=== PATIENT | male | born 2000 | race Hispanic/Latino ===

== ENCOUNTER 2022-01-08 00:10 | Emergency (ER) | payer OTHER ==
[~2022-01-08] VITALS: Ht 180.3 cm; Wt 117.0 kg
[2022-01-08 00:47] VITALS: BP 142/88
[2022-01-08 00:55] LABS: CREATININE 1.3 mg/dL (0.5-1.5); POTASSIUM 3.3 mmol/L (3.5-5.1)
[2022-01-08 00:57] LABS: BASOPHILS % (AUTO) 0.2 % (0.0-5.0); EOSINOPHILS % (AUTO) 0.5 % (0.0-8.0); HEMATOCRIT 48.7 % (36-48); LYMPHOCYTES % (AUTO) 20.4 % (21.0-51.0); MEAN CORPUSCULAR HGB CONC 35.9 g/dL (32.0-36.0); MEAN CORPUSCULAR VOLUME 83.5 fL (79-99); MONOCYTES % (AUTO) 8.2 % (3.0-13.0); NEUTROPHILS % (AUTO) 70.3 % (40.0-77.0); PLATELET COUNT (AUTO) 283 K/uL (130-400); RED BLOOD CELL COUNT(AUTO) 5.83 MIL/uL (4.00-5.50); RED CELL DISTRIBUTION WIDTH 12.4 % (11.0-15.5); WHITE BLOOD COUNT (AUTO) 11.2 K/uL (4.8-10.8)
[2022-01-08 00:59] LABS: ALBUMIN 4.6 g/dL (3.5-5.0); TOTAL PROTEIN, SERUM 8.4 g/dL (6.0-8.3)
[2022-01-08] MEDS ORDERED: PANTOPRAZOLE 40 MG/VIAL IVP ONE (01:00)
[2022-01-08] MEDS ORDERED: ONDANSETRON 4MG INJ IVP ONE (01:00)
[2022-01-08] MEDS ORDERED: KETOROLAC 30MG VIAL (30MG/ML) IVP ONE (01:00)
[2022-01-08] MEDS ORDERED: 0.9%NACL 1000ML 1,000 ML IV ONE (01:00)
[2022-01-08] MEDS ORDERED: ACET-2079 PO (02:11)
[2022-01-09] MEDS ORDERED: FAMO-136 PO (19:30)
[2022-01-09] MEDS ORDERED: ONDA4TAB10 PO (19:30)
[2022-01-09] MEDS ORDERED: DICY20TA2 PO (19:30)
== END 2022-01-08 02:32 | disposition home or self-care (01) ==
LOC: EDSEX 00:10 → EDH 00:10
DX: K80.70 Calculus of gallbladder and bile duct without cholecystitis without obstruction (principal); F45.8 Other somatoform disorders
CPT/HCPCS: 99284; 96374; 76705; 96375; 96361; 80053; 83690; 85025; 36415; J7030; J2405; J1885; C9113

== ENCOUNTER 2022-01-09 18:36 | Emergency (ER) | payer OTHER ==
[~2022-01-09] VITALS: Ht 180.3 cm; Wt 117.0 kg
[~2022-01-09 18:36] MED LIST: ACET-2079 PO
[2022-01-09] MEDS ORDERED: MORPHINE 2 MG SYG IVP ONE (19:00)
[2022-01-09] MEDS ORDERED: ONDANSETRON 4MG INJ IVP ONE (19:00)
[2022-01-09 19:09] LABS: BASOPHILS % (AUTO) 0.5 % (0.0-5.0); EOSINOPHILS % (AUTO) 0.5 % (0.0-8.0); HEMATOCRIT 47.4 % (42-54); MEAN CORPUSCULAR HGB CONC 36.1 g/dL (32.0-36.0); MEAN CORPUSCULAR VOLUME 83.2 fL (79-99); MONOCYTES % (AUTO) 9.8 % (3.0-13.0); NEUTROPHILS % (AUTO) 64.9 % (40.0-77.0); PLATELET COUNT (AUTO) 303 K/uL (130-400); RED CELL DISTRIBUTION WIDTH 12.3 % (11.0-15.5); WHITE BLOOD COUNT (AUTO) 11.4 K/uL (4.8-10.8)
[2022-01-09 19:12] LABS: APPEARANCE,URINE CLEAR (CLEAR); BILIRUBIN,URINE MODERATE (NEGATIVE); COLOR,URINE YELLOW (YELLOW); GLUCOSE, URINE (UA) NEGATIVE (NEGATIVE); KETONES,URINE >=80 mg/dL (NEGATIVE); LEUKOCYTE ESTERASE ,URINE NEGATIVE (NEGATIVE); NITRATE,URINE NEGATIVE (NEGATIVE); OCCULT BLOOD,URINE NEGATIVE (NEGATIVE); PROTEIN,URINE TRACE mg/dL (NEGATIVE)
[2022-01-09 19:13] LABS: ALBUMIN 4.4 g/dL (3.5-5.0); CREATININE 1.3 mg/dL (0.5-1.5); POTASSIUM 3.3 mmol/L (3.5-5.1); TOTAL PROTEIN, SERUM 8.2 g/dL (6.0-8.3)
[2022-01-09] MEDS ORDERED: FAMO-136 PO (19:30)
[2022-01-09] MEDS ORDERED: DICY20TA2 PO (19:30)
[2022-01-09] MEDS ORDERED: ONDA4TAB10 PO (19:30)
[2022-01-09 19:33] VITALS: BP 113/62
[2022-01-09 19:38] LABS: BACTERIA,URINE Few /HPF (None Seen); RBC,URINE None Seen /HPF (0-1)
[2022-01-09 19:40] LABS: MUCUS,URINE Few LPF (None Seen); SQUAMOUS EPITHELIAL CELL,UR None Seen /HPF (0-2)
== END 2022-01-09 20:10 | disposition home or self-care (01) ==
LOC: EDH 18:36
DX: K80.20 Calculus of gallbladder without cholecystitis without obstruction (principal); Z20.822 Contact with and (suspected) exposure to COVID-19; Z79.899 Other long term (current) drug therapy
CPT/HCPCS: 99284; 96374; 76705; 87635; 96375; 80053; 83690; 85025; 81001; 36415; C9803; J2405

== ENCOUNTER 2022-06-01 22:53 | Inpatient (IN) | payer OTHER ==
[~2022-06-01] VITALS: Ht 180.3 cm; Wt 117.0 kg
[~2022-06-01 22:53] MED LIST changes: +DICY20TA2 PO; +FAMO-136 PO; +ONDA4TAB10 PO
[2022-06-01 23:22] LABS: BASOPHILS % (AUTO) 0.3 % (0.0-5.0); EOSINOPHILS % (AUTO) 0.1 % (0.0-8.0); HEMATOCRIT 48.8 % (42-54); LYMPHOCYTES % (AUTO) 10.1 % (21.0-51.0); MEAN CORPUSCULAR HEMOGLOBIN 30.2 pg (27.0-33.0); MEAN CORPUSCULAR HGB CONC 36.1 g/dL (32.0-36.0); MEAN CORPUSCULAR VOLUME 83.8 fL (79-99); MONOCYTES % (AUTO) 4.2 % (3.0-13.0); NEUTROPHILS % (AUTO) 84.9 % (40.0-77.0); PLATELET COUNT (AUTO) 317 K/uL (130-400); RED BLOOD CELL COUNT(AUTO) 5.82 MIL/uL (4.50-6.20); RED CELL DISTRIBUTION WIDTH 12.1 % (11.0-15.5)
[2022-06-01] MEDS ORDERED: 0.9%NACL 1000ML 1,000 ML IV ONE (23:30)
[2022-06-01] MEDS ORDERED: DiphenhydrAMINE HCL 50 MG/ML VIAL IV ONE (23:30)
[2022-06-01] MEDS ORDERED: FAMOTIDINE 20MG VIAL IV ONE (23:30)
[2022-06-01] MEDS ORDERED: PROCHLORPERAZINE 10MG/2ML INJ IV ONE (23:30)
[2022-06-01 23:38] LABS: CREATININE 1.5 mg/dL (0.5-1.5); POTASSIUM 3.3 mmol/L (3.5-5.1)
[2022-06-01 23:42] LABS: ALBUMIN 4.9 g/dL (3.5-5.0); TOTAL PROTEIN, SERUM 8.7 g/dL (6.0-8.3)
[2022-06-02] MEDS ORDERED: 0.9%NACL 1000ML 1,000 ML IV ONE (01:00)
[2022-06-02] MEDS ORDERED: POTASSIUM BICARB/CIT AC 25 MEQ TABLET.EFF PO ONE (01:00)
[2022-06-02 01:12] LABS: APPEARANCE,URINE CLEAR (CLEAR); BILIRUBIN,URINE NEGATIVE (NEGATIVE); COLOR,URINE YELLOW (YELLOW); GLUCOSE, URINE (UA) NEGATIVE (NEGATIVE); KETONES,URINE 150 mg/dL (NEGATIVE); LEUKOCYTE ESTERASE ,URINE NEGATIVE Leu/uL (NEGATIVE); NITRATE,URINE NEGATIVE (NEGATIVE); OCCULT BLOOD,URINE NEGATIVE (NEGATIVE); PH,URINE 8.5 (5.0-8.0); PROTEIN,URINE 70 mg/dL (NEGATIVE)
[2022-06-02 01:16] LABS: MUCUS,URINE FEW LPF (None Seen); SQUAMOUS EPITHELIAL CELL,UR FEW /HPF (0-2); WBC,URINE 0-1 /HPF (0-1)
[2022-06-02] MEDS ORDERED: HYDROMORPHONE 0.5 MG SYG (0.5MG/0.5ML) ONE (01:20)
[2022-06-02] MEDS ORDERED: HYDROMORPHONE 0.5 MG SYG (0.5MG/0.5ML) IVP ONE (01:30)
[2022-06-02] MEDS ORDERED: CEFTRIAXONE 1G VIAL IVP ONE (03:30)
[2022-06-02] MEDS ORDERED: HYDROCODONE/ACETAMINOPHEN 5/325 MG TAB PO PRN ×2 (04:00)
[2022-06-02] MEDS ORDERED: HYDROMORPHONE 1 MG INJ IV PRN (04:00)
[2022-06-02] MEDS ORDERED: ACETAMINOPHEN 325 MG TAB PO PRN (04:00)
[2022-06-02] MEDS ORDERED: ZOSYN 3.375GM+NS 50ML 50 ML ONE (04:10)
[2022-06-02] MEDS ORDERED: CEFTRIAXONE 1G VIAL ONE (04:10)
[2022-06-02] MEDS: 0.9%NACL 1000ML 1,000 ML IV SCH ×3 (04:34→20:16)
[2022-06-02] MEDS: ZOSYN 3.375GM+NS 50ML 50 ML IV SCH ×3 (04:34→20:05)
[2022-06-02] MEDS ORDERED: POTASSIUM CHLORIDE 10% ELIXIR 20 MEQ/15 ML UDCUP PO PRN (05:00)
[2022-06-02] MEDS ORDERED: KCL 20 MEQ ERTAB PO PRN (05:00)
[2022-06-02] MEDS ORDERED: POTASSIUM CHLORIDE 10MEQ/100ML 100 ML IV PRN (05:00)
[2022-06-02] MEDS ORDERED: LIDOCAINE HCL-MPF 1% 2ML VIAL IV PRN (05:00)
[2022-06-02] MEDS ORDERED: CLOPIDOGREL 300MG TAB ONE (05:51)
[2022-06-02] MEDS ORDERED: ASPIRIN 81MG CHEW TAB ONE (05:51)
[2022-06-02] MEDS ORDERED: HEPARIN 25,000 UNITS/250ML D5W 0 ML IV ONE (05:53)
[2022-06-02] MEDS ORDERED: HEPARIN 5,000 UNIT VIAL ONE (05:53)
[2022-06-02 06:41] LABS: BASOPHILS % (AUTO) 0.2 % (0.0-5.0); EOSINOPHILS % (AUTO) 0.2 % (0.0-8.0); HEMATOCRIT 45.8 % (42-54); LYMPHOCYTES % (AUTO) 19.5 % (21.0-51.0); MEAN CORPUSCULAR HEMOGLOBIN 29.9 pg (27.0-33.0); MEAN CORPUSCULAR HGB CONC 35.2 g/dL (32.0-36.0); MONOCYTES % (AUTO) 8.1 % (3.0-13.0); NEUTROPHILS % (AUTO) 71.5 % (40.0-77.0); PLATELET COUNT (AUTO) 294 K/uL (130-400); RED BLOOD CELL COUNT(AUTO) 5.39 MIL/uL (4.50-6.20); RED CELL DISTRIBUTION WIDTH 12.5 % (11.0-15.5); WHITE BLOOD COUNT (AUTO) 13.3 K/uL (4.8-10.8)
[2022-06-02 06:52] LABS: ALBUMIN 4.1 g/dL (3.5-5.0); CREATININE 1.5 mg/dL (0.5-1.5); POTASSIUM 3.9 mmol/L (3.5-5.1); TOTAL PROTEIN, SERUM 7.6 g/dL (6.0-8.3)
[2022-06-02 07:09] LABS: HEMOGLOBIN A1C 5.2 % (4.0-6.0)
[2022-06-02] MEDS: ONDANSETRON 4MG INJ IV PRN (07:34)
[2022-06-02 07:47] LABS: ERYTHROCYTE SEDIMENTATION RATE 1 MM/HR (0-15)
[2022-06-02] MEDS: FAMOTIDINE 20MG VIAL IV SCH ×2 (08:29→20:05)
[2022-06-02 10:10] VITALS: BP 135/68
[2022-06-02] MEDS: MORPHINE 2 MG SYG IV PRN ×2 (11:28→20:09)
[2022-06-02] MEDS ORDERED: PROMETHAZINE HCL 25 MG/ML 1ML AMPULE IM ONE (11:30)
[2022-06-02 23:48] VITALS: BP 132/69
[2022-06-03] VITALS (21 sets, daily range): BP systolic 115–169; BP diastolic 64–112
[2022-06-03] MEDS: 0.9%NACL 1000ML 1,000 ML IV SCH ×2 (04:35→12:09)
[2022-06-03] MEDS: ZOSYN 3.375GM+NS 50ML 50 ML IV SCH ×4 (04:47→20:34)
[2022-06-03 05:10] LABS: BASOPHILS % (AUTO) 0.4 % (0.0-5.0); HEMATOCRIT 42.7 % (42-54); LYMPHOCYTES % (AUTO) 37.8 % (21.0-51.0); MEAN CORPUSCULAR HEMOGLOBIN 30.3 pg (27.0-33.0); MEAN CORPUSCULAR HGB CONC 34.2 g/dL (32.0-36.0); MEAN CORPUSCULAR VOLUME 88.6 fL (79-99); MONOCYTES % (AUTO) 7.3 % (3.0-13.0); NEUTROPHILS % (AUTO) 53.3 % (40.0-77.0); PLATELET COUNT (AUTO) 219 K/uL (130-400); RED BLOOD CELL COUNT(AUTO) 4.82 MIL/uL (4.50-6.20); RED CELL DISTRIBUTION WIDTH 12.5 % (11.0-15.5); WHITE BLOOD COUNT (AUTO) 10.1 K/uL (4.8-10.8)
[2022-06-03 05:30] LABS: ALBUMIN 3.7 g/dL (3.5-5.0); CREATININE 1.5 mg/dL (0.5-1.5); MAGNESIUM 2.1 mg/dL (1.80-2.40); POTASSIUM 3.8 mmol/L (3.5-5.1); TOTAL PROTEIN, SERUM 6.7 g/dL (6.0-8.3)
[2022-06-03] MEDS: MORPHINE 2 MG SYG IV PRN (06:18)
[2022-06-03] MEDS: ONDANSETRON 4MG INJ IV PRN (06:27)
[2022-06-03] MEDS ORDERED: METOCLOPRAMIDE 10 MG/2 ML VIAL IVP PRN (08:30)
[2022-06-03] MEDS ORDERED: METOCLOPRAMIDE 10 MG/2 ML VIAL IVP SCH (08:30)
[2022-06-03] MEDS ORDERED: PROMETHAZINE HCL 25 MG/ML 1ML AMPULE IM SCH (08:30)
[2022-06-03] MEDS: FAMOTIDINE 20MG VIAL IV SCH ×2 (09:13→20:34)
[2022-06-03] MEDS ORDERED: BUPIVACAINE/PF 0.5% 10ML VIAL ONE (12:35)
[2022-06-03] MEDS ORDERED: LIDOCAINE HCL 1% 20 ML VIAL ONE (12:35)
[2022-06-03] MEDS: KETOROLAC 30MG VIAL (30MG/ML) IVP PRN ×2 (12:52→23:42)
[2022-06-03] MEDS ORDERED: DEXAMETHASONE SOD PHOSPHATE 10MG/ML 1ML VIAL ONE (15:14)
[2022-06-03] MEDS ORDERED: SUCCINYLCHOLINE CHLORIDE 20 MG/ML 10 ML VIAL ONE ×2 (15:14→15:17)
[2022-06-03] MEDS ORDERED: NEOSTIGMINE 5MG/5ML SYR IV ONE (15:15)
[2022-06-03] MEDS ORDERED: ONDANSETRON 4MG INJ ONE (15:15)
[2022-06-03] MEDS ORDERED: FENTANYL CITRATE PF 50 MCG/1 ML 2ML VIAL ONE ×2 (15:15→18:11)
[2022-06-03] MEDS ORDERED: PROPOFOL 10 MG/ML 20ML VIAL IV ONE ×2 (15:15→17:22)
[2022-06-03] MEDS ORDERED: GLYCOPYRROLATE 1 MG/5 ML SYRINGE ONE (15:15)
[2022-06-03] MEDS ORDERED: ROCURONIUM 10MG/1ML SYR 10 MG/ML ML ONE (15:16)
[2022-06-03] MEDS ORDERED: MIDAZOLAM HCL 1 MG/ML 2ML VIAL ONE ×2 (15:16→15:43)
[2022-06-03] MEDS ORDERED: LIDOCAINE PF 100MG/5ML (2%) SYRINGE 5ML ONE (15:18)
[2022-06-03] MEDS ORDERED: MEPERIDINE-PF 25 MG/ML SYG ONE ×3 (17:27→18:06)
[2022-06-03] MEDS ORDERED: KETOROLAC 30MG VIAL (30MG/ML) ONE (17:29)
[2022-06-03] MEDS: HYDROMORPHONE 1 MG INJ ONE ×2 (18:28→18:40)
[2022-06-03] MEDS ORDERED: HYDROMORPHONE 1 MG INJ IVP ONE (18:30)
[2022-06-04] MEDS ORDERED: OXYCODONE/ACETAMIN 5/325MG TAB PO PRN
[2022-06-04] MEDS: 0.9%NACL 1000ML 1,000 ML IV SCH ×4 (01:28→20:55)
[2022-06-04 03:16] VITALS: BP 117/76
[2022-06-04] MEDS: ZOSYN 3.375GM+NS 50ML 50 ML IV SCH ×3 (05:48→20:55)
[2022-06-04] MEDS ORDERED: PHENAZOPYRIDINE HCL 200 MG TABLET PO SCH (06:00)
[2022-06-04 08:00] VITALS: BP 165/88
[2022-06-04] MEDS: FAMOTIDINE 20MG VIAL IV SCH ×2 (08:12→20:55)
[2022-06-04] MEDS: ONDANSETRON 4MG INJ IV PRN ×2 (08:15→20:55)
[2022-06-04 10:50] LABS: BASOPHILS % (AUTO) 0.1 % (0.0-5.0); HEMATOCRIT 46.6 % (42-54); LYMPHOCYTES % (AUTO) 11.1 % (21.0-51.0); MEAN CORPUSCULAR HGB CONC 35.6 g/dL (32.0-36.0); MEAN CORPUSCULAR VOLUME 84.1 fL (79-99); MONOCYTES % (AUTO) 9.1 % (3.0-13.0); NEUTROPHILS % (AUTO) 79.4 % (40.0-77.0); PLATELET COUNT (AUTO) 288 K/uL (130-400); RED BLOOD CELL COUNT(AUTO) 5.54 MIL/uL (4.50-6.20); RED CELL DISTRIBUTION WIDTH 12.1 % (11.0-15.5); WHITE BLOOD COUNT (AUTO) 16.3 K/uL (4.8-10.8)
[2022-06-04 10:57] LABS: CREATININE 1.2 mg/dL (0.5-1.5); POTASSIUM 3.9 mmol/L (3.5-5.1)
[2022-06-04] MEDS ORDERED: PROMETHAZINE HCL 25 MG TABLET PO PRN (11:00)
[2022-06-04 11:57] VITALS: BP 150/88
[2022-06-04] MEDS: ACETAMINOPHEN 325 MG TAB PO PRN (14:26)
[2022-06-04] MEDS ORDERED: METOCLOPRAMIDE 10 MG/2 ML VIAL IVP ONE (15:30)
[2022-06-04 16:00] VITALS: BP 148/80
[2022-06-04] MEDS: METOCLOPRAMIDE 10 MG/2 ML VIAL IVP SCH (17:14)
[2022-06-04] MEDS ORDERED: PHARMACY COMMUNICATION MISC SCH (17:30)
[2022-06-04] MEDS ORDERED: COMPOUND PO MISCELLANEOUS 1 EACH MISC MISC PRN (18:00)
[2022-06-04] MEDS ORDERED: LIDO 2% VISC 30ML+MAG/AL/SIMETH 30ML+DICYCLOMINE 20MG 10ML PO ONE ×3 (18:30)
[2022-06-04 20:13] VITALS: BP 156/70
[2022-06-04] MEDS: KETOROLAC 30MG VIAL (30MG/ML) IVP PRN (20:55)
[2022-06-04 23:28] VITALS: BP 155/85
[2022-06-05 04:00] VITALS: BP 148/76
[2022-06-05 05:17] LABS: BASOPHILS % (AUTO) 0.4 % (0.0-5.0); EOSINOPHILS % (AUTO) 0.2 % (0.0-8.0); HEMATOCRIT 43.2 % (42-54); LYMPHOCYTES % (AUTO) 23.6 % (21.0-51.0); MEAN CORPUSCULAR HEMOGLOBIN 29.7 pg (27.0-33.0); MEAN CORPUSCULAR HGB CONC 35.2 g/dL (32.0-36.0); MEAN CORPUSCULAR VOLUME 84.5 fL (79-99); MONOCYTES % (AUTO) 11.2 % (3.0-13.0); NEUTROPHILS % (AUTO) 64.3 % (40.0-77.0); PLATELET COUNT (AUTO) 240 K/uL (130-400); RED BLOOD CELL COUNT(AUTO) 5.11 MIL/uL (4.50-6.20); WHITE BLOOD COUNT (AUTO) 11.4 K/uL (4.8-10.8)
[2022-06-05 05:35] LABS: ALANINE AMINOTRANSFERASE 245 U/L (12-78); ASPARTATE AMINOTRANSFERASE 101 U/L (10-37); CARBON DIOXIDE 26 mmol/L (21-32); CHLORIDE 104 mmol/L (101-111); CREATININE 1.3 mg/dL (0.5-1.5); GLOMERULAR FILTR. RATE CALC 73 mL/min (>60); GLUCOSE,RANDOM 92 mg/dL (70-105); POTASSIUM 3.4 mmol/L (3.5-5.1); SODIUM SERUM 142 mmol/L (136-145); TOTAL PROTEIN, SERUM 7.3 g/dL (6.0-8.3); UREA NITROGEN, BLOOD 12 mg/dL (7-18)
[2022-06-05 05:40] LABS: CRP QUANTITATIVE < 2.00 mg/L (0.00-9.0)
[2022-06-05] MEDS: 0.9%NACL 1000ML 1,000 ML IV SCH (05:47)
[2022-06-05] MEDS: METOCLOPRAMIDE 10 MG/2 ML VIAL IVP SCH ×2 (05:47→10:52)
[2022-06-05] MEDS: ZOSYN 3.375GM+NS 50ML 50 ML IV SCH ×2 (05:47→13:23)
[2022-06-05 07:30] VITALS: BP 145/72
[2022-06-05] MEDS: FAMOTIDINE 20MG VIAL IV SCH (08:40)
[2022-06-05] MEDS ORDERED: AMOX1TAB16 PO (11:22)
[2022-06-05 11:30] VITALS: BP 154/72
[2022-06-05] MEDS: ACETAMINOPHEN 325 MG TAB PO PRN (11:41)
== END 2022-06-05 16:30 | disposition home or self-care (01) | DRG 419 ==
LOC: EDH 22:53 → EDHIP 22:54 → 3CH 06-02 22:16
PROVIDERS: ADMIT Hospitalist; ATTEND Hospitalist
PROC: 0FT44ZZ Resection of Gallbladder, Percutaneous Endoscopic Approach (ICD-10-PCS; principal; 2022-06-03 16:30)
DX: K80.01 Calculus of gallbladder with acute cholecystitis with obstruction (principal); Z82.49 Family history of ischemic heart disease and other diseases of the circulatory system; Z20.822 Contact with and (suspected) exposure to COVID-19
CPT/HCPCS: 36415; 71045; 74176; 76700; 80048; 80053; 81001; 83036; 83690; 83735; 84145; 85025; 85651; 86140; 87635; G0378; J0330; J0696; J0780; J1100; J1170; J1200; J1644; J1885; J2001; J2175; J2250; J2405; J2543; J2550; J2704; J2710; J2765; J3010; J3490; J7030; J7120; Q0169

== ENCOUNTER 2022-11-17 18:43 | Emergency (ER) | payer OTHER ==
[~2022-11-17] VITALS: Ht 180.3 cm; Wt 117.9 kg
[~2022-11-17 18:43] MED LIST changes: +AMOX1TAB16 PO
[2022-11-17 19:48] VITALS: BP 128/72
[2022-11-17] MEDS ORDERED: ONDANSETRON ODT 4MG TAB ONE (21:17)
[2022-11-17] MEDS ORDERED: LIDOCAINE HCL 2% VISCOUS 15 ML UDCUP PO ONE (21:30)
[2022-11-17] MEDS ORDERED: ONDANSETRON 4MG TABLET PO ONE (21:30)
[2022-11-17] MEDS ORDERED: MAG/ALUM/SIMETH 30 ML UDCUP PO ONE (21:30)
[2022-11-17] MEDS ORDERED: ONDA-104 PO (21:38)
[2022-11-17] MEDS ORDERED: OMEP40CA21 PO (21:38)
[2022-11-17] MEDS ORDERED: MAG-55 PO (21:38)
== END 2022-11-17 22:00 | disposition home or self-care (01) ==
LOC: EDH 18:43
DX: K27.9 Peptic ulcer, site unspecified, unspecified as acute or chronic, without hemorrhage or perforation (principal); F17.200 Nicotine dependence, unspecified, uncomplicated; Z90.49 Acquired absence of other specified parts of digestive tract; Z79.899 Other long term (current) drug therapy

== ENCOUNTER 2025-03-14 15:34 | Emergency (ER) | payer SELFPAY ==
[~2025-03-14] VITALS: Ht 180.3 cm; Wt 124.7 kg
[~2025-03-14 15:34] MED LIST changes: -ACET-2079 PO; -AMOX1TAB16 PO; -DICY20TA2 PO; -FAMO-136 PO; +MAG-55 PO; +OMEP40CA21 PO; +ONDA-104 PO; -ONDA4TAB10 PO
[2025-03-14] MEDS: NACL IV ONE (16:48)
[2025-03-14 16:51] LABS: IMMATURE GRANULOCYTE ABSOLUTE 0.06 K/uL (0-1); NUCLEATED RED BLOOD CELLS 0.0 % (0.0-0.19); PLATELET COUNT (AUTO) 298 K/uL (130-400); RED BLOOD CELL COUNT(AUTO) 5.73 MIL/uL (4.50-6.20); RED CELL DISTRIBUTION WIDTH 12.3 % (11.0-15.5); WHITE BLOOD COUNT (AUTO) 13.3 K/uL (4.8-10.8)
[2025-03-14 17:02] LABS: CREATININE 1.4 mg/dL (0.5-1.3); GLOMERULAR FILTR. RATE CALC 71 mL/min (>90); GLUCOSE,RANDOM 125 mg/dL (70-105); INR 1.01 (0.85-1.15); SODIUM SERUM 136 mmol/L (136-145); UREA NITROGEN, BLOOD 13 mg/dL (7-18)
[2025-03-14 17:08] LABS: ALCOHOL, BLOOD < 3 mg/dL (0-10); ASPARTATE AMINOTRANSFERASE 28 U/L (10-37); CREATINE KINASE, TOTAL 119 U/L (21-232); TOTAL PROTEIN, SERUM 8.4 g/dL (6.0-8.3)
[2025-03-14] MEDS: PROCHLORPERAZINE 10MG/2ML INJ IV ONE (18:25)
--- NOTE | 2025-03-14 18:56 | ERN ---
General Chief Complaint: Nausea,Vomiting,Diarrhea Stated Complaint: VOMITING BLOOD Time Seen by MD: 15:45 History of Present Illness Initial Comments 24-year-old male otherwise healthy presents for vomiting and epigastric pain. Patient reports that for the last week to 10 days he has had multiple episodes of vomiting throughout the day. Decreased oral intake. He reports some epigastric discomfort that waxes and wanes. No diarrhea. No fevers. He reports he had a similar episode about a year ago. He has been taking frequent warm showers to use the pain. He does report frequent marijuana use. Allergies: Coded Allergies: shellfish derived (Unverified Allergy, Unknown, HIVES, 06/02/22) Home Meds Active Scripts Ondansetron (Ondansetron Odt) 4 Mg Tab.rapdis, 4 MG PO Q6HPRN PRN for nausea, #16 TAB 0 Refills Prov:VIC HANSON MD 03/14/25 Ondansetron HCl (Ondansetron HCl) 4 Mg Tablet, 4 MG PO TIDP PRN for VOMITING, #20 TAB Prov:ALBERTO KOWALSKI MD 11/17/22 Mag Hydrox/Al Hydrox/Simeth (Maalox Maximum Strength Susp) 355 Ml Oral.susp, 355 ML PO QIDP PRN for PAIN, #300 ML Prov:ALBERTO KOWALSKI MD 11/17/22 Omeprazole (Omeprazole) 40 Mg Capsule.dr, 40 MG PO DAILY, #30 CAP Prov:ALBERTO KOWALSKI MD 11/17/22 Past Medical History Past Medical History: No Pertinent History Medical History Other: Gallbladder disease Past Surgical History: Cholecystectomy Family History Family History: Negative Social History Social History: Smokers, Other ROS Dictation CONSTITUTIONAL: No chills, no fever, no weakness, no diaphoresis, no malaise. HEAD/FACE: No signs of trauma. EENT: No eye pain, no blurred vision, no tearing, no double vision, no ear pain, no ear discharge, no nose pain, no nasal congestion, no throat pain, no throat swelling, no mouth pain. RESPIRATORY: No cough, no orthopnea, no SOB, no stridor, no wheezing. CARDIOVASCULAR: No chest pain, no edema, no palpitations, no syncope. GASTROINTESTINAL/ABDOMINAL epigastric pain frequent vomiting GENITOURINARY: No abnormal discharge, no dysuria, no frequent urination, no hematuria. No complaints of pain in the genitals. MUSCULOSKELETAL: No back pain, no gout, no joint pain, no joint swelling, no muscle pain, no muscle stiffness, no neck pain. INTEGUMENTARY: No change in color, no change in hair/nails, no dryness, no lesion, no lumps, no rash. NEUROLOGICAL/PSYCH: No anxiety, not depressed, no emotional problem, no he adache, no numbness, no pre-existing deficit, no history of seizures, no tremors, no weakness. HEMATOLOGIC/LYMPHATIC: Not anemic, no history of blood clots, no apparent bleeding, no bruising, glands not swollen. All Systems Negative, Except as Noted. Physical Exam Physical Exam Dictation VITAL SIGNS: Reviewed. GENERAL APPEARANCE: Alert, oriented x3, moderate distress due to pain and vomiting actively retching HEAD AND FACE: Non-traumatic. EYES: PERRL, pink conjunctivas, eyelid no trauma, anterior chamber clear. EARS: Pinnas intact and no signs of trauma or erythema. Ear canals clear and n o discharge. TMs no erythema. NOSE: No discharge, no bleeding. OROPHARYNX: Mouth normal, teeth no caries, tongue pink. Pharynx clear, no erythema. Tonsils no exudates, no abscesses noted. Mucous membrane moist. NECK: Supple, non-tender, no thyromegaly, no masses, no JVD, no bruits. BREAST: Deferred. CHEST: No tenderness, no crepitus, no paradoxical movement, no retractions. LUNGS: Clear, well-ventilated, symmetric, no rales, no wheezing, no rhonchi, no stridor, good breath sounds bilaterally. HEART: Regular rate, regular rhythm, no murmur, no gallops. VASCULAR: No peripheral edema. ABDOMEN: Soft, positive bowel sounds, nondistended, no guarding, nontender, no rebound, no masses no hepatomegaly, no splenomegaly, no Britt's sign, no hernias. RECTAL: Deferred. GENITAL: Deferred. NEUROLOGICAL: Normal speech, gross motor function intact, gross sensory function intact. MUSCULOSKELETAL: Neck nontender, full range of motion, back nontender, full range of motion. EXTREMITIES: Nontender, full range of motion. SKIN: Color pink, dry, no turgor, no rash, no lacerations, no abrasions, no contusions. LYMPHATICS: Deferred. Results Laboratory and Microbiology Lab and Micro Result Laboratory Tests Test 03/14/25 16:35 White Blood Count 13.3 K/uL (4.8-10.8) H Red Blood Count 5.73 MIL/uL (4.50-6.20) Hemoglobin 17.3 g/dL (14.0-18.0) Hematocrit 48.4 % (42-54) Mean Corpuscular Volume 84.5 fL (79-99) Mean Corpuscular Hemoglobin 30.2 pg (27.0-33.0) Mean Corpuscular Hemoglobin Concent 35.7 g/dL (32.0-36.0) Red Cell Distribution Width 12.3 % (11.0-15.5) Platelet Count 298 K/uL (130-400) Mean Platelet Volume 10.0 fL (7.5-10.5) Immature Granulocyte % (Auto) 0.5 % (0-1) Neutrophils (%) (Auto) 73.6 % (40.0-77.0) Lymphocytes (%) (Auto) 18.0 % (21.0-51.0) L Monocytes (%) (Auto) 7.4 % (3.0-13.0) Eosinophils (%) (Auto) 0.2 % (0.0-8.0) Basophils (%) (Auto) 0.3 % (0.0-5.0) Neutrophils # (Auto) 9.8 K/uL (1.8-7.7) H Lymphocytes # (Auto) 2.4 K/uL (1.0-4.8) Monocytes # (Auto) 1.0 K/uL (0.1-1.0) Eosinophils # (Auto) 0.03 K/uL (0.00-0.70) Basophils # (Auto) 0.04 K/uL (0.00-0.20) Absolute Immature Granulocyte (auto 0.06 K/uL (0-1) Nucleated Red Blood Cells 0.0 % (0.0-0.19) Prothrombin Time 10.7 SEC (9.6-11.6) Prothromb Time International Ratio 1.01 (0.85-1.15) Activated Partial Thromboplast Time 25.6 SEC (26.3-35.5) L Sodium Level 136 mmol/L (136-145) Potassium Level 3.6 mmol/L (3.5-5.1) Chloride Level 102 mmol/L (101-111) Carbon Dioxide Level 17 mmol/L (21-32) L Blood Urea Nitrogen 13 mg/dL (7-18) Creatinine 1.4 mg/dL (0.5-1.3) H Glomerular Filtration Rate Calc 71 mL/min (>90) Random Glucose 125 mg/dL (70-105) H Total Calcium 10.0 mg/dL (8.5-10.1) Magnesium Level 1.80 mg/dL (1.80-2.40) Total Bilirubin 0.8 mg/dL (0.2-1.0) Direct Bilirubin 0.2 mg/dL (0.0-0.3) Aspartate Amino Transf (AST/SGOT) 28 U/L (10-37) Alanine Aminotransferase (ALT/SGPT) 73 U/L (12-78) Alkaline Phosphatase 69 U/L (50-136) Total Creatine Kinase 119 U/L (21-232) Troponin I High Sensitivity < 4.0 ng/L (4-75) L Total Protein 8.4 g/dL (6.0-8.3) H Albumin 4.8 g/dL (3.5-5.0) Lipase 70 U/L (16-77) Serum Alcohol < 3 mg/dL (0-10) MDM CC: Vomiting epigastric pain for over a week Historian: Patient Comorbidities: Frequent marijuana use, history of cholecystectomy Limitations by social determinants of health: Uninsured Differential diagnosis: Highest suspicion for cannabinoid hyperemesis syndrome, also concern for gastritis, dehydration, electrolyte abnormality, pancreatitis, biliary pathology. Vital signs: Stable. Remained stable in the ED. Labs show leukocytosis 13.3 K no shift no bands. Chemistries stable. Chemistry panel does show a carbon dioxide of 17 consistent with dehydration and hyperventilation, it is creatinine is 1.4 which appears to be mildly elevated compared to his baseline. Liver enzymes are stable. Troponin stable. CK is stable. Lipase stable. Alcohol negative. Based on the presentation, low suspicion for any surgical pathology, soft nontender nondistended abdomen. Symptoms most consistent with CHS. Patient received 1 L normal saline, Zofran here in the ER. On re-evaluation he is still vomiting given IV Reglan as well as Toradol. On re-evaluation patient is still vomiting and an considerable pain. Given 1 mg of IV Dilaudid and 10 mg of IV Compazine. 7:00 p.m. I took over care from a.m. physician This is a 24-year-old male who came in with intractable vomitings and hyperemesis. History of marijuana abuse since age 13 and he stated that he tried to quit about a month ago. Urine my re-evaluation he states that he feels significantly better and he has not provided urine sample yet Vital signs are stable tolerating p.o. liquids. We will discharge him to home with a PRN Zofran. ED Course Orders Procedure Category Date Status Time Alcohol, Blood LAB 03/14/25 Complete 15:47 Cardiac Panel LAB 03/14/25 Complete 15:47 Cbc With Differential LAB 03/14/25 Complete 15:47 Basic Metabolic Panel LAB 03/14/25 Complete 15:47 Magnesium LAB 03/14/25 Complete 15:47 Prothrombin Time With LAB 03/14/25 Complete INR 15:47 Partial LAB 03/14/25 Complete Thromboplastin Time 15:47 Hepatic Function Panel LAB 03/14/25 Complete 15:47 Lipase LAB 03/14/25 Complete 15:47 Ondansetron 4mg Inj PHA 03/14/25 Complete (Zofran 4mg Inj) 17:00 0.9% Nacl 500ml PHA 03/14/25 Complete Iv.Soln (Ns 500ml 17:00 Metoclopramide 10 PHA 03/14/25 Complete Mg/2 Ml Vial (Reglan 1 17:30 Ketorolac PHA 03/14/25 Complete Tromethamine 15mg/Ml 17:30 Hydromorphone 1 Mg PHA 03/14/25 Complete Inj (Dilaudid 1mg Inj 18:30 Prochlorperazine PHA 03/14/25 Complete 10mg/2ml Inj 18:30 Current Medications Medications (Trade) Dose Ordered Sig/Rissa Route PRN Reason Start Time Stop Time Status Last Admin Dose Admin Hydromorphone HCl (DiLAUDid 1MG INJ) 1 mg ONCE ONCE IVP 03/14/25 18:30 03/14/25 18:31 DC 03/14/25 18:25 Ketorolac Tromethamine (toRADol) 15 mg ONCE ONCE IV 03/14/25 17:30 03/14/25 17:31 DC 03/14/25 17:29 Metoclopramide HCl (regLAN 10MG IV) 5 mg ONCE ONCE IVP 03/14/25 17:30 03/14/25 17:31 DC 03/14/25 17:28 Ondansetron HCl (zoFRAN 4MG INJ) 4 mg ONCE ONCE IVP 03/14/25 17:00 03/14/25 17:01 DC 03/14/25 16:47 Prochlorperazine Edisylate (Compazine 10mg/ 2ml Inj) 10 mg ONCE ONCE IV 03/14/25 18:30 03/14/25 18:31 DC 03/14/25 18:25 Sodium Chloride 753 ml @ 251 mls/hr ONCE ONCE IV 03/14/25 17:00 03/14/25 19:59 DC 03/14/25 16:48 Vital Signs Date Time Temp Pulse Resp B/P (MAP) Pulse Ox O2 Delivery O2 Flow Rate FiO2 03/14/25 20:28 97.3 73 22 137/63 100 Room Air* 0 21 03/14/25 18:32 70 22 139/62 96 Room Air* 0 21 03/14/25 15:36 97.3 77 16 170/110 98 Room Air DX & DISP Disposition: Discharge Departure Impression: Primary Impression: Cannabinoid hyperemesis syndrome Additional Impression: Dehydration Condition: Stable Scripts Ondansetron (Ondansetron Odt) 4 Mg Tab.rapdis 4 MG PO Q6HPRN PRN for nausea, #16 TAB 0 Refills Prov: VIC HANSON MD 03/14/25 Additional Instructions: Patient and the caregiver have been informed of all the diagnostic tests and the imaging conducted during the today's visit to the emergency room and has verbalized understanding of the results I have personally reviewed and interpreted all diagnostic exams performed here in the ER today as well as the vital signs documented by the nursing staff. The patient is now being discharged to home and should follow up with the primary care physician or the specialist as directed by the ER staff. Follow-up with primary care provider in 1 to 2 days. Take medications as directed here in the emergency room. Okay to continue home medications unless otherwise discussed during your visit in the emergency room today. Return to your nearest emergency room if symptoms worsen or if there is no improvement. Call 911 if you need immediate assistance. Take Tylenol or Motrin [id number] as needed and if no contraindications are present. Increase oral hydration. A wound culture or urine culture was ordered here in the emergency room department please follow-up with primary care provider and advise them to get repeat ports from our facility. If you had any Dionicio wrap/splints that were applied here, please do not remove them until you see your primary care or specialty. I discussed with the patient that there maybe some beneficial effects with an acetylcysteine and gabapentin supplements [id number] with a marijuana withdrawal symptoms. Referrals: SELF,REFERRAL (PCP) KATIA CERRATO DO Mar 14, 2025 18:56 VIC HANSON MD Mar 14, 2025 19:33
[2025-03-14 20:28] VITALS: BP 137/63; PULSE 73; RESP 22; TEMP 97.3; O2SAT 100
[2025-03-14] MEDS ORDERED: ONDA-243 PO (20:48)
== END 2025-03-14 20:59 | disposition home or self-care (01) ==
LOC: EDH 15:34
DX: R11.10 Vomiting, unspecified (principal); E86.0 Dehydration; F17.200 Nicotine dependence, unspecified, uncomplicated; Z79.899 Other long term (current) drug therapy; Z90.49 Acquired absence of other specified parts of digestive tract; Z91.013 Allergy to seafood
CPT/HCPCS: 99284; 96374; 96375; 96361; 82550; 80076; 83735; 84484; 80048; 83690; 85025; 85610; 85730; 36415; J1885; J7040; J1171; J0780; J2405; J2765

== ENCOUNTER 2025-03-16 08:39 | Inpatient (IN) | payer SELFPAY ==
[~2025-03-16] VITALS: Ht 180.3 cm; Wt 119.0 kg
[~2025-03-16 08:39] MED LIST changes: +ONDA-243 PO
[2025-03-16 09:06] LABS: IMMATURE GRANULOCYTE ABSOLUTE 0.04 K/uL (0-1); NUCLEATED RED BLOOD CELLS 0.0 % (0.0-0.19); PLATELET COUNT (AUTO) 285 K/uL (130-400); RED BLOOD CELL COUNT(AUTO) 5.33 MIL/uL (4.50-6.20); RED CELL DISTRIBUTION WIDTH 12.5 % (11.0-15.5); WHITE BLOOD COUNT (AUTO) 11.1 K/uL (4.8-10.8)
--- NOTE | 2025-03-16 09:08 | EKG ---
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
[2025-03-16] MEDS: 0.9%NACL 1000ML 1,000 ML IV ONE (09:14)
[2025-03-16] MEDS: HALOPERIDOL INJ 5 MG/ML VIAL IM PRN (09:21)
--- NOTE | 2025-03-16 09:24 | ERN ---
General Chief Complaint: Abdominal Pain Stated Complaint: ABDOMINAL PAIN Time Seen by MD: 09:38 History of Present Illness Initial Comments This is 24-year-old male who presented to ED with complaints of 5-6 episodes of vomiting since waking up this morning, diarrhea, chills, stomach pain. Patient says that he came to ED on Wednesday with similar complaints and got discharged same day after receiving some fluids and IV medications for cyclical vomiting syndrome/hyperemesis. He says that the medications helped him for some time, he started throwing up again. He denies chest pain, palpitations, fever. Patient says that he stopped smoking marijuana 2-3 months back. On arrival to ED his vitals pulse 88, respiratory rate 20, blood pressure 147/75, saturating 98% at room air. Allergies: Coded Allergies: shellfish derived (Unverified Allergy, Unknown, HIVES, 06/02/22) Home Meds Active Scripts Ondansetron (Ondansetron Odt) 4 Mg Tab.rapdis, 4 MG PO Q6HPRN PRN for nausea, #16 TAB 0 Refills Prov:VIC HANSON MD 03/14/25 Ondansetron HCl (Ondansetron HCl) 4 Mg Tablet, 4 MG PO TIDP PRN for VOMITING, #20 TAB Prov:ALBERTO KOWALSKI MD 11/17/22 Mag Hydrox/Al Hydrox/Simeth (Maalox Maximum Strength Susp) 355 Ml Oral.susp, 355 ML PO QIDP PRN for PAIN, #300 ML Prov:ALBERTO KOWALSKI MD 11/17/22 Omeprazole (Omeprazole) 40 Mg Capsule.dr, 40 MG PO DAILY, #30 CAP Prov:ALBERTO KOWALSKI MD 11/17/22 Past Medical History Past Medical History: No Pertinent History Medical History Other: Gallbladder disease Past Surgical History: Cholecystectomy Family History Family History: Negative Social History Social History: Smokers, Other Constitutional: (+) chills, (+) weakness Respiratory: (+) short of breath; (-) cough, (-) orthopnea, (-) stridor, (-) wheezing, (-) other documentation Cardiovascular: (-) chest pain, (-) edema, (-) palpitations, (-) syncope, (-) dyspnea on exertion, (-) other documentation Gastrointestinal/Abdominal: (+) nausea, (+) vomiting, (+) diarrhea, (+) abdominal pain; (-) abdominal distention, (-) constipation, (-) rectal bleeding, (-) dark stool/melena, (-) other documentation Review of Systems: was completed Nurses Notes Reviewed: Yes Physical Exam General Appearance: (+) mild distress; (-) no apparent distress, (-) apparent distress, (-) moderate distress, (-) severe distress, (-) thin, (-) obese, (-) combative, (-) cachetic, (-) anxious, (-) other documentation Orientation: (+) alert, (+) oriented x 3; (-) disoriented, (-) other documentation Head/Face Trauma: No Respiratory: (+) chest non-tender, (+) well ventilated Heart: (+) regular Results Laboratory and Microbiology Lab and Micro Result Laboratory Tests Test 03/16/25 09:00 03/16/25 09:35 03/16/25 10:39 White Blood Count 11.1 K/uL (4.8-10.8) H Red Blood Count 5.33 MIL/uL (4.50-6.20) Hemoglobin 16.2 g/dL (14.0-18.0) Hematocrit 45.3 % (42-54) Mean Corpuscular Volume 85.0 fL (79-99) Mean Corpuscular Hemoglobin 30.4 pg (27.0-33.0) Mean Corpuscular Hemoglobin Concent 35.8 g/dL (32.0-36.0) Red Cell Distribution Width 12.5 % (11.0-15.5) Platelet Count 285 K/uL (130-400) Mean Platelet Volume 9.5 fL (7.5-10.5) Immature Granulocyte % (Auto) 0.4 % (0-1) Neutrophils (%) (Auto) 66.5 % (40.0-77.0) Lymphocytes (%) (Auto) 24.5 % (21.0-51.0) Monocytes (%) (Auto) 7.5 % (3.0-13.0) Eosinophils (%) (Auto) 0.5 % (0.0-8.0) Basophils (%) (Auto) 0.6 % (0.0-5.0) Neutrophils # (Auto) 7.4 K/uL (1.8-7.7) Lymphocytes # (Auto) 2.7 K/uL (1.0-4.8) Monocytes # (Auto) 0.8 K/uL (0.1-1.0) Eosinophils # (Auto) 0.06 K/uL (0.00-0.70) Basophils # (Auto) 0.07 K/uL (0.00-0.20) Absolute Immature Granulocyte (auto 0.04 K/uL (0-1) Nucleated Red Blood Cells 0.0 % (0.0-0.19) Sodium Level 135 mmol/L (136-145) L Potassium Level 3.3 mmol/L (3.5-5.1) L Chloride Level 101 mmol/L (101-111) Carbon Dioxide Level 20 mmol/L (21-32) L Blood Urea Nitrogen 14 mg/dL (7-18) Creatinine 1.3 mg/dL (0.5-1.3) Glomerular Filtration Rate Calc 78 mL/min (>90) Random Glucose 109 mg/dL (70-105) H Total Calcium 8.8 mg/dL (8.5-10.1) Magnesium Level 2.00 mg/dL (1.80-2.40) Total Bilirubin 1.2 mg/dL (0.2-1.0) H Direct Bilirubin 0.2 mg/dL (0.0-0.3) Aspartate Amino Transf (AST/SGOT) 28 U/L (10-37) Alanine Aminotransferase (ALT/SGPT) 68 U/L (12-78) Alkaline Phosphatase 65 U/L (50-136) Total Protein 8.0 g/dL (6.0-8.3) Albumin 4.6 g/dL (3.5-5.0) Urine Color YELLOW (YELLOW) Urine Appearance CLEAR (CLEAR) Urine pH 6.0 (5.0-8.0) Urine Specific [place] 1.033 (1.001-1.031) Urine Protein 50 mg/dL (NEGATIVE) H Urine Glucose (UA) NEGATIVE mg/dL (NEGATIVE) Urine Ketones 100 mg/dL (NEGATIVE) H Urine Occult Blood NEGATIVE (NEGATIVE) Urine Nitrate NEGATIVE (NEGATIVE) Urine Bilirubin 0.5 mg/dL (NEGATIVE) H Urine Urobilinogen 3 mg/dL (0.2-1.0) H Urine Leukocyte Esterase NEGATIVE Shankar/uL Urine RBC 0-1 /HPF (0-1) Urine WBC 2-5 /HPF (0-1) H Urine Bacteria None /HPF (None Seen) Urine Hyaline Casts 2-5 /LPF (0-1 /LPF) H Urine Opiates Screen NEGATIVE (NEGATIVE) Urine Barbiturates Screen NEGATIVE (NEGATIVE) Urine Phencyclidine Screen NEGATIVE (NEGATIVE) Urine Amphetamines Screen NEGATIVE (NEGATIVE) Urine Benzodiazepines Screen NEGATIVE (NEGATIVE) Urine Cocaine Screen NEGATIVE (NEGATIVE) Urine Marijuana (THC) Screen POSITIVE (NEGATIVE) H Troponin I High Sensitivity 4 ng/L (4-75) EKG/XRAY/US/CT/MRI EKG Comment : 2000 time 8:55 a.m. date: 03/16/2025 Rate 65 sinus rhythm STEMI: No [place] 148, QRSD 88, QT 413, QTcB 431 MDM MDM: Differential diagnosis: CYCLICAL VOMITING SYNDROME/CANNABINOID HYPEREMESIS SYNDROME Rationale: Tests considered and ordered secondary to shared decision making include: labs, ECG and radiology Previous outside records reviewed: Old ER visits. Risk of complication and/or morbidity or mortality of patient management: None Medications-Per medication reconciliation Need for hospitalization: Patient does meet criteria for hospitalization. Need for emergency major/minor surgery: No There are no social concerns with this patient. Prescription drug management Prescriptions will include symptomatic care Patient's prior external medical records from other ER visits were reviewed by me as indicated. Prior testing and results from previous visits were reviewed. Prior tests were taken into account with medical decision making and resource utilization, independent historian/historians were used to obtain complete medical history. I independently interpreted the test that were performed, results were reviewed by me and considered findings on radiology if ordered. Medical management and examination interpretation discussions were had by me with other qualified healthcare professionals as indicated for the patient's care. Patient will be admitted under the care of hospitalist group ED Course Orders Procedure Category Date Status Time Cbc With Differential LAB 03/16/25 Complete 08:49 Basic Metabolic Panel LAB 03/16/25 Complete 08:49 Magnesium LAB 03/16/25 Complete 08:49 12 Lead Ekg Tracing- EKG 03/16/25 Complete Technical 08:49 Urinalysis Profile LAB 03/16/25 Complete 08:49 Drug Screen Urine LAB 03/16/25 Complete 08:49 0.9%Nacl 1000ml (Ns PHA 03/16/25 Complete 1000ml) 09:00 Hepatic Function Panel LAB 03/16/25 Complete 09:00 Haloperidol Inj PHA 03/16/25 In Process (Haldol Inj) 09:30 Ondansetron 4mg Inj PHA 03/16/25 Complete (Zofran 4mg Inj) 09:30 Ondansetron 4mg Inj PHA 03/16/25 Complete (Zofran 4mg Inj) 09:16 Ketorolac PHA 03/16/25 Complete Tromethamine 30mg/Ml 10:30 Pantoprazole 40mg Inj PHA 03/16/25 Complete (Protonix 40mg Inj 10:30 Pantoprazole 40mg Inj PHA 03/16/25 Complete (Protonix 40mg Inj 10:17 Ketorolac PHA 03/16/25 Complete Tromethamine 30mg/Ml 10:17 Nitroglycerin 0.4mg PHA 03/16/25 In Process Sl Tab (Nitrostat) 11:00 12 Lead Ekg Tracing- EKG 03/16/25 Complete Technical 10:33 Troponin I High LAB 03/16/25 Complete Sensitivity 10:33 Chest 1vw RAD 03/16/25 Resulted 10:39 Lipase LAB 03/16/25 Logged 12:04 Current Medications Medications (Trade) Dose Ordered Sig/Rissa Route PRN Reason Start Time Stop Time Status Last Admin Dose Admin Haloperidol Lactate (Haldol Inj) 2.5 mg Q8H PRN IM ANXIETY/AGITATION 03/16/25 09:30 04/15/25 09:29 03/16/25 09:21 Ketorolac Tromethamine (toRADol) 30 mg ONCE ONCE IM 03/16/25 10:30 03/16/25 10:31 DC 03/16/25 10:23 Ketorolac Tromethamine (toRADol) 30 mg STK-MED ONCE .ROUTE 03/16/25 10:17 03/16/25 10:17 DC Nitroglycerin (Nitrostat) 0.4 mg AD PRN SL CHEST PAIN 03/16/25 11:00 04/15/25 10:59 03/16/25 10:51 Ondansetron HCl (zoFRAN 4MG INJ) 4 mg ONCE ONCE IVP 03/16/25 09:30 03/16/25 09:31 DC 03/16/25 09:21 Ondansetron HCl (zoFRAN 4MG INJ) 4 mg STK-MED ONCE .ROUTE 03/16/25 09:16 03/16/25 09:16 DC Pantoprazole Sodium (PROTonix 40MG INJ) 40 mg ONCE ONCE IVP 03/16/25 10:30 03/16/25 10:31 DC 03/16/25 10:22 Pantoprazole Sodium (PROTonix 40MG INJ) 40 mg STK-MED ONCE .ROUTE 03/16/25 10:17 03/16/25 10:17 DC Sodium Chloride 1,000 ml @ 0 mls/hr ONCE ONCE IV 03/16/25 09:00 03/16/25 09:07 DC 03/16/25 09:14 Vital Signs Date Time Temp Pulse Resp B/P (MAP) Pulse Ox O2 Delivery O2 Flow Rate FiO2 03/16/25 11:39 98.2 60 19 100/48 96 Room Air* 0 21 03/16/25 11:01 97.9 77 18 118/64 99 Room Air* 0 21 03/16/25 10:37 76 18 140/79 98 Room Air* 0 21 03/16/25 08:41 97.9 88 20 147/75 99 Room Air DX & DISP Disposition: Inpatient Decision to Admit Time: 12:09 Departure Impression: Primary Impression: Cannabinoid hyperemesis syndrome Additional Impressions: Dehydration, PUD (peptic ulcer disease), Hypokalemia Condition: Stable Referrals: SELF,REFERRAL (PCP) ATTESTATION BY PHYSICIAN I have seen and examined the patient. I reviewed the documentation, medical decision making, and treatment plan as noted by the resident provider above. I agree with the findings and plan of care. KENY BAUTISTA MD, ADIL SHAH QUADRI MD Mar 16, 2025 09:24 KENY BAUTISTA MD Mar 16, 2025 12:09
[2025-03-16 09:29] LABS: CREATININE 1.3 mg/dL (0.5-1.3); GLOMERULAR FILTR. RATE CALC 78.0 mL/min (>90); GLUCOSE,RANDOM 109.0 mg/dL (70-105); SODIUM SERUM 135.0 mmol/L (136-145); UREA NITROGEN, BLOOD 14.0 mg/dL (7-18)
[2025-03-16 09:43] LABS: APPEARANCE,URINE CLEAR (CLEAR); GLUCOSE, URINE (UA) NEGATIVE (NEGATIVE); LEUKOCYTE ESTERASE ,URINE NEGATIVE Leu/uL (NEGATIVE); NITRATE,URINE NEGATIVE (NEGATIVE); OCCULT BLOOD,URINE NEGATIVE (NEGATIVE)
[2025-03-16 09:50] LABS: AMPHET/METH SCREEN,URINE NEGATIVE (NEGATIVE); BARBITURATE SCREEN, URINE NEGATIVE (NEGATIVE); CANNABINOID SCREEN,URINE POSITIVE (NEGATIVE); COCAINE SCREEN,URINE NEGATIVE (NEGATIVE)
[2025-03-16 09:59] LABS: ADD UA MICROSCOPIC YES
[2025-03-16 10:04] LABS: ASPARTATE AMINOTRANSFERASE 28.0 U/L (10-37); TOTAL PROTEIN, SERUM 8.0 g/dL (6.0-8.3)
[2025-03-16] MEDS: NITROGLYCERIN 0.4 MG SL TAB SL PRN (10:43)
--- NOTE | 2025-03-16 10:47 | EKG ---
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
--- NOTE | 2025-03-16 11:37 | HMCIMG ---
EXAM: CR Chest, 1 View. CLINICAL HISTORY: cannabinoid hyperemisis syndrome COMPARISON: None provided. FINDINGS: LUNGS: The lungs show no infiltrate or other acute finding. PLEURAL SPACES: No evidence of pleural effusion or pneumothorax. MEDIASTINUM: Cardiac size and mediastinal contours within normal limits. BONES: No aggressive appearing osseous lesion seen. IMPRESSION: No acute cardiopulmonary pathology is evident. /[place]
[2025-03-16] MEDS: THIAMINE HCL 100 MG/ML 2ML VIAL IVP SCH (12:51)
[2025-03-16] MEDS: DEXTROSE 5 % AND 0.9 % NACL 1,000 ML IV SCH (12:52)
[2025-03-16] MEDS: PoTASSium chloRIDE 20MEQ ER 20 MEQ ERTAB PO PRN (12:53)
[2025-03-16] MEDS ORDERED: MAGNESIUM 2GM PREMIX 50ML 50 ML IV SCH (13:00)
--- NOTE | 2025-03-16 13:05 | HP ---
[facility] HISTORY AND PHYSICAL Date of Service: Mar 16, 2025 Time of Service: 13:00 HISTORY OF PRESENT ILLNESS: Date of service: 03/16/2025, patient was seen in ER room 19 This is a 24-year-old male with chronic THC use, obesity, presented to the ER for further evaluation of nonresolving, intractable nausea and vomiting ongoing for the past three days. This has been accompanied by [id number] epi gastric abdominal pain worsened with vomiting. Patient denies any hematemesis, melena or hematochezia. He has been also having loose stool about 6-7 episodes nonbloody. Denies any blood in the stool otherwise. Reports that three days ago, he had barbecue for lunch, denies any sick contacts. Patient reports that he has been having intermittent episodes with abdominal pain for about a month which improves with taking warm showers. He has been using marijuana chronically for the past 10 years, last use of marijuana was about three days ago. He uses marijuana almost every day. Patient does report having previous history of cholecystectomy in 2021 as well. 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 He was discharged home on p.r.n. antiemetics with Zofran. Patient also reports having some chest discomfort since vomiting so frequently. Denies active chest pain currently. Chest x-ray showed no acute infiltrates. Patient has not been able to tolerate oral intake for the past two days due to continuous vomiting. Patient will be admitted under hospitalist service. We will start patient on IV fluids, IV thiamine supplementation, p.r.n. antiemetics and anti-reflux med ication. We will start patient on broad-spectrum antibiotics due to concerns of infectious gastroenteritis. CT abdomen pelvis without contrast will be obtained. Consultation with GI will be requested this admission as well. Patient was extensively counseled on quitting THC use which can increase risk of cyclical vomiting/ cannabis associated hyperemesis syndrome. Patient verbalized understanding. REVIEW OF SYSTEMS CONSTITUTIONAL: Denies fevers, chills, or night sweats. No unintentional weight loss reported. NEUROLOGICAL: Denies headache, amaurosis fugax, motor weakness, sensory deficit, vertigo/spinning sensation, gait abnormalities, or tremors. ENT: No hearing loss, otalgia, otorrhea, rhinitis, rhinorrhea, hoarseness, or sore throat. CARDIOVASCULAR: Denies any exertional angina, dyspnea on exertion, orthopnea, paroxysmal nocturnal dyspnea, palpitations, life-threatening arrhythmias, claudication. PULMONARY: Denies any shortness of breath, cough, phlegm/sputum, hemoptysis, pleuritic chest pain. SLEEP: Denies morning headaches, daytime somnolence or napping. Denies difficulty falling asleep, staying asleep, waking from sleep. Denies knowledge of snoring. GASTROINTESTINAL: Nausea, vomiting, epigastric abdominal pain, diarrhea for the past three days GENITOURINARY: Denies frequency, urgency, nocturia, hematuria or incontinence (Storage/Irritative symptoms.) Low urinary stream, straining to void, urinary intermittency or hesitancy, splitting of the voiding stream, terminal dribbling. ENDOCRINOLOGIC: Denies polyuria, polydipsia, polyphagia or heat/cold intolerances. HEMATOLOGIC: Denies thrombophilia/previous clots, or coagulopathy/bleeding disorders. ONCOLOGIC: Denies personal history of malignancy. DERMATOLOGIC: Denies rashes or pruritus. PSYCHIATRIC: Denies any suicidal or homicidal ideation. Denies hallucinations. PAST MEDICAL HISTORY: Obesity, history of cannabis use disorder PAST SURGICAL HISTORY: Previous history of surgical cholecystectomy in 2021 PAST SOCIAL HISTORY: Patient denies active tobacco use, denies significant alcohol consumption, patient reports using marijuana almost daily for the past 10 years last use of marijuana was three days ago FAMILY HISTORY: Denies pertinent family history Allergies: Patient has allergic reaction to shellfish derived products Home medications: Patient reports being prescribed Zofran as outpatient for management of vomiting Coded Allergies: shellfish derived (Unverified Allergy, Unknown, HIVES, 06/02/22) PHYSICAL EXAM GENERAL APPEARANCE: The patient is awake, alert, and oriented, in no acute cardiopulmonary distress. NEUROLOGICAL: Cranial nerves II-XII grossly intact. Motor is 5/5 in bilateral upper and lower extremities proximal to distal. No sensory deficits. HEENT: Face is symmetric. Pupils are equal and reactive. Extraocular movements are intact. NECK: Supple. No JVD. No thyromegaly. No submental, submandibular, pre- /postauricular, occipital or supraclavicular lymphadenopathy. CHEST: Normal chest expansion. No Telemetry. LUNGS: Absence of any rales, rhonchi or any wheezing. CARDIOVASCULAR: Regular. S1 and S2 normal. No appreciable rubs, murmurs or gallops. ABDOMEN: Soft, mild tenderness to palpation of the epigastric region, no rebound or guarding noted : Deferred. No [place]. EXTREMITIES: Non-edematous and not cyanotic. No clubbing. Good capillary refill. SKIN: No skin breakdown. Vital Sign (Last 24 Hours) 03/16/25 11:39 Temp 98.2 Pulse 60 Resp 19 B/P (MAP) 100/48 Pulse Ox 96 O2 Delivery Room Air* O2 Flow Rate 0 FiO2 21 LABS: Laboratory: Test 03/16/25 12:28 03/16/25 10:39 03/16/25 09:35 03/16/25 09:00 Range/Units Whole Blood Glucose 90 70-110 MG/DL Troponin I High Sensitivity 4 4-75 ng/L Urine Color YELLOW YELLOW Urine Appearance CLEAR CLEAR Urine pH 6.0 5.0-8.0 Urine Specific [place] 1.033 H 1.001-1.031 Urine Protein 50 H NEGATIVE mg/dL Urine Glucose (UA) NEGATIVE NEGATIVE mg/dL Urine Ketones 100 H NEGATIVE mg/dL Urine Occult Blood NEGATIVE NEGATIVE Urine Nitrate NEGATIVE NEGATIVE Urine Bilirubin 0.5 H NEGATIVE mg/dL Urine Urobilinogen 3 H 0.2-1.0 mg/dL Urine Leukocyte Esterase NEGATIVE NEGATIVE Shankar/uL Urine RBC 0-1 0-1 /HPF Urine WBC 2-5 H 0-1 /HPF Urine Bacteria None None Seen /HPF Urine Hyaline Casts 2-5 H 0-1 /LPF /LPF Urine Opiates Screen NEGATIVE NEGATIVE Urine Barbiturates Screen NEGATIVE NEGATIVE Urine Phencyclidine Screen NEGATIVE NEGATIVE Urine Amphetamines Screen NEGATIVE NEGATIVE Urine Benzodiazepines Screen NEGATIVE NEGATIVE Urine Cocaine Screen NEGATIVE NEGATIVE Urine Marijuana (THC) Screen POSITIVE H NEGATIVE White Blood Count 11.1 H 4.8-10.8 K/uL Red Blood Count 5.33 4.50-6.20 MIL/uL Hemoglobin 16.2 14.0-18.0 g/dL Hematocrit 45.3 42-54 % Mean Corpuscular Volume 85.0 79-99 fL Mean Corpuscular Hemoglobin 30.4 27.0-33.0 pg Mean Corpuscular Hemoglobin Concent 35.8 32.0-36.0 g/dL Red Cell Distribution Width 12.5 11.0-15.5 % Platelet Count 285 130-400 K/uL Mean Platelet Volume 9.5 7.5-10.5 fL Immature Granulocyte % (Auto) 0.4 0-1 % Neutrophils (%) (Auto) 66.5 40.0-77.0 % Lymphocytes (%) (Auto) 24.5 21.0-51.0 % Monocytes (%) (Auto) 7.5 3.0-13.0 % Eosinophils (%) (Auto) 0.5 0.0-8.0 % Basophils (%) (Auto) 0.6 0.0-5.0 % Neutrophils # (Auto) 7.4 1.8-7.7 K/uL Lymphocytes # (Auto) 2.7 1.0-4.8 K/uL Monocytes # (Auto) 0.8 0.1-1.0 K/uL Eosinophils # (Auto) 0.06 0.00-0.70 K/uL Basophils # (Auto) 0.07 0.00-0.20 K/uL Absolute Immature Granulocyte (auto 0.04 0-1 K/uL Nucleated Red Blood Cells 0.0 0.0-0.19 % Sodium Level 135 L 136-145 mmol/L Potassium Level 3.3 L 3.5-5.1 mmol/L Chloride Level 101 101-111 mmol/L Carbon Dioxide Level 20 L 21-32 mmol/L Blood Urea Nitrogen 14 7-18 mg/dL Creatinine 1.3 0.5-1.3 mg/dL Glomerular Filtration Rate Calc 78 >90 mL/min Random Glucose 109 H 70-105 mg/dL Total Calcium 8.8 8.5-10.1 mg/dL Magnesium Level 2.00 1.80-2.40 mg/dL Total Bilirubin 1.2 H 0.2-1.0 mg/dL Direct Bilirubin 0.2 0.0-0.3 mg/dL Aspartate Amino Transf (AST/SGOT) 28 10-37 U/L Alanine Aminotransferase (ALT/SGPT) 68 12-78 U/L Alkaline Phosphatase 65 50-136 U/L Total Protein 8.0 6.0-8.3 g/dL Albumin 4.6 3.5-5.0 g/dL Lipase 35 16-77 U/L Current Medications Medications (Trade) Dose Ordered Sig/Rissa Route PRN Reason Start Time Stop Time Status Last Admin Dose Admin Acetaminophen (TYLenol 325MG TAB) 650 mg Q6H PRN PO MILD PAIN (1-3) 03/16/25 13:00 04/15/25 12:59 Ceftriaxone Sodium (ROCEphine 1G INJ) 1 gm Q24H IVPB 03/16/25 13:00 03/26/25 12:59 Dextrose/Sodium Chloride 1,000 ml @ 100 mls/hr Q10H IV 03/16/25 13:00 04/15/25 12:59 Diazepam (VALium 5 MG/ML 2 ML SYG) 2.5 mg Q12H PRN IV ANXIETY 03/16/25 13:00 03/23/25 12:59 Haloperidol Lactate (Haldol Inj) 2.5 mg Q8H PRN IM ANXIETY/AGITATION 03/16/25 09:30 04/15/25 09:29 03/16/25 09:21 2.5 MG Magnesium Sulfate 50 ml @ 0 mls/hr PROTOCOL IV 03/16/25 13:00 04/15/25 12:59 Nitroglycerin (Nitrostat) 0.4 mg AD PRN SL CHEST PAIN 03/16/25 11:00 04/15/25 10:59 03/16/25 10:51 0.4 MG Ondansetron HCl (zoFRAN 4MG INJ) 4 mg Q6H PRN IVP NAUSEA/VOMITING 03/16/25 13:00 04/15/25 12:59 Pantoprazole Sodium (PROTonix 40MG INJ) 40 mg DAILY IVP 03/17/25 09:00 04/16/25 08:59 Potassium Chloride 100 ml @ 100 mls/hr AD PRN IV POTASSIUM PROTOCOL 03/16/25 13:00 04/15/25 12:59 Potassium Chloride (K-Dur/Klor-Con 20meq) 20 meq AD PRN PO POTASSIUM PROTOCOL 03/16/25 13:00 04/15/25 12:59 Potassium Chloride (KCl 10% Elixir 20meq/15ml) 20 meq AD PRN PO POTASSIUM PROTOCOL 03/16/25 13:00 04/15/25 12:59 Thiamine HCl (Vitamin B-1) 100 mg Q24H IVP 03/16/25 13:00 04/15/25 12:59 DIAGNOSTICS / RADIOLOGY: SERVICE 1039 REASON: cannabinoid hyperemisis syndrome ORDERING PHYSICIAN: UBALDO BALDWIN MD PROCEDURE: CXR1VW - CHEST 1VW EXAM: CR Chest, 1 View. CLINICAL HISTORY: cannabinoid hyperemisis syndrome COMPARISON: None provided. FINDINGS: LUNGS: The lungs show no infiltrate or other acute finding. PLEURAL SPACES: No evidence of pleural effusion or pneumothorax. MEDIASTINUM: Cardiac size and mediastinal contours within normal limits. BONES: No aggressive appearing osseous lesion seen. IMPRESSION: No acute cardiopulmonary pathology is evident. 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, POA History of THC use disorder, POA Obesity, POA History of cholecystectomy, POA PLAN: Patient will be admitted to medical-surgical floor We will keep patient NPO until nausea and vomiting improves We will start patient on IV hydration with D5/NS We will start patient on potassium per protocol We will obtain a CT abdomen pelvis for further evaluation of nonresolving nausea and vomiting, patient has been having diarrhea for three days as well concerning for infectious gastroenteritis, we will obtain a GI PCR panel as well, will keep patient on IV Rocephin Consultation with GI will be requested We will start patient on Protonix IV 40 mg daily We will start patient on IV diazepam 2.5 mg twice daily and needed for management of significant agitation/anxiety We will see how patient progresses in the next 48-72 hours Patient was counseled extensively to quit marijuana use, patient verbalized understanding P.r.n. antiemetics with Zofran q.6 hours POA We will start patient on IV thiamine supplementation Date of service: 03/16/2025 Plan of care was discussed with patient and family at bedside, Eliecer Garcia MD Advanced Care Planning: Which of the following were discussed: Hospice care: Yes __ No _X_ Therapeutic options: Yes _X_ No __ Advance directives: Yes _X_ No __ Other discussions: Discussed with who?: Patient Voluntary nature of this service was explained to the patient? Yes _x_ No __ Amount of time spent: 20 minutes ELIECER GARCIA MD Mar 16, 2025 13:05
--- NOTE | 2025-03-16 15:12 | CONS ---
GASTROENTEROLOGY CONSULTATION NOTE Date of Consultation: Mar 16, 2025 Time of Consultation: 15:09 History of Present Illness: [24 yo male patient who presented to emergency room with complaints of abdominal pain with nausea and vomiting x 2 months that has worsen in the past 3 days. He states he would take a shower when abdominal pain and nausea occurred and this would help alleviate symptoms but the showers have not helped in the past 3 days. Patient reports history of marijuana use. Initial WBC of 11.1, hemoglobin 16.2, platelets 285. Chemistries significant for sodium of 135, potassium 3.3, carbon dioxide 20, glucose 109, total bilirubin 1.2. Direct bilirubin AST, ALT, alkaline phosphatase are normal. Lipase 35. CRP 1.20. Chest x-ray negative for any acute cardiopulmonary pathology. CT of abdomen and pelvis without contrast showing no acute process. On exam patient is resting in semi- Mata's in no acute distress. His respirations are even and unlabored. Bilateral breath sounds are clear. Abdomen is soft but tender to the epigastric area. Recommendations for endoscopic evaluation given. Advised to avoid spicy foods fried foods, acidic juices, caffeine, carbonated drinks, chocolate and foods that contain tomato and tomato sauces. Recommended him eat 2-3 hours before bedtime. Emphasized the important in him abstaining from smoking marijuana. Patient verbalized understanding and agreed to EGD exam. ] Review of Systems: CONSTITUTIONAL: No malaise or change in sensation of wellbeing. ENMT: No rhinorrhea, otorrhea, sinus pain, ear ache. CARDIOVASCULAR: No angina, palpitations, orthopnea or paroxysmal dyspnea. RESPIRATORY: No SOB. GASTROINTESTINAL: No abdominal pain, nausea, vomiting, diarrhea, hematemesis, melena or change in the patient's habitual bowel movements consistency/number. GENITOURINARY: No dysuria, hematuria or change in bladder continence. MUSCULOSKELETAL: No new muscle pain or decrease in muscular strength. No new joint swelling, redness or tenderness. SKIN: No new rash. Past Medical History: [ ] Past Surgical History: [ ] Past Social History: [ ] Family History: [ ] Coded Allergies: shellfish derived (Unverified Allergy, Unknown, HIVES, 06/02/22) Physical Exam: GEN: Awake, alert, oriented in person, time and place, and in no acute distress in SF in stretcher in ER bed 19. HEENT: Oral pharyngeal mucosa is moist and within normal limits. CHEST: Lung auscultation revealed normal breath sounds bilaterally. CARDIAC: Heart sounds are regular. ABD: Soft, tender to epigastric region and not distended. Normal bowel sounds. EXT: No cyanosis or clubbing. No edema. SKIN: Intact. No rashes. JOINTS: No evidence of synovitis or acute arthritis. NEURO: Alert and oriented to name, place and person. No focal motor deficits. Normal speech. Strength is normal. Vital Sign (Last 24 Hours) 03/16/25 11:39 Temp 98.2 Pulse 60 Resp 19 B/P (MAP) 100/48 Pulse Ox 96 O2 Delivery Room Air* O2 Flow Rate 0 FiO2 21 Laboratory: [ ] Laboratory: Test 03/16/25 13:00 03/16/25 12:28 03/16/25 10:39 03/16/25 09:35 Range/Units Hemoglobin A1c 4.9 4.0-6.0 % Estimated Average Glucose (eAG) 94 70-126 mg/dL Whole Blood Ketones Quantitative 1.0 H 0.0-0.6 mmol/L Whole Blood Glucose 90 70-110 MG/DL Troponin I High Sensitivity 4 4-75 ng/L Urine Color YELLOW YELLOW Urine Appearance CLEAR CLEAR Urine pH 6.0 5.0-8.0 Urine Specific [place] 1.033 H 1.001-1.031 Urine Protein 50 H NEGATIVE mg/dL Urine Glucose (UA) NEGATIVE NEGATIVE mg/dL Urine Ketones 100 H NEGATIVE mg/dL Urine Occult Blood NEGATIVE NEGATIVE Urine Nitrate NEGATIVE NEGATIVE Urine Bilirubin 0.5 H NEGATIVE mg/dL Urine Urobilinogen 3 H 0.2-1.0 mg/dL Urine Leukocyte Esterase NEGATIVE NEGATIVE Shankar/uL Urine RBC 0-1 0-1 /HPF Urine WBC 2-5 H 0-1 /HPF Urine Bacteria None None Seen /HPF Urine Hyaline Casts 2-5 H 0-1 /LPF /LPF Urine Opiates Screen NEGATIVE NEGATIVE Urine Barbiturates Screen NEGATIVE NEGATIVE Urine Phencyclidine Screen NEGATIVE NEGATIVE Urine Amphetamines Screen NEGATIVE NEGATIVE Urine Benzodiazepines Screen NEGATIVE NEGATIVE Urine Cocaine Screen NEGATIVE NEGATIVE Urine Marijuana (THC) Screen POSITIVE H NEGATIVE Test 03/16/25 09:00 Range/Units White Blood Count 11.1 H 4.8-10.8 K/uL Red Blood Count 5.33 4.50-6.20 MIL/uL Hemoglobin 16.2 14.0-18.0 g/dL Hematocrit 45.3 42-54 % Mean Corpuscular Volume 85.0 79-99 fL Mean Corpuscular Hemoglobin 30.4 27.0-33.0 pg Mean Corpuscular Hemoglobin Concent 35.8 32.0-36.0 g/dL Red Cell Distribution Width 12.5 11.0-15.5 % Platelet Count 285 130-400 K/uL Mean Platelet Volume 9.5 7.5-10.5 fL Immature Granulocyte % (Auto) 0.4 0-1 % Neutrophils (%) (Auto) 66.5 40.0-77.0 % Lymphocytes (%) (Auto) 24.5 21.0-51.0 % Monocytes (%) (Auto) 7.5 3.0-13.0 % Eosinophils (%) (Auto) 0.5 0.0-8.0 % Basophils (%) (Auto) 0.6 0.0-5.0 % Neutrophils # (Auto) 7.4 1.8-7.7 K/uL Lymphocytes # (Auto) 2.7 1.0-4.8 K/uL Monocytes # (Auto) 0.8 0.1-1.0 K/uL Eosinophils # (Auto) 0.06 0.00-0.70 K/uL Basophils # (Auto) 0.07 0.00-0.20 K/uL Absolute Immature Granulocyte (auto 0.04 0-1 K/uL Nucleated Red Blood Cells 0.0 0.0-0.19 % Sodium Level 135 L 136-145 mmol/L Potassium Level 3.3 L 3.5-5.1 mmol/L Chloride Level 101 101-111 mmol/L Carbon Dioxide Level 20 L 21-32 mmol/L Blood Urea Nitrogen 14 7-18 mg/dL Creatinine 1.3 0.5-1.3 mg/dL Glomerular Filtration Rate Calc 78 >90 mL/min Random Glucose 109 H 70-105 mg/dL Total Calcium 8.8 8.5-10.1 mg/dL Magnesium Level 2.00 1.80-2.40 mg/dL Total Bilirubin 1.2 H 0.2-1.0 mg/dL Direct Bilirubin 0.2 0.0-0.3 mg/dL Aspartate Amino Transf (AST/SGOT) 28 10-37 U/L Alanine Aminotransferase (ALT/SGPT) 68 12-78 U/L Alkaline Phosphatase 65 50-136 U/L C-Reactive Protein, Quantitative 1.20 0.5-3.0 mg/L Total Protein 8.0 6.0-8.3 g/dL Albumin 4.6 3.5-5.0 g/dL Lipase 35 16-77 U/L Procalcitonin < 0.05 L 0.05-0.5 ng/mL Thyroid Stimulating Hormone (TSH) 1.46 0.36-3.74 uIU/mL Current Medications Medications (Trade) Dose Ordered Sig/Rissa Route PRN Reason Start Time Stop Time Status Last Admin Dose Admin Acetaminophen (TYLenol 325MG TAB) 650 mg Q6H PRN PO MILD PAIN (1-3) 03/16/25 13:00 04/15/25 12:59 Ceftriaxone Sodium (ROCEphine 1G INJ) 1 gm Q24H IVPB 03/16/25 13:00 03/26/25 12:59 03/16/25 13:11 1 GM Dextrose/Sodium Chloride 1,000 ml @ 100 mls/hr Q10H IV 03/16/25 13:00 04/15/25 12:59 03/16/25 12:52 100 MLS/HR Diazepam (VALium 5 MG/ML 2 ML SYG) 2.5 mg Q12H PRN IV ANXIETY 03/16/25 13:00 03/23/25 12:59 Haloperidol Lactate (Haldol Inj) 2.5 mg Q8H PRN IM ANXIETY/AGITATION 03/16/25 09:30 03/16/25 13:46 DC 03/16/25 09:21 2.5 MG Magnesium Sulfate 50 ml @ 0 mls/hr PROTOCOL IV 03/16/25 13:00 04/15/25 12:59 Nitroglycerin (Nitrostat) 0.4 mg AD PRN SL CHEST PAIN 03/16/25 11:00 04/15/25 10:59 03/16/25 10:51 0.4 MG Ondansetron HCl (zoFRAN 4MG INJ) 4 mg Q6H PRN IVP NAUSEA/VOMITING 03/16/25 13:00 04/15/25 12:59 03/16/25 14:24 4 MG Pantoprazole Sodium (PROTonix 40MG INJ) 40 mg DAILY IVP 03/17/25 09:00 04/16/25 08:59 Potassium Chloride 100 ml @ 100 mls/hr AD PRN IV POTASSIUM PROTOCOL 03/16/25 13:00 04/15/25 12:59 Potassium Chloride (K-Dur/Klor-Con 20meq) 20 meq AD PRN PO POTASSIUM PROTOCOL 03/16/25 13:00 04/15/25 12:59 03/16/25 14:45 20 MEQ Potassium Chloride (KCl 10% Elixir 20meq/15ml) 20 meq AD PRN PO POTASSIUM PROTOCOL 03/16/25 13:00 04/15/25 12:59 Thiamine HCl (Vitamin B-1) 100 mg Q24H IVP 03/16/25 13:00 04/15/25 12:59 03/16/25 12:51 100 MG Diagnostics / Radiology: [COPY/PASTE HERE IF NO REPORTS PLEASE DELETE SECTION] Assessment: [ Abdominal pain Nausea and vomiting Marijuana use] Plan: [ Clear fluids today NPO after midnight Plan for EGD on Wednesday. Information on exam given to patient and family member at bedside. All their questions were answered to their satisfaction and they agreed to proceed with exam. Gi prophylaxis with protonix 40mg Iv BID Please call with questions, concerns, and change in clinical status. Thank you for this consult. ] EDGARD JASMINE [employer] ONCOLOGY MANAGER Mar 16, 2025 15:12
--- NOTE | 2025-03-16 15:46 | NUR ---
DCP:HOME Pt currently lives at home with his girlfriend Zaki Ascencio [phone]. pt does not have any DME, home health, or provider services. Pt is able to complete ADLs independently. SW offered pt community resource for substance abuse programs however the pt denied resources. PCP is Rory wolff and uses [facility] for any RX needs. At [place] pt will want to go home and girlfriend can assist with transportation. Addendum: 03/16/25 at 1557 by J LUIS COLUNGA SS Amended: Links added.
--- NOTE | 2025-03-16 16:23 | HMCIMG ---
CT ABDOMEN/PELVIS W/O CONTRAST REASON: abdominal pain, n/v x 3 days, diarrhea, hx of THC use COMPARISON: None. FINDINGS: Lung bases are clear. There are no focal liver lesions. There is mild grade 1 hepatic steatosis of the liver. There are normal-appearing kidneys.. Spleen and pancreas appear unremarkable. The gallbladder is surgically absent with clips in the gallbladder fossa.. Bowel loops appear unremarkable. This includes normal appearance of the appendix There is no evidence of free fluid or intraperitoneal air. There are no focal fluid collections. Aorta and retroperitoneum appear normal as do pelvic soft tissue structures. The anterior abdominal wall is intact. Osseous structures appear unremarkable. The prostate and several vesicles appears to be normal. The urinary bladder appears to be decompressed. IMPRESSION: 1. No acute process seen in the CT of abdomen and pelvis without intravenous contrast.. CT was performed with one or more following dose reduction techniques: automated exposure control, adjustment of the mA and kv according to patient's size, or use of a iterative reconstruction technique.
--- NOTE | 2025-03-16 20:29 | NUR ---
PT STATES THEY DO NOT TAKE ANY PRESCRIBED MEDICATIONS AT HOME.
--- NOTE | 2025-03-16 22:45 | NUR ---
ADMISSION NOTE RECEIVED REPORT FROM CHANCE MONTALVO. PATIENT ALERT, ORIENTED, AND ABLE TO MAKE NEEDS KNOWN. PATIENT WITH VISITOR AT BEDSIDE. PATIENT AMBULATORY, CONNECTED TO D5NS AT 100 ML/HR AT THIS TIME. NO HOME MEDICATIONS CLAIMED. PLACED CALL LIGHT WITHIN REACH OF PATIENT, TAUGHT TO USE.
[2025-03-16 23:00] VITALS: O2SAT 98
[2025-03-17] VITALS (7 sets, daily range): BP systolic 110–137; BP diastolic 51–79; PULSE 53–87; RESP 18–19; TEMP 97.3–98.2; O2SAT 99
[2025-03-17 04:22] LABS: IMMATURE GRANULOCYTE ABSOLUTE 0.02 K/uL (0-1); NUCLEATED RED BLOOD CELLS 0.0 % (0.0-0.19); PLATELET COUNT (AUTO) 248 K/uL (130-400); RED BLOOD CELL COUNT(AUTO) 4.76 MIL/uL (4.50-6.20); RED CELL DISTRIBUTION WIDTH 12.4 % (11.0-15.5); WHITE BLOOD COUNT (AUTO) 10.7 K/uL (4.8-10.8)
[2025-03-17 05:03] LABS: ASPARTATE AMINOTRANSFERASE 28.0 U/L (10-37); CREATININE 1.1 mg/dL (0.5-1.3); GLOMERULAR FILTR. RATE CALC 95.0 mL/min (>90); GLUCOSE,RANDOM 93.0 mg/dL (70-105); SODIUM SERUM 137.0 mmol/L (136-145); TOTAL PROTEIN, SERUM 6.9 g/dL (6.0-8.3); UREA NITROGEN, BLOOD 9.0 mg/dL (7-18)
[2025-03-17] MEDS: PROMETHAZINE HCL 25 MG/ML 1ML AMPULE IM ONE (11:22)
--- NOTE | 2025-03-17 17:44 | PN ---
[facility] PROGRESS NOTE Date of Service: Mar 17, 2025 Time of Service: 17:00 SUBJECTIVE: Patient is a 24-year-old male with chronic THC use, obesity, presented to the ER for further evaluation of nonresolving, intractable nausea and vomiting ongoing for the past three days. This has been accompanied by [id number] epigastric abdominal pain worsened with vomiting. He has been also having loose stool about 6-7 episodes nonbloody. Reports that three days ago, he had barbecue for lunch, denies any sick contacts. Patient reports that he has been having intermittent episodes with abdominal pain for about a month which improves with taking warm showers. He has been using marijuana chronically for the past 10 years, last use of marijuana was about three days ago. He uses marijuana almost every day. Patient does report having previous history of cholecystectomy in 2021 as well. 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 He was discharged home on p.r.n. antiemetics with Zofran. Patient also reports having some chest discomfort since vomiting so frequently. Denies active chest pain currently. Chest x-ray showed no acute infiltrates. Patient has not been able to tolerate oral intake for the past two days due to continuous vomiting. Patient will be admitted under hospitalist service. We will start patient on IV fluids, IV thiamine supplementation, p.r.n. antiemetics and anti-reflux medication. We will start patient on broad-spectrum antibiotics due to concerns of infectious gastroenteritis. CT abdomen pelvis without contrast will be obt ained. Consultation with GI will be requested this admission as well. Patient was extensively counseled on quitting THC use which can increase risk of cyclical vomiting/ cannabis associated hyperemesis syndrome. Patient verbalized understanding. 03/17/25: Patient is seen and examined at bedside in room 329. Patient is still in pain which improved from the time of admission, the patient rated the pain 8/10 in the ER while today he rated it at a 4/10. Patient still continues to have nausea and vomiting. Metoclopramide 10 mg has been added for the nausea and vomiting and Dilaudid 0.5 mg has been also ordered for the pain. Given the pain patient's tender abdomen lipase has been ordered which which came back normal at 30. Patient's abdominal CT also came back normal. Patient also mentioned that he has acid reflux quite often and feels acid coming up to his throat when lying flat, patient is started on 40 mg IV Protonix b.i.d. GI examined the patient and scheduled him for a EGD on Wednesday. Patient continues to be on IV fluid. REVIEW OF SYSTEMS CONSTITUTIONAL: Denies fevers, chills, or night sweats. No unintentional weight loss reported. NEUROLOGICAL: Denies headache, motor weakness, sensory deficit, vertigo/spinning sensation, gait abnormalities, or tremors. ENT: No hearing loss, rhinitis, rhinorrhea, hoarseness, or sore throat. CARDIOVASCULAR: Denies any exertional angina, dyspnea on exertion, orthopnea, paroxysmal nocturnal dyspnea, palpitations PULMONARY: Denies any shortness of breath, cough, phlegm/sputum, hemoptysis, pleuritic chest pain. GASTROINTESTINAL: Nausea, vomiting, epigastric abdominal pain, 3 diarrhea episodes, gastric reflux GENITOURINARY: Denies frequency, urgency, nocturia, hematuria or incontinence. ENDOCRINOLOGIC: Denies polyuria, polydipsia, polyphagia or heat/cold intolerances. DERMATOLOGIC: Denies rashes or pruritus. PHYSICAL EXAM GENERAL APPEARANCE: The patient is awake, alert, and oriented, in pain NEUROLOGICAL: Cranial nerves II-XII grossly intact. Motor is 5/5 in bilateral upper and lower extremities proximal to distal. No sensory deficits. HEENT: Face is symmetric. Pupils are equal and reactive. Extraocular movements are intact. NECK: Supple. No JVD. No lymphadenopathy. CHEST: Normal chest expansion. No Telemetry. LUNGS: Absence of any rales, rhonchi or any wheezing. CARDIOVASCULAR: Regular. S1 and S2 normal. No appreciable rubs, murmurs or gallops. ABDOMEN: Soft, epigastric and right upper quadrant tenderness, and nondistended. There is no rebound, voluntary guarding, or rigidity. : Deferred. No Oglesby. EXTREMITIES: Non-edematous and not cyanotic. No clubbing. Good capillary refill. SKIN: No skin breakdown. Vital Signs (last 8hr) Date Time Temp Pulse Resp B/P (MAP) Pulse Ox O2 Delivery O2 Flow Rate FiO2 03/17/25 16:00 98.2 53 18 123/59 99 Room Air 03/17/25 12:00 97.3 83 18 134/79 98 Room Air LABS: Laboratory: Test 03/17/25 04:06 03/16/25 13:00 03/16/25 12:28 03/16/25 10:39 Range/Units White Blood Count 10.7 4.8-10.8 K/uL Red Blood Count 4.76 4.50-6.20 MIL/uL Hemoglobin 14.6 14.0-18.0 g/dL Hematocrit 40.4 L 42-54 % Mean Corpuscular Volume 84.9 79-99 fL Mean Corpuscular Hemoglobin 30.7 27.0-33.0 pg Mean Corpuscular Hemoglobin Concent 36.1 H 32.0-36.0 g/dL Red Cell Distribution Width 12.4 11.0-15.5 % Platelet Count 248 130-400 K/uL Mean Platelet Volume 9.7 7.5-10.5 fL Immature Granulocyte % (Auto) 0.2 0-1 % Neutrophils (%) (Auto) 54.2 40.0-77.0 % Lymphocytes (%) (Auto) 35.1 21.0-51.0 % Monocytes (%) (Auto) 9.1 3.0-13.0 % Eosinophils (%) (Auto) 0.9 0.0-8.0 % Basophils (%) (Auto) 0.5 0.0-5.0 % Neutrophils # (Auto) 5.8 1.8-7.7 K/uL Lymphocytes # (Auto) 3.8 1.0-4.8 K/uL Monocytes # (Auto) 1.0 0.1-1.0 K/uL Eosinophils # (Auto) 0.10 0.00-0.70 K/uL Basophils # (Auto) 0.05 0.00-0.20 K/uL Absolute Immature Granulocyte (auto 0.02 0-1 K/uL Nucleated Red Blood Cells 0.0 0.0-0.19 % Red Blood Cell Morphology See comments Sodium Level 137 136-145 mmol/L Potassium Level 3.4 L 3.5-5.1 mmol/L Chloride Level 103 101-111 mmol/L Carbon Dioxide Level 25 21-32 mmol/L Blood Urea Nitrogen 9 7-18 mg/dL Creatinine 1.1 0.5-1.3 mg/dL Glomerular Filtration Rate Calc 95 >90 mL/min Random Glucose 93 70-105 mg/dL Total Calcium 8.2 L 8.5-10.1 mg/dL Magnesium Level 2.10 1.80-2.40 mg/dL Total Bilirubin 0.8 # 0.2-1.0 mg/dL Aspartate Amino Transf (AST/SGOT) 28 10-37 U/L Alanine Aminotransferase (ALT/SGPT) 62 12-78 U/L Alkaline Phosphatase 53 50-136 U/L Total Protein 6.9 6.0-8.3 g/dL Albumin 3.8 3.5-5.0 g/dL Lipase 30 16-77 U/L Hemoglobin A1c 4.9 4.0-6.0 % Estimated Average Glucose (eAG) 94 70-126 mg/dL Whole Blood Ketones Quantitative 1.0 H 0.0-0.6 mmol/L Whole Blood Glucose 90 70-110 MG/DL Troponin I High Sensitivity 4 4-75 ng/L Test 03/16/25 09:35 03/16/25 09:00 Range/Units Urine Color YELLOW YELLOW Urine Appearance CLEAR CLEAR Urine pH 6.0 5.0-8.0 Urine Specific [place] 1.033 H 1.001-1.031 Urine Protein 50 H NEGATIVE mg/dL Urine Glucose (UA) NEGATIVE NEGATIVE mg/dL Urine Ketones 100 H NEGATIVE mg/dL Urine Occult Blood NEGATIVE NEGATIVE Urine Nitrate NEGATIVE NEGATIVE Urine Bilirubin 0.5 H NEGATIVE mg/dL Urine Urobilinogen 3 H 0.2-1.0 mg/dL Urine Leukocyte Esterase NEGATIVE NEGATIVE Shankar/uL Urine RBC 0-1 0-1 /HPF Urine WBC 2-5 H 0-1 /HPF Urine Bacteria None None Seen /HPF Urine Hyaline Casts 2-5 H 0-1 /LPF /LPF Urine Opiates Screen NEGATIVE NEGATIVE Urine Barbiturates Screen NEGATIVE NEGATIVE Urine Phencyclidine Screen NEGATIVE NEGATIVE Urine Amphetamines Screen NEGATIVE NEGATIVE Urine Benzodiazepines Screen NEGATIVE NEGATIVE Urine Cocaine Screen NEGATIVE NEGATIVE Urine Marijuana (THC) Screen POSITIVE H NEGATIVE Direct Bilirubin 0.2 0.0-0.3 mg/dL C-Reactive Protein, Quantitative 1.20 0.5-3.0 mg/L Procalcitonin < 0.05 L 0.05-0.5 ng/mL Thyroid Stimulating Hormone (TSH) 1.46 0.36-3.74 uIU/mL Current Medications Medications (Trade) Dose Ordered Sig/Rissa Route PRN Reason Start Time Stop Time Status Last Admin Dose Admin Acetaminophen (TYLenol 325MG TAB) 650 mg Q6H PRN PO MILD PAIN (1-3) 03/16/25 13:00 04/15/25 12:59 Ceftriaxone Sodium (ROCEphine 1G INJ) 1 gm Q24H IVPB 03/16/25 13:00 03/26/25 12:59 03/17/25 13:47 1 GM Dextrose/Sodium Chloride 1,000 ml @ 100 mls/hr Q10H IV 03/16/25 13:00 04/15/25 12:59 03/16/25 23:20 100 MLS/HR Diazepam (VALium 5 MG/ML 2 ML SYG) 2.5 mg Q12H PRN IV ANXIETY 03/16/25 13:00 03/23/25 12:59 Haloperidol Lactate (Haldol Inj) 2.5 mg Q8H PRN IM ANXIETY/AGITATION 03/16/25 09:30 03/16/25 13:46 DC 03/16/25 09:21 2.5 MG Hydromorphone HCl (DiLAUDid 0.5MG INJ) 0.5 mg Q4H PRN IVP SEVERE PAIN (7-10) 03/17/25 14:00 03/22/25 13:59 03/17/25 14:15 0.5 MG Magnesium Sulfate 50 ml @ 0 mls/hr PROTOCOL IV 03/16/25 13:00 04/15/25 12:59 Metoclopramide HCl (regLAN 10MG IV) 10 mg TID PRN IVP VOMITING 03/17/25 14:00 04/16/25 13:59 Morphine Sulfate (morPHINE 4MG SYG) 2 mg Q6H PRN IVP SEVERE PAIN (7-10) 03/16/25 17:30 03/17/25 13:42 DC 03/17/25 08:05 2 MG Nitroglycerin (Nitrostat) 0.4 mg AD PRN SL CHEST PAIN 03/16/25 11:00 04/15/25 10:59 03/16/25 10:51 0.4 MG Ondansetron HCl (zoFRAN 4MG INJ) 4 mg Q6H PRN IVP NAUSEA/VOMITING 03/16/25 13:00 04/15/25 12:59 03/17/25 08:45 4 MG Pantoprazole Sodium (PROTonix 40MG INJ) 40 mg BID IVP 03/17/25 21:00 04/16/25 08:59 Pantoprazole Sodium (PROTonix 40MG INJ) 40 mg DAILY IVP 03/17/25 09:00 03/17/25 13:42 DC 03/17/25 08:04 40 MG Potassium Chloride 100 ml @ 100 mls/hr AD PRN IV POTASSIUM PROTOCOL 03/16/25 13:00 04/15/25 12:59 Potassium Chloride (K-Dur/Klor-Con 20meq) 20 meq AD PRN PO POTASSIUM PROTOCOL 03/16/25 13:00 04/15/25 12:59 03/17/25 13:53 20 MEQ Potassium Chloride (KCl 10% Elixir 20meq/15ml) 20 meq AD PRN PO POTASSIUM PROTOCOL 03/16/25 13:00 04/15/25 12:59 Thiamine HCl (Vitamin B-1) 100 mg Q24H IVP 03/16/25 13:00 04/15/25 12:59 03/17/25 13:50 100 MG DIAGNOSTICS / RADIOLOGY: [place] [address] IMAGING REPORT Signed PATIENT: CINDY PORTILLO MR#: [id number] : 2000 SEX: M AGE: 24 LOCATION: [facility] ORDER 1245 STATUS: ADM IN REPORT#: [id number] SERVICE 1233 REASON: abdominal pain, n/v x 3 days, diarrhea, hx of THC use ORDERING PHYSICIAN: GAVIN TREADWELL MD PROCEDURE: ABD PEL WO - CT ABDOMEN/PELVIS W/O CONTRAST CT ABDOMEN/PELVIS W/O CONTRAST REASON: abdominal pain, n/v x 3 days, diarrhea, hx of THC use COMPARISON: None. FINDINGS: Lung bases are clear. There are no focal liver lesions. There is mild grade 1 hepatic steatosis of the liver. There are normal-appearing kidneys.. Spleen and pancreas appear unremarkable. The gallbladder is surgically absent with clips in the gallbladder fossa.. Bowel loops appear unremarkable. This includes normal appearance of the appendix There is no evidence of free fluid or intraperitoneal air. There are no focal fluid collections. Aorta and retroperitoneum appear normal as do pelvic soft tissue structures. The anterior abdominal wall is intact. Osseous structures appear unremarkable. The prostate and several vesicles appears to be normal. The urinary bladder appears to be decompressed. IMPRESSION: 1. No acute process seen in the CT of abdomen and pelvis without intravenous contrast.. CT was performed with one or more following dose reduction techniques: automated exposure control, adjustment of the mA and kv according to patient's size, or use of a iterative reconstruction technique. 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, POA History of THC use disorder, POA Obesity, POA History of cholecystectomy, POA PLAN: Suspected Infectious gastroenteritis, POA * Patient NPO until nausea and vomiting improves * Patient GI PCR panel has been ordered * Continue patient on Rocephin and also on Dilaudid 0.5 mg for the abdominal pain * Metoclopramide added to the Zofran for nausea and vomiting * GI has been consulted who scheduled the patient for EGD on Wednesday Starvation ketosis, POA * Patient's blood ketone level is at 1.0 and urine ketones at 100 * Patient is NPO but on IV hydration with D5/NS and also getting thiamine Gastritis, POA * Patient is started on pantoprazole 40 mg IV b.i.d. * Patient is seen by Gastroenterology who advised patient to avoid spicy foods fried foods, acidic juices, caffeine, carbonated drinks, chocolate and foods that contain tomato and tomato sauces * Gastroenterology also scheduled the patient for an EGD tomorrow 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, POA * Patient is a chronic cannabis user with a history of 10 years, he uses it almo st every day * The nausea and vomiting could be caused by the cannabis use * GI emphasized the importance of him abstaining from smoking marijuana. Patient on GI prophylaxis on pantoprazole 40 mg IV b.i.d. We will request labs in am Further orders to follow depending on above results ATTESTATION BY PHYSICIAN I have seen and examined the patient. I reviewed the documentation, medical decision making, and treatment plan as noted by the resident provider above. I agree with the findings and plan of care. DAT DIAZ MD, ABHINAV MD Mar 17, 2025 17:43
[2025-03-18] VITALS (21 sets, daily range): BP systolic 103–152; BP diastolic 45–82; PULSE 0–78; RESP 15–22; TEMP 97.3–98.1; O2SAT 99
[2025-03-18 04:29] LABS: IMMATURE GRANULOCYTE ABSOLUTE 0.03 K/uL (0-1); NUCLEATED RED BLOOD CELLS 0.0 % (0.0-0.19); PLATELET COUNT (AUTO) 227 K/uL (130-400); RED BLOOD CELL COUNT(AUTO) 4.70 MIL/uL (4.50-6.20); RED CELL DISTRIBUTION WIDTH 12.4 % (11.0-15.5); WHITE BLOOD COUNT (AUTO) 9.0 K/uL (4.8-10.8)
[2025-03-18 04:49] LABS: ASPARTATE AMINOTRANSFERASE 26.0 U/L (10-37); CREATININE 1.1 mg/dL (0.5-1.3); GLOMERULAR FILTR. RATE CALC 95.0 mL/min (>90); GLUCOSE,RANDOM 93.0 mg/dL (70-105); SODIUM SERUM 141.0 mmol/L (136-145); TOTAL PROTEIN, SERUM 6.8 g/dL (6.0-8.3); UREA NITROGEN, BLOOD 6.0 mg/dL (7-18)
[2025-03-18] MEDS ORDERED: LIDOCAINE PF 100MG/5ML (2%) SYRINGE 5ML ONE (06:57)
--- NOTE | 2025-03-18 18:11 | PN ---
[facility] PROGRESS NOTE Date of Service: Mar 18, 2025 Time of Service: 17:59 SUBJECTIVE: Patient is a 24-year-old male with chronic THC use, obesity, presented to the ER for further evaluation of nonresolving, intractable nausea and vomiting ongoing for the past three days. This has been accompanied by [id number] epigastric abdominal pain worsened with vomiting. He has been also having loose stool about 6-7 episodes nonbloody. Reports that three days ago, he had barbecue for lunch, denies any sick contacts. Patient reports that he has been having intermittent episodes with abdominal pain for about a month which improves with taking warm showers. He has been using marijuana chronically for the past 10 years, last use of marijuana was about three days ago. He uses marijuana almost every day. Patient does report having previous history of cholecystectomy in 2021 as well. 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 He was discharged home on p.r.n. antiemetics with Zofran. Patient also reports having some chest discomfort since vomiting so frequently. Denies active chest pain currently. Chest x-ray showed no acute infiltrates. Patient has not been able to tolerate oral intake for the past two days due to continuous vomiting. Patient will be admitted under hospitalist service. We will start patient on IV fluids, IV thiamine supplementation, p.r.n. antiemetics and anti-reflux medication. We will start patient on broad-spectrum antibiotics due to concerns of infectious gastroenteritis. CT abdomen pelvis without contrast will be obt ained. Consultation with GI will be requested this admission as well. Patient was extensively counseled on quitting THC use which can increase risk of cyclical vomiting/ cannabis associated hyperemesis syndrome. Patient verbalized understanding. 03/17/25: Patient is seen and examined at bedside in room 329. Patient is still in pain which improved from the time of admission, the patient rated the pain 8/10 in the ER while today he rated it at a 4/10. Patient still continues to have nausea and vomiting. Metoclopramide 10 mg has been added for the nausea and vomiting and Dilaudid 0.5 mg has been also ordered for the pain. Given the pain patient's tender abdomen lipase has been ordered which which came back normal at 30. Patient's abdominal CT also came back normal. Patient also mentioned that he has acid reflux quite often and feels acid coming up to his throat when lying flat, patient is started on 40 mg IV Protonix b.i.d. GI examined the patient and scheduled him for a EGD on Wednesday. Patient continues to be on IV fluid. 03/18/2025: The patient is seen and examined at bedside. He appeared in excruciating pain so 2 doses of Dilaudid 0.5 mg were given which control the pain. He reports continued vomiting X5 today. EGD done today morning showed esophageal mucosal changes suspicious for eosinophilic esophagitis, erythematous mucosa in the stomach with normal duodenal bulb and 2nd portion of the duodenum. So esophagus and stomach biopsies were taken. We will monitor for clinical improvement and biopsy reports REVIEW OF SYSTEMS CONSTITUTIONAL: Denies fevers, chills, or night sweats. No unintentional weight loss reported. NEUROLOGICAL: Denies headache, motor weakness, sensory deficit, vertigo/spinning sensation, gait abnormalities, or tremors. ENT: No hearing loss, rhinitis, rhinorrhea, hoarseness, or sore throat. CARDIOVASCULAR: Denies any exertional angina, dyspnea on exertion, orthopnea, paroxysmal nocturnal dyspnea, palpitations PULMONARY: Denies any shortness of breath, cough, phlegm/sputum, hemoptysis, pleuritic chest pain. GASTROINTESTINAL: Nausea, vomiting, epigastric abdominal pain, 3 diarrhea episodes, gastric reflux GENITOURINARY: Denies frequency, urgency, nocturia, hematuria or incontinence. ENDOCRINOLOGIC: Denies polyuria, polydipsia, polyphagia or heat/cold intol erances. DERMATOLOGIC: Denies rashes or pruritus. PHYSICAL EXAM GENERAL APPEARANCE: The patient is awake, alert, and oriented, in pain NEUROLOGICAL: Cranial nerves II-XII grossly intact. Motor is 5/5 in bilateral upper and lower extremities proximal to distal. No sensory deficits. HEENT: Face is symmetric. Pupils are equal and reactive. Extraocular movements are intact. NECK: Supple. No JVD. No lymphadenopathy. CHEST: Normal chest expansion. No Telemetry. LUNGS: Absence of any rales, rhonchi or any wheezing. CARDIOVASCULAR: Regular. S1 and S2 normal. No appreciable rubs, murmurs or gallops. ABDOMEN: Soft, epigastric and right upper quadrant tenderness, and nondistended. There is no rebound, voluntary guarding, or rigidity. : Deferred. No Oglesby. EXTREMITIES: Non-edematous and not cyanotic. No clubbing. Good capillary refill. SKIN: No skin breakdown. Vital Signs (last 8hr) Date Time Temp Pulse Resp B/P (MAP) Pulse Ox O2 Delivery O2 Flow Rate FiO2 03/18/25 13:30 53 110/67 93 Room Air 03/18/25 12:30 51 111/62 97 Room Air 03/18/25 11:30 55 114/57 96 Room Air 03/18/25 10:30 0 119/61 96 Room Air LABS: Laboratory: Test 03/18/25 04:06 03/17/25 04:06 Range/Units White Blood Count 9.0 4.8-10.8 K/uL Red Blood Count 4.70 4.50-6.20 MIL/uL Hemoglobin 14.3 14.0-18.0 g/dL Hematocrit 40.7 L 42-54 % Mean Corpuscular Volume 86.6 79-99 fL Mean Corpuscular Hemoglobin 30.4 27.0-33.0 pg Mean Corpuscular Hemoglobin Concent 35.1 32.0-36.0 g/dL Red Cell Distribution Width 12.4 11.0-15.5 % Platelet Count 227 130-400 K/uL Mean Platelet Volume 9.6 7.5-10.5 fL Immature Granulocyte % (Auto) 0.3 0-1 % Neutrophils (%) (Auto) 47.8 40.0-77.0 % Lymphocytes (%) (Auto) 40.4 21.0-51.0 % Monocytes (%) (Auto) 9.0 3.0-13.0 % Eosinophils (%) (Auto) 1.8 0.0-8.0 % Basophils (%) (Auto) 0.7 0.0-5.0 % Neutrophils # (Auto) 4.3 1.8-7.7 K/uL Lymphocytes # (Auto) 3.6 1.0-4.8 K/uL Monocytes # (Auto) 0.8 0.1-1.0 K/uL Eosinophils # (Auto) 0.16 0.00-0.70 K/uL Basophils # (Auto) 0.06 0.00-0.20 K/uL Absolute Immature Granulocyte (auto 0.03 0-1 K/uL Nucleated Red Blood Cells 0.0 0.0-0.19 % Sodium Level 141 136-145 mmol/L Potassium Level 3.5 3.5-5.1 mmol/L Chloride Level 107 101-111 mmol/L Carbon Dioxide Level 26 21-32 mmol/L Blood Urea Nitrogen 6 L 7-18 mg/dL Creatinine 1.1 0.5-1.3 mg/dL Glomerular Filtration Rate Calc 95 >90 mL/min Random Glucose 93 70-105 mg/dL Total Calcium 8.0 L 8.5-10.1 mg/dL Total Bilirubin 0.7 0.2-1.0 mg/dL Aspartate Amino Transf (AST/SGOT) 26 10-37 U/L Alanine Aminotransferase (ALT/SGPT) 68 12-78 U/L Alkaline Phosphatase 56 50-136 U/L Total Protein 6.8 6.0-8.3 g/dL Albumin 3.8 3.5-5.0 g/dL Red Blood Cell Morphology See comments Magnesium Level 2.10 1.80-2.40 mg/dL Lipase 30 16-77 U/L Current Medications Medications (Trade) Dose Ordered Sig/Rissa Route PRN Reason Start Time Stop Time Status Last Admin Dose Admin Acetaminophen (TYLenol 325MG TAB) 650 mg Q6H PRN PO MILD PAIN (1-3) 03/16/25 13:00 04/15/25 12:59 Ceftriaxone Sodium (ROCEphine 1G INJ) 1 gm Q24H IVPB 03/16/25 13:00 03/26/25 12:59 03/18/25 13:44 1 GM Dextrose/Sodium Chloride 1,000 ml @ 100 mls/hr Q10H IV 03/16/25 13:00 04/15/25 12:59 03/18/25 05:20 100 MLS/HR Diazepam (VALium 5 MG/ML 2 ML SYG) 2.5 mg Q12H PRN IV ANXIETY 03/16/25 13:00 03/23/25 12:59 Haloperidol Lactate (Haldol Inj) 2.5 mg Q8H PRN IM ANXIETY/AGITATION 03/16/25 09:30 03/16/25 13:46 DC 03/16/25 09:21 2.5 MG Hydromorphone HCl (DiLAUDid 0.5MG INJ) 0.5 mg Q4H PRN IVP SEVERE PAIN (7-10) 03/17/25 14:00 03/22/25 13:59 03/18/25 09:25 0.5 MG Magnesium Sulfate 50 ml @ 0 mls/hr PROTOCOL IV 03/16/25 13:00 04/15/25 12:59 Metoclopramide HCl (regLAN 10MG IV) 10 mg TID PRN IVP VOMITING 03/17/25 14:00 04/16/25 13:59 03/18/25 08:18 10 MG Morphine Sulfate (morPHINE 4MG SYG) 2 mg Q6H PRN IVP SEVERE PAIN (7-10) 03/16/25 17:30 03/17/25 13:42 DC 03/17/25 08:05 2 MG Nitroglycerin (Nitrostat) 0.4 mg AD PRN SL CHEST PAIN 03/16/25 11:00 04/15/25 10:59 03/16/25 10:51 0.4 MG Ondansetron HCl (zoFRAN 4MG INJ) 4 mg Q6H PRN IVP NAUSEA/VOMITING 03/16/25 13:00 04/15/25 12:59 03/18/25 10:43 4 MG Pantoprazole Sodium (PROTonix 40MG INJ) 40 mg BID IVP 03/17/25 21:00 04/16/25 08:59 03/18/25 08:10 40 MG Pantoprazole Sodium (PROTonix 40MG INJ) 40 mg DAILY IVP 03/17/25 09:00 03/17/25 13:42 DC 03/17/25 08:04 40 MG Potassium Chloride 100 ml @ 100 mls/hr AD PRN IV POTASSIUM PROTOCOL 03/16/25 13:00 04/15/25 12:59 Potassium Chloride (K-Dur/Klor-Con 20meq) 20 meq AD PRN PO POTASSIUM PROTOCOL 03/16/25 13:00 04/15/25 12:59 03/18/25 08:10 20 MEQ Potassium Chloride (KCl 10% Elixir 20meq/15ml) 20 meq AD PRN PO POTASSIUM PROTOCOL 03/16/25 13:00 04/15/25 12:59 Thiamine HCl (Vitamin B-1) 100 mg Q24H IVP 03/16/25 13:00 04/15/25 12:59 03/18/25 13:44 100 MG DIAGNOSTICS / RADIOLOGY: [ ] ASSESSMENT: Intractable nausea and vomiting, POA Suspected Infectious gastroenteritis, POA Gastritis, POA Significant dehydration, POA Starvation ketosis, POA Hypokalemia, POA Hypovolemic hyponatremia, POA 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, POA History of THC use disorder, POA Obesity, POA History of cholecystectomy, POA PLAN: Suspected Infectious gastroenteritis, POA * Patient on full liquids until nausea and vomiting improves * stool GI PCR panel has been ordered and is pending * Continue patient on Rocephin and also on Dilaudid 0.5 mg for the abdominal pain * Metoclopramide added to the Zofran for nausea and vomiting * EGD done today which showed esophageal mucosal changes suspicious for eosinophilic esophagitis - biopsied, erythematous mucosa in the stomach- biopsied, normal duodenal bulb and 2nd portion of the duodenum Starvation ketosis, POA * Patient's blood ketone level is at 1.0 and urine ketones at 100 * Patient is advanced to full liquid diet and also getting thiamine Gastritis, POA * Patient will be continued on pantoprazole 40 mg IV b.i.d. 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 Patient on GI prophylaxis on pantoprazole 40 mg IV b.i.d. We will request labs in am Further orders to follow depending on above results ATTESTATION BY PHYSICIAN I have seen and examined the patient. I reviewed the documentation, medical decision making, and treatment plan as noted by the resident provider above. I agree with the findings and plan of care. Issa Carter MD, BHAVANI MD Mar 18, 2025 18:11
[2025-03-19] VITALS (7 sets, daily range): BP systolic 118–129; BP diastolic 58–80; PULSE 51–72; RESP 18–20; TEMP 97.7–98.7; O2SAT 97–98
[2025-03-19 04:41] LABS: NUCLEATED RED BLOOD CELLS 0.0 % (0.0-0.19); PLATELET COUNT (AUTO) 257.0 K/uL (130-400); RED BLOOD CELL COUNT(AUTO) 4.85 MIL/uL (4.50-6.20); RED CELL DISTRIBUTION WIDTH 12.2 % (11.0-15.5); WHITE BLOOD COUNT (AUTO) 9.7 K/uL (4.8-10.8)
[2025-03-19 05:05] LABS: CREATININE 1.3 mg/dL (0.5-1.3); GLOMERULAR FILTR. RATE CALC 78.0 mL/min (>90); GLUCOSE,RANDOM 94.0 mg/dL (70-105); SODIUM SERUM 142.0 mmol/L (136-145); UREA NITROGEN, BLOOD 6.0 mg/dL (7-18)
[2025-03-19] MEDS: PoTASSium chl 10% ELIXIR 20MEQ 20 MEQ/15 ML UDCUP PO PRN (08:15)
--- NOTE | 2025-03-19 14:16 | PN ---
[facility] PROGRESS NOTE Date of Service: Mar 19, 2025 Time of Service: 13:09 SUBJECTIVE: Patient is a 24-year-old male with chronic THC use, obesity, presented to the ER for further evaluation of nonresolving, intractable nausea and vomiting ongoing for the past three days. This has been accompanied by [id number] epigastric abdominal pain worsened with vomiting. He has been also having loose stool about 6-7 episodes nonbloody. Reports that three days ago, he had barbecue for lunch, denies any sick contacts. Patient reports that he has been having intermittent episodes with abdominal pain for about a month which improves with taking warm showers. He has been using marijuana chronically for the past 10 years, last use of marijuana was about three days ago. He uses marijuana almost every day. Patient does report having previous history of cholecystectomy in 2021 as well. 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 He was discharged home on p.r.n. antiemetics with Zofran. Patient also reports having some chest discomfort since vomiting so frequently. Denies active chest pain currently. Chest x-ray showed no acute infiltrates. Patient has not been able to tolerate oral intake for the past two days due to continuous vomiting. Patient will be admitted under hospitalist service. We will start patient on IV fluids, IV thiamine supplementation, p.r.n. antiemetics and anti-reflux medication. We will start patient on broad-spectrum antibiotics due to concerns of infectious gastroenteritis. CT abdomen pelvis without contrast will be obt ained. Consultation with GI will be requested this admission as well. Patient was extensively counseled on quitting THC use which can increase risk of cyclical vomiting/ cannabis associated hyperemesis syndrome. Patient verbalized understanding. 03/17/25: Patient is seen and examined at bedside in room 329. Patient is still in pain which improved from the time of admission, the patient rated the pain 8/10 in the ER while today he rated it at a 4/10. Patient still continues to have nausea and vomiting. Metoclopramide 10 mg has been added for the nausea and vomiting and Dilaudid 0.5 mg has been also ordered for the pain. Given the pain patient's tender abdomen lipase has been ordered which which came back normal at 30. Patient's abdominal CT also came back normal. Patient also mentioned that he has acid reflux quite often and feels acid coming up to his throat when lying flat, patient is started on 40 mg IV Protonix b.i.d. GI examined the patient and scheduled him for a EGD on Wednesday. Patient continues to be on IV fluid. 03/18/2025: The patient is seen and examined at bedside. He appeared in excruciating pain so 2 doses of Dilaudid 0.5 mg were given which control the pain. He reports continued vomiting X5 today. EGD done today morning showed esophageal mucosal changes suspicious for eosinophilic esophagitis, erythematous mucosa in the stomach with normal duodenal bulb and 2nd portion of the duodenum. So esophagus and stomach biopsies were taken. We will monitor for clinical improvement and biopsy reports 03/19/2025: The patient was evaluated bedside this morning. He is AAO x3. he states that his nausea and vomiting has improved and is tolerating full liquid diet. Remarkable lab is for creatinine 1.3. EGD revealed the features of eosinophilic esophagitis and gastritis grossly, biopsy taken. He is on Protonix 40 mg b.i.d. and Rocephin 1g daily, DNS 100 mL/hour and PRN medications for vomiting. Pending GI PCR, celiac disease serology. For his raised creatinine and urine positive for protein, we will get urine protein creatinine ratio, ultrasound kidney and urine electrolytes. We will consult Nephrology for their recommendations. GI on the board. Rest of the plan as discussed below REVIEW OF SYSTEMS CONSTITUTIONAL: Denies fevers, chills, or night sweats. No unintentional weight loss reported. NEUROLOGICAL: Denies headache, motor weakness, sensory deficit, vertigo/spinning sensation, gait abnormalities, or tremors. ENT: No hearing loss, rhinitis, rhinorrhea, hoarseness, or sore throat. CARDIOVASCULAR: Denies any exertional angina, dyspnea on exertion, orthopnea, paroxysmal nocturnal dyspnea, palpitations PULMONARY: Denies any shortness of breath, cough, phlegm/sputum, hemoptysis, pleuritic chest pain. GASTROINTESTINAL: Nausea, vomiting, epigastric abdominal pain, 3 diarrhea episodes, gastric reflux GENITOURINARY: Denies frequency, urgency, nocturia, hematuria or incontinence. ENDOCRINOLOGIC: Denies polyuria, polydipsia, polyphagia or heat/cold intolerances. DERMATOLOGIC: Denies rashes or pruritus. PHYSICAL EXAM GENERAL APPEARANCE: The patient is awake, alert, and oriented, in pain NEUROLOGICAL: Cranial nerves II-XII grossly intact. Motor is 5/5 in bilateral upper and lower extremities proximal to distal. No sensory deficits. HEENT: Face is symmetric. Pupils are equal and reactive. Extraocular movements are intact. NECK: Supple. No JVD. No lymphadenopathy. CHEST: Normal chest expansion. No Telemetry. LUNGS: Absence of any rales, rhonchi or any wheezing. CARDIOVASCULAR: Regular. S1 and S2 normal. No appreciable rubs, murmurs or gallops. ABDOMEN: Soft, epigastric and right upper quadrant tenderness, and nondistended. There is no rebound, voluntary guarding, or rigidity. : Deferred. No [place]. EXTREMITIES: Non-edematous and not cyanotic. No clubbing. Good capillary refill. SKIN: No skin breakdown. Vital Signs (last 8hr) Date Time Temp Pulse Resp B/P (MAP) Pulse Ox O2 Delivery O2 Flow Rate FiO2 03/19/25 11:19 98.1 66 18 128/65 95 Room Air 03/19/25 08:00 97.7 57 18 118/68 98 Room Air LABS: Laboratory: Test 03/19/25 07:29 03/19/25 04:22 03/18/25 04:06 Range/Units Whole Blood Ketones Quantitative 0.3 0.0-0.6 mmol/L White Blood Count 9.7 4.8-10.8 K/uL Red Blood Count 4.85 4.50-6.20 MIL/uL Hemoglobin 14.8 14.0-18.0 g/dL Hematocrit 41.1 L 42-54 % Mean Corpuscular Volume 84.7 79-99 fL Mean Corpuscular Hemoglobin 30.5 27.0-33.0 pg Mean Corpuscular Hemoglobin Concent 36.0 32.0-36.0 g/dL Red Cell Distribution Width 12.2 11.0-15.5 % Platelet Count 257 130-400 K/uL Mean Platelet Volume 9.8 7.5-10.5 fL Nucleated Red Blood Cells 0.0 0.0-0.19 % Sodium Level 142 136-145 mmol/L Potassium Level 3.6 3.5-5.1 mmol/L Chloride Level 105 101-111 mmol/L Carbon Dioxide Level 27 21-32 mmol/L Blood Urea Nitrogen 6 L 7-18 mg/dL Creatinine 1.3 0.5-1.3 mg/dL Glomerular Filtration Rate Calc 78 >90 mL/min Random Glucose 94 70-105 mg/dL Total Calcium 8.4 L 8.5-10.1 mg/dL Magnesium Level 2.20 1.80-2.40 mg/dL Immature Granulocyte % (Auto) 0.3 0-1 % Neutrophils (%) (Auto) 47.8 40.0-77.0 % Lymphocytes (%) (Auto) 40.4 21.0-51.0 % Monocytes (%) (Auto) 9.0 3.0-13.0 % Eosinophils (%) (Auto) 1.8 0.0-8.0 % Basophils (%) (Auto) 0.7 0.0-5.0 % Neutrophils # (Auto) 4.3 1.8-7.7 K/uL Lymphocytes # (Auto) 3.6 1.0-4.8 K/uL Monocytes # (Auto) 0.8 0.1-1.0 K/uL Eosinophils # (Auto) 0.16 0.00-0.70 K/uL Basophils # (Auto) 0.06 0.00-0.20 K/uL Absolute Immature Granulocyte (auto 0.03 0-1 K/uL Total Bilirubin 0.7 0.2-1.0 mg/dL Aspartate Amino Transf (AST/SGOT) 26 10-37 U/L Alanine Aminotransferase (ALT/SGPT) 68 12-78 U/L Alkaline Phosphatase 56 50-136 U/L Total Protein 6.8 6.0-8.3 g/dL Albumin 3.8 3.5-5.0 g/dL Current Medications Medications (Trade) Dose Ordered Sig/Rissa Route PRN Reason Start Time Stop Time Status Last Admin Dose Admin Acetaminophen (TYLenol 325MG TAB) 650 mg Q6H PRN PO MILD PAIN (1-3) 03/16/25 13:00 04/15/25 12:59 Ceftriaxone Sodium (ROCEphine 1G INJ) 1 gm Q24H IVPB 03/16/25 13:00 03/26/25 12:59 03/18/25 13:44 1 GM Dextrose/Sodium Chloride 1,000 ml @ 100 mls/hr Q10H IV 03/16/25 13:00 04/15/25 12:59 03/19/25 03:59 100 MLS/HR Diazepam (VALium 5 MG/ML 2 ML SYG) 2.5 mg Q12H PRN IV ANXIETY 03/16/25 13:00 03/23/25 12:59 Haloperidol Lactate (Haldol Inj) 2.5 mg Q8H PRN IM ANXIETY/AGITATION 03/16/25 09:30 03/16/25 13:46 DC 03/16/25 09:21 2.5 MG Hydromorphone HCl (DiLAUDid 0.5MG INJ) 0.5 mg Q4H PRN IVP SEVERE PAIN (7-10) 03/17/25 14:00 03/22/25 13:59 03/18/25 09:25 0.5 MG Magnesium Sulfate 50 ml @ 0 mls/hr PROTOCOL IV 03/16/25 13:00 04/15/25 12:59 Metoclopramide HCl (regLAN 10MG IV) 10 mg TID PRN IVP VOMITING 03/17/25 14:00 04/16/25 13:59 03/18/25 08:18 10 MG Morphine Sulfate (morPHINE 4MG SYG) 2 mg Q6H PRN IVP SEVERE PAIN (7-10) 03/16/25 17:30 03/17/25 13:42 DC 03/17/25 08:05 2 MG Nitroglycerin (Nitrostat) 0.4 mg AD PRN SL CHEST PAIN 03/16/25 11:00 04/15/25 10:59 03/16/25 10:51 0.4 MG Ondansetron HCl (zoFRAN 4MG INJ) 4 mg Q6H PRN IVP NAUSEA/VOMITING 03/16/25 13:00 04/15/25 12:59 03/19/25 10:23 4 MG Pantoprazole Sodium (PROTonix 40MG INJ) 40 mg BID IVP 03/17/25 21:00 04/16/25 08:59 03/19/25 08:14 40 MG Pantoprazole Sodium (PROTonix 40MG INJ) 40 mg DAILY IVP 03/17/25 09:00 03/17/25 13:42 DC 03/17/25 08:04 40 MG Potassium Chloride 100 ml @ 100 mls/hr AD PRN IV POTASSIUM PROTOCOL 03/16/25 13:00 04/15/25 12:59 Potassium Chloride (K-Dur/Klor-Con 20meq) 20 meq AD PRN PO POTASSIUM PROTOCOL 03/16/25 13:00 04/15/25 12:59 03/18/25 08:10 20 MEQ Potassium Chloride (KCl 10% Elixir 20meq/15ml) 20 meq AD PRN PO POTASSIUM PROTOCOL 03/16/25 13:00 04/15/25 12:59 03/19/25 08:15 20 MEQ Thiamine HCl (Vitamin B-1) 100 mg Q24H IVP 03/16/25 13:00 04/15/25 12:59 03/18/25 13:44 100 MG DIAGNOSTICS / RADIOLOGY: [ ] ASSESSMENT: Intractable nausea and vomiting, POA Suspected Infectious gastroenteritis, POA PANCHO versus CKD, POA Gastritis, POA Significant dehydration, POA Starvation ketosis, POA Hypokalemia, POA Hypovolemic hyponatremia, POA 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, POA History of THC use disorder, POA Obesity, POA History of cholecystectomy, POA PLAN: Suspected Infectious gastroenteritis, POA * Patient started on soft GI diet * stool GI PCR panel has been ordered and is pending * Continue patient on Rocephin and also on Dilaudid 0.5 mg for the abdominal pain * Metoclopramide added to the Zofran for nausea and vomiting * EGD showed esophageal mucosal changes suspicious for eosinophilic esophagitis - biopsied, erythematous mucosa in the stomach-biopsied, normal duodenal bulb and 2nd portion of the duodenum * We will get celiac disease serology PANCHO versus CKD, POA * Presented with creatinine 1.3, prior records shows creatinine in the range of 1.1-1.5. Creatinine this morning 1.3 * Urine positive for protein 50 mg/dL * We will get urine protein creatinine ratio, and urine electrolytes * Consult nephrology for the recommendations Starvation ketosis, POA(resolved) * Patient's blood ketone level is at 1.0 and urine ketones at 100 * Patient is advanced to full liquid diet and also getting thiamine * Concern of eosinophilic esophagitis Gastritis, POA * Patient will be continued on pantoprazole 40 mg IV b.i.d. * Patient is seen by Gastroenterology who advised patient to avoid spicy foods fried foods, acidic juices, caffeine, carbonated drinks, chocolate and foods that contain tomato and tomato sauces * EGD showed esophageal mucosal changes suspicious for eosinophilic esophagitis - biopsied, erythematous mucosa in the stomach-biopsied, normal duodenal bulb and 2nd portion of the duodenum * We will wait for biopsy report. 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 Patient on GI prophylaxis on pantoprazole 40 mg IV b.i.d. We will request labs in am Further orders to follow depending on above results ATTESTATION BY PHYSICIAN I have seen and examined the patient. I reviewed the documentation, medical decision making, and treatment plan as noted by the mid-level provider above. I agree with the findings and plan of care. DAT DIAZ MD, SUNIL MD Mar 19, 2025 14:16
--- NOTE | 2025-03-19 16:30 | PN ---
GASTROENTEROLOGY PROGRESS NOTE Date of Visit: Mar 19, 2025 Time of Visit: 16:27 Events / Notes: Patient underwent EGD on 03/18/2025, who was found to have esophageal mucosal changes suspicious for eosinophilic esophagitis, erythematous mucosa in the stomach, and normal duodenal bulb and 2nd portion of duodenum. Results given to patient and recommendations for GES. Patient agreed to proceed with exam. Emp hasize importance patient abstain from Marijuana use and avoidance of irritant foods (greasy, spicy, caffeine, carbonated beverages, foods with tomatoes, citrus fruits). Instructed to take PPI medication bid and f/u at TDS in 1 week from discharge. Informed he will need reevaluation with EGD in about 8-12 weeks. Patient verbalized understanding and agreement. ] Review of Systems: CONSTITUTIONAL: No malaise or change in sensation of wellbeing. ENMT: No rhinorrhea, otorrhea, sinus pain, ear ache. CARDIOVASCULAR: No angina, palpitations, orthopnea or paroxysmal dyspnea. RESPIRATORY: No SOB. GASTROINTESTINAL: No abdominal pain, nausea, vomiting, diarrhea, hematemesis, melena or change in the patient's habitual bowel movements consistency/number. GENITOURINARY: No dysuria, hematuria or change in bladder continence. MUSCULOSKELETAL: No new muscle pain or decrease in muscular strength. No new joint swelling, redness or tenderness. SKIN: No new rash. Physical Exam: GEN: Awake, alert, oriented in person, time and place, and in no acute distress sitting in bed. HEENT: Oral pharyngeal mucosa is moist and within normal limits. CHEST: Lung auscultation revealed normal breath sounds bilaterally. CARDIAC: Heart sounds are regular. ABD: Soft, tender to epigastric region. Normal bowel sounds. EXT: No cyanosis or clubbing. No edema. SKIN: Intact. No rashes. JOINTS: No evidence of synovitis or acute arthritis. NEURO: Alert and oriented to name, place and person. No focal motor deficits. Normal speech. Strength is normal. Vital Signs (last 8hr) Date Time Temp Pulse Resp B/P (MAP) Pulse Ox O2 Delivery O2 Flow Rate FiO2 03/19/25 11:19 98.1 66 18 128/65 95 Room Air Laboratory: [ ] Laboratory: Test 03/19/25 07:29 03/19/25 04:22 03/18/25 04:06 Range/Units Whole Blood Ketones Quantitative 0.3 0.0-0.6 mmol/L White Blood Count 9.7 4.8-10.8 K/uL Red Blood Count 4.85 4.50-6.20 MIL/uL Hemoglobin 14.8 14.0-18.0 g/dL Hematocrit 41.1 L 42-54 % Mean Corpuscular Volume 84.7 79-99 fL Mean Corpuscular Hemoglobin 30.5 27.0-33.0 pg Mean Corpuscular Hemoglobin Concent 36.0 32.0-36.0 g/dL Red Cell Distribution Width 12.2 11.0-15.5 % Platelet Count 257 130-400 K/uL Mean Platelet Volume 9.8 7.5-10.5 fL Nucleated Red Blood Cells 0.0 0.0-0.19 % Sodium Level 142 136-145 mmol/L Potassium Level 3.6 3.5-5.1 mmol/L Chloride Level 105 101-111 mmol/L Carbon Dioxide Level 27 21-32 mmol/L Blood Urea Nitrogen 6 L 7-18 mg/dL Creatinine 1.3 0.5-1.3 mg/dL Glomerular Filtration Rate Calc 78 >90 mL/min Random Glucose 94 70-105 mg/dL Total Calcium 8.4 L 8.5-10.1 mg/dL Magnesium Level 2.20 1.80-2.40 mg/dL Immature Granulocyte % (Auto) 0.3 0-1 % Neutrophils (%) (Auto) 47.8 40.0-77.0 % Lymphocytes (%) (Auto) 40.4 21.0-51.0 % Monocytes (%) (Auto) 9.0 3.0-13.0 % Eosinophils (%) (Auto) 1.8 0.0-8.0 % Basophils (%) (Auto) 0.7 0.0-5.0 % Neutrophils # (Auto) 4.3 1.8-7.7 K/uL Lymphocytes # (Auto) 3.6 1.0-4.8 K/uL Monocytes # (Auto) 0.8 0.1-1.0 K/uL Eosinophils # (Auto) 0.16 0.00-0.70 K/uL Basophils # (Auto) 0.06 0.00-0.20 K/uL Absolute Immature Granulocyte (auto 0.03 0-1 K/uL Total Bilirubin 0.7 0.2-1.0 mg/dL Aspartate Amino Transf (AST/SGOT) 26 10-37 U/L Alanine Aminotransferase (ALT/SGPT) 68 12-78 U/L Alkaline Phosphatase 56 50-136 U/L Total Protein 6.8 6.0-8.3 g/dL Albumin 3.8 3.5-5.0 g/dL Current Medications Medications (Trade) Dose Ordered Sig/Rissa Route PRN Reason Start Time Stop Time Status Last Admin Dose Admin Acetaminophen (TYLenol 325MG TAB) 650 mg Q6H PRN PO MILD PAIN (1-3) 03/16/25 13:00 04/15/25 12:59 Ceftriaxone Sodium (ROCEphine 1G INJ) 1 gm Q24H IVPB 03/16/25 13:00 03/26/25 12:59 03/19/25 14:02 1 GM Dextrose/Sodium Chloride 1,000 ml @ 100 mls/hr Q10H IV 03/16/25 13:00 04/15/25 12:59 03/19/25 03:59 100 MLS/HR Diazepam (VALium 5 MG/ML 2 ML SYG) 2.5 mg Q12H PRN IV ANXIETY 03/16/25 13:00 03/23/25 12:59 Haloperidol Lactate (Haldol Inj) 2.5 mg Q8H PRN IM ANXIETY/AGITATION 03/16/25 09:30 03/16/25 13:46 DC 03/16/25 09:21 2.5 MG Hydromorphone HCl (DiLAUDid 0.5MG INJ) 0.5 mg Q4H PRN IVP SEVERE PAIN (7-10) 03/17/25 14:00 03/22/25 13:59 03/19/25 14:32 0.5 MG Magnesium Sulfate 50 ml @ 0 mls/hr PROTOCOL IV 03/16/25 13:00 04/15/25 12:59 Metoclopramide HCl (regLAN 10MG IV) 10 mg TID PRN IVP VOMITING 03/17/25 14:00 04/16/25 13:59 03/18/25 08:18 10 MG Morphine Sulfate (morPHINE 4MG SYG) 2 mg Q6H PRN IVP SEVERE PAIN (7-10) 03/16/25 17:30 03/17/25 13:42 DC 03/17/25 08:05 2 MG Nitroglycerin (Nitrostat) 0.4 mg AD PRN SL CHEST PAIN 03/16/25 11:00 04/15/25 10:59 03/16/25 10:51 0.4 MG Ondansetron HCl (zoFRAN 4MG INJ) 4 mg Q6H PRN IVP NAUSEA/VOMITING 03/16/25 13:00 04/15/25 12:59 03/19/25 10:23 4 MG Pantoprazole Sodium (PROTonix 40MG INJ) 40 mg BID IVP 03/17/25 21:00 04/16/25 08:59 03/19/25 08:14 40 MG Pantoprazole Sodium (PROTonix 40MG INJ) 40 mg DAILY IVP 03/17/25 09:00 03/17/25 13:42 DC 03/17/25 08:04 40 MG Potassium Chloride 100 ml @ 50 mls/hr AD PRN IV POTASSIUM PROTOCOL 03/19/25 13:30 04/18/25 13:29 Potassium Chloride 100 ml @ 100 mls/hr AD PRN IV POTASSIUM PROTOCOL 03/16/25 13:00 03/19/25 13:23 DC Potassium Chloride (K-Dur/Klor-Con 20meq) 20 meq AD PRN PO POTASSIUM PROTOCOL 03/16/25 13:00 03/19/25 13:23 DC 03/18/25 08:10 20 MEQ Potassium Chloride (KCl 10% Elixir 20meq/15ml) 20 meq AD PRN PO POTASSIUM PROTOCOL 03/16/25 13:00 03/19/25 13:23 DC 03/19/25 08:15 20 MEQ Thiamine HCl (Vitamin B-1) 100 mg Q24H IVP 03/16/25 13:00 04/15/25 12:59 03/19/25 14:02 100 MG Diagnostics / Radiology: [COPY/PASTE HERE IF NO REPORTS PLEASE DELETE SECTION] Assessment: [ Abdominal pain Nausea and vomiting Marijuana use Concern for eosinophilic esophagitis Gastritis] Plan: Case discussed with Dr. Carter [ Clear fluids today and advance as tolerated Protonix 40mg po daily Carafate suspension 1gram po QID Plan for GES in am to exclude any additional etiologies for nausea and vomiting Cannabis Abstinence is recommended Please call with questions, concerns, and change in clinical status. Thank you for this consult. ] EDGARD JASMINE NP Mar 19, 2025 16:30
[2025-03-19 17:11] LABS: C DIFFICILE TOXIN A/B Not Detected (Not Detected); ENTEROAGGREGATIVE ECOLI Not Detected (Not Detected); GIARDIA LAMBLIA Not Detected (Not Detected); PLESIOMONAS SHIGELOIDES Not Detected (Not Detected); SAPOVIRUS Not Detected (Not Detected); SHIGELLA/ENTEROINVASIVE E COLI Not Detected (Not Detected); VIBRIO Not Detected (Not Detected); VIBRIO CHOLERAE Not Detected (Not Detected)
[2025-03-19] MEDS: SUCRALFATE 1 GM/10 ML PO SCH (18:34)
[2025-03-20 00:12] VITALS: BP 129/73; PULSE 63; RESP 18; TEMP 98.9
[2025-03-20 04:15] VITALS: BP 116/57; PULSE 52; RESP 18; TEMP 97.5
[2025-03-20 04:31] LABS: IMMATURE GRANULOCYTE ABSOLUTE 0.04 K/uL (0-1); NUCLEATED RED BLOOD CELLS 0.0 % (0.0-0.19); PLATELET COUNT (AUTO) 251 K/uL (130-400); RED BLOOD CELL COUNT(AUTO) 4.84 MIL/uL (4.50-6.20); RED CELL DISTRIBUTION WIDTH 12.4 % (11.0-15.5); WHITE BLOOD COUNT (AUTO) 10.0 K/uL (4.8-10.8)
[2025-03-20 04:37] LABS: CREATININE 1.2 mg/dL (0.5-1.3); GLOMERULAR FILTR. RATE CALC 86.0 mL/min (>90); GLUCOSE,RANDOM 94.0 mg/dL (70-105); SODIUM SERUM 142.0 mmol/L (136-145); UREA NITROGEN, BLOOD 7.0 mg/dL (7-18)
--- NOTE | 2025-03-20 06:43 | HMCIMG ---
EXAMINATION: ULTRASOUND OF THE RETROPERITONEUM. CLINICAL HISTORY: CKD. COMPARISON: CT abdomen and pelvis without contrast dated 03/16/2025. TECHNIQUE: Real-time grayscale ultrasound images of the kidneys. FINDINGS: The kidneys are normal in caliber, the right kidney measures 10.8 x 5.1 x 6.0 cm and the left kidney measures 10.8 x 5.5 x 5.3 cm in its craniocaudal, AP, and transverse dimensions respectively. There is normal renal cortical thickness, and cortical echogenicity. There is no renal calculus or hydronephrosis. The urinary bladder is partially distended with normal wall thickness (0.26 cm). There are no calculi in the urinary bladder. Pre-void volume is 55 cc and post-void volume is not assessed. Incidentally, there is fatty liver. IMPRESSION: No significant abnormality in the retroperitoneum. Incidentally noted, hepatic steatosis. /[place]
[2025-03-20 08:00] VITALS: BP 133/79; PULSE 85; RESP 18; TEMP 97.7; O2SAT 97
--- NOTE | 2025-03-20 16:35 | PN ---
[facility] PROGRESS NOTE Date of Service: Mar 20, 2025 Time of Service: 16:18 SUBJECTIVE: Patient is a 24-year-old male with chronic THC use, obesity, presented to the ER for further evaluation of nonresolving, intractable nausea and vomiting ongoing for the past three days. This has been accompanied by [id number] epigastric abdominal pain worsened with vomiting. He has been also having loose stool about 6-7 episodes nonbloody. Reports that three days ago, he had barbecue for lunch, denies any sick contacts. Patient reports that he has been having intermittent episodes with abdominal pain for about a month which improves with taking warm showers. He has been using marijuana chronically for the past 10 years, last use of marijuana was about three days ago. He uses marijuana almost every day. Patient does report having previous history of cholecystectomy in 2021 as well. 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 He was discharged home on p.r.n. antiemetics with Zofran. Patient also reports having some chest discomfort since vomiting so frequently. Denies active chest pain currently. Chest x-ray showed no acute infiltrates. Patient has not been able to tolerate oral intake for the past two days due to continuous vomiting. Patient will be admitted under hospitalist service. We will start patient on IV fluids, IV thiamine supplementation, p.r.n. antiemetics and anti-reflux medication. We will start patient on broad-spectrum antibiotics due to concerns of infectious gastroenteritis. CT abdomen pelvis without contrast will be obt ained. Consultation with GI will be requested this admission as well. Patient was extensively counseled on quitting THC use which can increase risk of cyclical vomiting/ cannabis associated hyperemesis syndrome. Patient verbalized understanding. 03/17/2025 Patient is seen and examined at bedside in room 329. Patient is still in pain which improved from the time of admission, the patient rated the pain 8/10 in the ER while today he rated it at a 4/10. Patient still continues to have nausea and vomiting. Metoclopramide 10 mg has been added for the nausea and vomiting and Dilaudid 0.5 mg has been also ordered for the pain. Given the pain patient's tender abdomen lipase has been ordered which which came back normal at 30. Patient's abdominal CT also came back normal. Patient also mentioned that he has acid reflux quite often and feels acid coming up to his throat when lying flat, patient is started on 40 mg IV Protonix b.i.d. GI examined the patient and scheduled him for a EGD on Wednesday. Patient continues to be on IV fluid. 03/18/2025: The patient is seen and examined at bedside. He appeared in excruciating pain so 2 doses of Dilaudid 0.5 mg were given which control the pain. He reports continued vomiting X5 today. EGD done today morning showed esophageal mucosal changes suspicious for eosinophilic esophagitis, erythematous mucosa in the stomach with normal duodenal bulb and 2nd portion of the duodenum. So esophagus and stomach biopsies were taken. We will monitor for clinical improvement and biopsy reports 03/19/2025: The patient was evaluated bedside this morning. He is AAO x3. he states that his nausea and vomiting has improved and is tolerating full liquid diet. Remarkable lab is for creatinine 1.3. EGD revealed the features of eosinophilic esophagitis and gastritis grossly, biopsy taken. He is on Protonix 40 mg b.i.d. and Rocephin 1g daily, DNS 100 mL/hour and PRN medications for vomiting. Pending GI PCR, celiac disease serology. For his raised creatinine and urine positive for protein, we will get urine protein creatinine ratio, ultrasound kidney and urine electrolytes. We will consult Nephrology for their recommendations. GI on the board. Rest of the plan as discussed below 03/20/2025: He was evaluated at the bedside this morning. He is AAO x3. He complained of pain in right upper quadrant .Remarkable lab is for creatinine 1.2. He is on pantoprazole, Zofran, metoclopramide, thiamine and Rocephin. GI recommended gastric emptying scan which is scheduled today. GI PCR panel was negative. For the abdominal pain, CT abdomen pelvis has been requested. Ultrasound of kidney was unremarkable for abnormal echogenicity and abnormal size. We will follow GI recommendations. Rest of the plan as discussed below. REVIEW OF SYSTEMS CONSTITUTIONAL: Denies fevers, chills, or night sweats. No unintentional weight loss reported. NEUROLOGICAL: Denies headache, motor weakness, sensory deficit, vertigo/spinning sensation, gait abnormalities, or tremors. ENT: No hearing loss, rhinitis, rhinorrhea, hoarseness, or sore throat. CARDIOVASCULAR: Denies any exertional angina, dyspnea on exertion, orthopnea, paroxysmal nocturnal dyspnea, palpitations PULMONARY: Denies any shortness of breath, cough, phlegm/sputum, hemoptysis, pleuritic chest pain. GASTROINTESTINAL: Nausea, vomiting, epigastric abdominal pain, 3 diarrhea episodes, gastric reflux GENITOURINARY: Denies frequency, urgency, nocturia, hematuria or incontinence. ENDOCRINOLOGIC: Denies polyuria, polydipsia, polyphagia or heat/cold intolerances. DERMATOLOGIC: Denies rashes or pruritus. PHYSICAL EXAM GENERAL APPEARANCE: The patient is awake, alert, and oriented, in pain NEUROLOGICAL: Cranial nerves II-XII grossly intact. Motor is 5/5 in bilateral upper and lower extremities proximal to distal. No sensory deficits. HEENT: Face is symmetric. Pupils are equal and reactive. Extraocular movements are intact. NECK: Supple. No JVD. No lymphadenopathy. CHEST: Normal chest expansion. No Telemetry. LUNGS: Absence of any rales, rhonchi or any wheezing. CARDIOVASCULAR: Regular. S1 and S2 normal. No appreciable rubs, murmurs or gallops. ABDOMEN: Soft, epigastric and right upper quadrant tenderness, and nondistended. There is no rebound, voluntary guarding, or rigidity. : Deferred. No [place]. EXTREMITIES: Non-edematous and not cyanotic. No clubbing. Good capillary refill. SKIN: No skin breakdown. Blood pressure 116/57 Pulse 52 Respiratory rate 18 Temperature 97.5 SpO2 97% in room air LABS: Laboratory: Test 03/20/25 04:08 03/19/25 07:29 Range/Units White Blood Count 10.0 4.8-10.8 K/uL Red Blood Count 4.84 4.50-6.20 MIL/uL Hemoglobin 14.8 14.0-18.0 g/dL Hematocrit 41.5 L 42-54 % Mean Corpuscular Volume 85.7 79-99 fL Mean Corpuscular Hemoglobin 30.6 27.0-33.0 pg Mean Corpuscular Hemoglobin Concent 35.7 32.0-36.0 g/dL Red Cell Distribution Width 12.4 11.0-15.5 % Platelet Count 251 130-400 K/uL Mean Platelet Volume 9.7 7.5-10.5 fL Immature Granulocyte % (Auto) 0.4 0-1 % Neutrophils (%) (Auto) 49.7 40.0-77.0 % Lymphocytes (%) (Auto) 38.8 21.0-51.0 % Monocytes (%) (Auto) 8.6 3.0-13.0 % Eosinophils (%) (Auto) 1.9 0.0-8.0 % Basophils (%) (Auto) 0.6 0.0-5.0 % Neutrophils # (Auto) 5.0 1.8-7.7 K/uL Lymphocytes # (Auto) 3.9 1.0-4.8 K/uL Monocytes # (Auto) 0.9 0.1-1.0 K/uL Eosinophils # (Auto) 0.19 0.00-0.70 K/uL Basophils # (Auto) 0.06 0.00-0.20 K/uL Absolute Immature Granulocyte (auto 0.04 0-1 K/uL Nucleated Red Blood Cells 0.0 0.0-0.19 % Sodium Level 142 136-145 mmol/L Potassium Level 3.3 L 3.5-5.1 mmol/L Chloride Level 106 101-111 mmol/L Carbon Dioxide Level 26 21-32 mmol/L Blood Urea Nitrogen 7 7-18 mg/dL Creatinine 1.2 0.5-1.3 mg/dL Glomerular Filtration Rate Calc 86 >90 mL/min Random Glucose 94 70-105 mg/dL Total Calcium 8.5 8.5-10.1 mg/dL Magnesium Level 2.20 1.80-2.40 mg/dL Whole Blood Ketones Quantitative 0.3 0.0-0.6 mmol/L Current Medications Medications (Trade) Dose Ordered Sig/Rissa Route PRN Reason Start Time Stop Time Status Last Admin Dose Admin Acetaminophen (TYLenol 325MG TAB) 650 mg Q6H PRN PO MILD PAIN (1-3) 03/16/25 13:00 04/15/25 12:59 Ceftriaxone Sodium (ROCEphine 1G INJ) 1 gm Q24H IVPB 03/16/25 13:00 03/26/25 12:59 03/19/25 14:02 1 GM Dextrose/Sodium Chloride 1,000 ml @ 100 mls/hr Q10H IV 03/16/25 13:00 04/15/25 12:59 03/19/25 23:09 100 MLS/HR Diazepam (VALium 5 MG/ML 2 ML SYG) 2.5 mg Q12H PRN IV ANXIETY 03/16/25 13:00 03/23/25 12:59 03/20/25 08:52 2.5 MG Haloperidol Lactate (Haldol Inj) 2.5 mg Q8H PRN IM ANXIETY/AGITATION 03/16/25 09:30 03/16/25 13:46 DC 03/16/25 09:21 2.5 MG Hydromorphone HCl (DiLAUDid 0.5MG INJ) 0.5 mg Q4H PRN IVP SEVERE PAIN (7-10) 03/17/25 14:00 03/22/25 13:59 03/20/25 07:06 0.5 MG Magnesium Sulfate 50 ml @ 0 mls/hr PROTOCOL IV 03/16/25 13:00 04/15/25 12:59 Metoclopramide HCl (regLAN 10MG IV) 10 mg TID PRN IVP VOMITING 03/17/25 14:00 04/16/25 13:59 03/18/25 08:18 10 MG Morphine Sulfate (morPHINE 4MG SYG) 2 mg Q6H PRN IVP SEVERE PAIN (7-10) 03/16/25 17:30 03/17/25 13:42 DC 03/17/25 08:05 2 MG Nitroglycerin (Nitrostat) 0.4 mg AD PRN SL CHEST PAIN 03/16/25 11:00 04/15/25 10:59 03/16/25 10:51 0.4 MG Ondansetron HCl (zoFRAN 4MG INJ) 4 mg Q6H PRN IVP NAUSEA/VOMITING 03/16/25 13:00 04/15/25 12:59 03/20/25 06:58 4 MG Pantoprazole Sodium (PROTonix 40MG INJ) 40 mg BID IVP 03/17/25 21:00 04/16/25 08:59 03/20/25 08:52 40 MG Pantoprazole Sodium (PROTonix 40MG INJ) 40 mg DAILY IVP 03/17/25 09:00 03/17/25 13:42 DC 03/17/25 08:04 40 MG Potassium Chloride 100 ml @ 50 mls/hr AD PRN IV POTASSIUM PROTOCOL 03/19/25 13:30 04/18/25 13:29 Potassium Chloride 100 ml @ 100 mls/hr AD PRN IV POTASSIUM PROTOCOL 03/16/25 13:00 03/19/25 13:23 DC Potassium Chloride (K-Dur/Klor-Con 20meq) 20 meq AD PRN PO POTASSIUM PROTOCOL 03/16/25 13:00 03/19/25 13:23 DC 03/18/25 08:10 20 MEQ Potassium Chloride (KCl 10% Elixir 20meq/15ml) 20 meq AD PRN PO POTASSIUM PROTOCOL 03/16/25 13:00 03/19/25 13:23 DC 03/19/25 08:15 20 MEQ Sucralfate (Carafate) 1 gm ACHS PO 03/19/25 17:00 04/18/25 16:59 03/19/25 23:00 1 GM Thiamine HCl (Vitamin B-1) 100 mg Q24H IVP 03/16/25 13:00 04/15/25 12:59 03/19/25 14:02 100 MG DIAGNOSTICS / RADIOLOGY: [ ] ASSESSMENT: Intractable nausea and vomiting, POA Suspected Infectious gastroenteritis, POA PANCHO versus CKD, POA Gastritis, POA Significant dehydration, POA Starvation ketosis, POA Hypokalemia, POA Hypovolemic hyponatremia, POA 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, POA History of THC use disorder, POA Obesity, POA History of cholecystectomy, POA PLAN: Suspected Infectious gastroenteritis, POA Intractable nausea vomiting * Patient started on soft GI diet * stool GI PCR panel is negative * Continue patient on Rocephin and also on Dilaudid 0.5 mg for the abdominal pain * Metoclopramide added to the Zofran for nausea and vomiting * EGD showed esophageal mucosal changes suspicious for eosinophilic esophagitis - biopsied, erythematous mucosa in the stomach-biopsied, normal duodenal bulb and 2nd portion of the duodenum * We will get celiac disease serology * GI recommended gastric emptying scan today. We will repeat CT scan abdomen pelvis. PANCHO versus CKD, POA * Presented with creatinine 1.3, prior records shows creatinine in the range of 1.1-1.5. Creatinine this morning 1.3>1.2 * Urine positive for protein 50 mg/dL * We will get urine protein creatinine ratio, and urine electrolytes * You has a kidney revealed normal kidney size with normal echogenicity * We will consider consulting nephrology for the recommendations Starvation ketosis, POA(resolved) * Patient's blood ketone level is at 1.0 and urine ketones at 100 * Patient is advanced to full liquid diet and also getting thiamine * Concern of eosinophilic esophagitis Gastritis, POA * Patient will be continued on pantoprazole 40 mg IV b.i.d. * Patient is seen by Gastroenterology who advised patient to avoid spicy foods fried foods, acidic juices, caffeine, carbonated drinks, chocolate and foods that contain tomato and tomato sauces * EGD showed esophageal mucosal changes suspicious for eosinophilic esophagitis - biopsied, erythematous mucosa in the stomach-biopsied, normal duodenal bulb and 2nd portion of the duodenum * We will wait for biopsy report. 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 Patient on GI prophylaxis on pantoprazole 40 mg IV b.i.d. We will request labs in am Further orders to follow depending on above results ATTESTATION BY PHYSICIAN I have seen and examined the patient. I reviewed the documentation, medical decision making, and treatment plan as noted by the resident above. I agree with the findings and plan of care. DAT DIAZ MD, SUNIL MD Mar 20, 2025 16:35
--- NOTE | 2025-03-20 17:59 | HMCIMG ---
EXAM: CT Abdomen and Pelvis without Intravenous Contrast CLINICAL HISTORY: 24-year-old male with severe abdominal pain. TECHNIQUE: Axial computed tomography images of the abdomen and pelvis without intravenous contrast. Dose reduction technique was used including one or more of the following: automated exposure control, adjustment of mA and kV according to patient size, and/or iterative reconstruction. CONTRAST: Without. COMPARISON: CT abdomen pelvis 03/16/2025. FINDINGS: LUNG BASES: No basilar airspace consolidation or pleural effusion. LIVER: Unremarkable. GALLBLADDER AND BILE DUCTS: Cholecystectomy clips present. No ductal dilation. PANCREAS: Unremarkable. SPLEEN: Unremarkable. ADRENAL GLANDS: Unremarkable. KIDNEYS, URETERS, AND BLADDER: No hydronephrosis or nephrolithiasis. No ureteral or bladder calculi. STOMACH AND BOWEL: No obstruction. No wall thickening. No CT evidence of colitis or acute diverticulitis. APPENDIX: Normal appendix. No CT evidence for appendicitis. PERITONEUM: No free fluid. No free air. LYMPH NODES: No lymphadenopathy. REPRODUCTIVE: Unremarkable as visualized. VASCULATURE: No aortic aneurysm. ABDOMINAL WALL AND SOFT TISSUES: Unremarkable hernia. Unremarkable metastatic fat. BONES: No fracture or suspicious osseous abnormality. IMPRESSION: 1. No acute intra-abdominal or pelvic abnormality related to the clinical history of severe abdominal pain. /[place]
[2025-03-20 19:38] VITALS: O2SAT 96
[2025-03-20 20:00] VITALS: BP 143/69; PULSE 65; RESP 18; TEMP 98.3
[2025-03-21 01:25] VITALS: BP 120/70; PULSE 62; RESP 18; TEMP 98.4
[2025-03-21 04:22] LABS: IMMATURE GRANULOCYTE ABSOLUTE 0.04 K/uL (0-1); NUCLEATED RED BLOOD CELLS 0.0 % (0.0-0.19); PLATELET COUNT (AUTO) 259 K/uL (130-400); RED BLOOD CELL COUNT(AUTO) 4.77 MIL/uL (4.50-6.20); RED CELL DISTRIBUTION WIDTH 12.4 % (11.0-15.5); WHITE BLOOD COUNT (AUTO) 10.1 K/uL (4.8-10.8)
[2025-03-21 04:27] LABS: CREATININE 1.2 mg/dL (0.5-1.3); GLOMERULAR FILTR. RATE CALC 86.0 mL/min (>90); GLUCOSE,RANDOM 85.0 mg/dL (70-105); SODIUM SERUM 140.0 mmol/L (136-145); UREA NITROGEN, BLOOD 10.0 mg/dL (7-18)
[2025-03-21 05:18] VITALS: BP 139/52; PULSE 84; RESP 18; TEMP 98.5
[2025-03-21 07:58] VITALS: O2SAT 99
[2025-03-21 08:00] VITALS: BP 128/94; PULSE 88; RESP 17; TEMP 98.4
--- NOTE | 2025-03-21 10:39 | PN ---
GASTROENTEROLOGY PROGRESS NOTE Date of Visit: Mar 21, 2025 Time of Visit: 10:37 Events / Notes: Patient underwent EGD on 03/18/2025, who was found to have esophageal mucosal changes suspicious for eosinophilic esophagitis, erythematous mucosa in the stomach, and normal duodenal bulb and 2nd portion of duodenum. Results given to patient and recommendations for GES. Patient agreed to proceed with exam. Emph asize importance patient abstain from Marijuana use and avoidance of irritant foods (greasy, spicy, caffeine, carbonated beverages, foods with tomatoes, citrus fruits). Instructed to take PPI medication bid and f/u at TDS in 1 week from discharge. Informed he will need reevaluation with EGD in about 8-12 weeks. Patient verbalized understanding and agreement. 03/21/25: Patient continues to complain of abdominal pain. His vital signs are stable. Patient underwent a gastric emptying time yesterday and results are pending. CT of abdomen and pelvis showing no acute intra-abdominal or pelvic abnormality related to the clinical history of severe abdominal pain. Patient's WBC of 10.1, hemoglobin 14.5, hematocrit 41.3, platelets 259. Chemistry significant for potassium of 3.4. Stool PCR negative. ] Review of Systems: CONSTITUTIONAL: No malaise or change in sensation of wellbeing. ENMT: No rhinorrhea, otorrhea, sinus pain, ear ache. CARDIOVASCULAR: No angina, palpitations, orthopnea or paroxysmal dyspnea. RESPIRATORY: No SOB. GASTROINTESTINAL: No abdominal pain, nausea, vomiting, diarrhea, hematemesis, melena or change in the patient's habitual bowel movements consistency/number. GENITOURINARY: No dysuria, hematuria or change in bladder continence. MUSCULOSKELETAL: No new muscle pain or decrease in muscular strength. No new joint swelling, redness or tenderness. SKIN: No new rash. Physical Exam: GEN: Awake, alert, oriented in person, time and place, and in no acute distress sitting in bed. HEENT: Oral pharyngeal mucosa is moist and within normal limits. CHEST: Lung auscultation revealed normal breath sounds bilaterally. CARDIAC: Heart sounds are regular. ABD: Soft, tender to epigastric region. Normal bowel sounds. EXT: No cyanosis or clubbing. No edema. SKIN: Intact. No rashes. JOINTS: No evidence of synovitis or acute arthritis. NEURO: Alert and oriented to name, place and person. No focal motor deficits. Normal speech. Strength is normal. Vital Signs (last 8hr) Date Time Temp Pulse Resp B/P (MAP) Pulse Ox O2 Delivery O2 Flow Rate FiO2 03/21/25 08:00 98.4 88 17 128/94 99 Room Air 03/21/25 07:58 99 Room Air* 0 21 03/21/25 05:18 98.4 84 18 139/52 98 Room Air Laboratory: [ ] Laboratory: Test 03/21/25 09:13 03/21/25 03:25 03/20/25 17:04 Range/Units Potassium Level 3.6 3.5-5.1 mmol/L White Blood Count 10.1 4.8-10.8 K/uL Red Blood Count 4.77 4.50-6.20 MIL/uL Hemoglobin 14.5 14.0-18.0 g/dL Hematocrit 41.3 L 42-54 % Mean Corpuscular Volume 86.6 79-99 fL Mean Corpuscular Hemoglobin 30.4 27.0-33.0 pg Mean Corpuscular Hemoglobin Concent 35.1 32.0-36.0 g/dL Red Cell Distribution Width 12.4 11.0-15.5 % Platelet Count 259 130-400 K/uL Mean Platelet Volume 10.0 7.5-10.5 fL Immature Granulocyte % (Auto) 0.4 0-1 % Neutrophils (%) (Auto) 52.1 40.0-77.0 % Lymphocytes (%) (Auto) 36.5 21.0-51.0 % Monocytes (%) (Auto) 8.7 3.0-13.0 % Eosinophils (%) (Auto) 1.7 0.0-8.0 % Basophils (%) (Auto) 0.6 0.0-5.0 % Neutrophils # (Auto) 5.2 1.8-7.7 K/uL Lymphocytes # (Auto) 3.7 1.0-4.8 K/uL Monocytes # (Auto) 0.9 0.1-1.0 K/uL Eosinophils # (Auto) 0.17 0.00-0.70 K/uL Basophils # (Auto) 0.06 0.00-0.20 K/uL Absolute Immature Granulocyte (auto 0.04 0-1 K/uL Nucleated Red Blood Cells 0.0 0.0-0.19 % Sodium Level 140 136-145 mmol/L Chloride Level 103 101-111 mmol/L Carbon Dioxide Level 27 21-32 mmol/L Blood Urea Nitrogen 10 7-18 mg/dL Creatinine 1.2 0.5-1.3 mg/dL Glomerular Filtration Rate Calc 86 >90 mL/min Random Glucose 85 70-105 mg/dL Total Calcium 8.7 8.5-10.1 mg/dL Magnesium Level 2.10 1.80-2.40 mg/dL Erythrocyte Sedimentation Rate 2 0-15 MM/HR Current Medications Medications (Trade) Dose Ordered Sig/Rissa Route PRN Reason Start Time Stop Time Status Last Admin Dose Admin Acetaminophen (TYLenol 325MG TAB) 650 mg Q6H PRN PO MILD PAIN (1-3) 03/16/25 13:00 04/15/25 12:59 Ceftriaxone Sodium (ROCEphine 1G INJ) 1 gm Q24H IVPB 03/16/25 13:00 03/26/25 12:59 03/20/25 16:52 1 GM Dextrose/Sodium Chloride 1,000 ml @ 100 mls/hr Q10H IV 03/16/25 13:00 04/15/25 12:59 03/21/25 03:11 100 MLS/HR Diazepam (VALium 5 MG/ML 2 ML SYG) 2.5 mg Q12H PRN IV ANXIETY 03/16/25 13:00 03/23/25 12:59 03/20/25 08:52 2.5 MG Haloperidol Lactate (Haldol Inj) 2.5 mg Q8H PRN IM ANXIETY/AGITATION 03/16/25 09:30 03/16/25 13:46 DC 03/16/25 09:21 2.5 MG Hydromorphone HCl (DiLAUDid 0.5MG INJ) 0.5 mg Q4H PRN IVP SEVERE PAIN (7-10) 03/17/25 14:00 03/22/25 13:59 03/20/25 17:02 0.5 MG Magnesium Sulfate 50 ml @ 0 mls/hr PROTOCOL IV 03/16/25 13:00 04/15/25 12:59 Metoclopramide HCl (regLAN 10MG IV) 10 mg TID PRN IVP VOMITING 03/17/25 14:00 04/16/25 13:59 03/20/25 23:09 10 MG Morphine Sulfate (morPHINE 4MG SYG) 2 mg Q6H PRN IVP SEVERE PAIN (7-10) 03/16/25 17:30 03/17/25 13:42 DC 03/17/25 08:05 2 MG Nitroglycerin (Nitrostat) 0.4 mg AD PRN SL CHEST PAIN 03/16/25 11:00 04/15/25 10:59 03/16/25 10:51 0.4 MG Ondansetron HCl (zoFRAN 4MG INJ) 4 mg Q6H PRN IVP NAUSEA/VOMITING 03/16/25 13:00 04/15/25 12:59 03/20/25 17:07 4 MG Pantoprazole Sodium (PROTonix 40MG INJ) 40 mg BID IVP 03/17/25 21:00 04/16/25 08:59 03/21/25 08:53 40 MG Pantoprazole Sodium (PROTonix 40MG INJ) 40 mg DAILY IVP 03/17/25 09:00 03/17/25 13:42 DC 03/17/25 08:04 40 MG Potassium Chloride 100 ml @ 50 mls/hr AD PRN IV POTASSIUM PROTOCOL 03/19/25 13:30 04/18/25 13:29 03/21/25 04:34 50 MLS/HR Potassium Chloride 100 ml @ 100 mls/hr AD PRN IV POTASSIUM PROTOCOL 03/16/25 13:00 03/19/25 13:23 DC Potassium Chloride (K-Dur/Klor-Con 20meq) 20 meq AD PRN PO POTASSIUM PROTOCOL 03/16/25 13:00 03/19/25 13:23 DC 03/18/25 08:10 20 MEQ Potassium Chloride (KCl 10% Elixir 20meq/15ml) 20 meq AD PRN PO POTASSIUM PROTOCOL 03/16/25 13:00 03/19/25 13:23 DC 03/19/25 08:15 20 MEQ Sucralfate (Carafate) 1 gm ACHS PO 03/19/25 17:00 04/18/25 16:59 03/21/25 06:38 1 GM Thiamine HCl (Vitamin B-1) 100 mg Q24H IVP 03/16/25 13:00 04/15/25 12:59 03/20/25 17:16 100 MG Diagnostics / Radiology: [COPY/PASTE HERE IF NO REPORTS PLEASE DELETE SECTION] Assessment: [ Abdominal pain Nausea and vomiting Marijuana use Concern for eosinophilic esophagitis Gastritis] Plan: Case discussed with Dr. Carter Protonix 40mg po daily Carafate suspension 1gram po QID GES study done--results pending Cannabis Abstinence is strongly recommended Please call with questions, concerns, and change in clinical status. Thank you for this consult. ] EDGARD JASMINE NP Mar 21, 2025 10:39
[2025-03-21] MEDS ORDERED: HYOSCYAMINE SULFATE 0.125 MG TAB.SUBL SL SCH ×2 (11:30→14:00)
[2025-03-21 16:00] VITALS: BP 150/97; PULSE 74; RESP 19; TEMP 97.6
[2025-03-21] MEDS ORDERED: ESOM40CA66 PO (16:56)
[2025-03-21] MEDS ORDERED: SUCR1TAB2 PO (16:57)
--- NOTE | 2025-03-21 17:15 | DS ---
Discharge Summary Hospital Course Summary: Patient is a 24-year-old male with chronic THC use, obesity, presented to the ER for further evaluation of nonresolving, intractable nausea and vomiting ongoing for the past three days. This has been accompanied by [id number] epigastric abdominal pain worsened with vomiting. He has been also having loose stool about 6-7 episodes nonbloody. Reports that three days ago, he had barbecue for lunch, denies any sick contacts. Patient reports that he has been having intermittent episodes with abdominal pain for about a month which improves with taking warm showers. He has been using marijuana chronically for the past 10 years, last use of marijuana was about three days ago. He uses marijuana almost every day. Patient does report having previous history of cholecystectomy in 2021 as well. 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 He was discharged home on p.r.n. antiemetics with Zofran. Patient also reports having some chest discomfort since vomiting so frequently. Denies active chest pain currently. Chest x-ray showed no acute infiltrates. Patient has not been able to tolerate oral intake for the past two days due to continuous vomiting. Patient will be admitted under hospitalist service. We will start patient on IV fluids, IV thiamine supplementation, p.r.n. antiemetics and anti-reflux medication. We will start patient on broad-spectrum antibiotics due to concerns of infectious gastroenteritis. CT abdomen pelvis without contrast will be obtained. Consultation with GI will be requested this admission as well. Patient was extensively counseled on quitting THC use which can increase risk of cyclical vomiting/ cannabis associated hyperemesis syndrome. Patient verbalized understanding. 03/17/2025: Patient was still in pain which improved from the time of admission, the patient rated the pain 8/10 in the ER while today he rated it at a 4/10. Patient still continues to have nausea and vomiting. Metoclopramide 10 mg has been added for the nausea and vomiting and Dilaudid 0.5 mg has been also ordered for the pain. Given the pain patient's tender abdomen lipase has been ordered which which came back normal at 30. Patient's abdominal CT also came back normal. Patient also mentioned that he has acid reflux quite often and feels acid coming up to his throat when lying flat, patient was started on 40 mg IV Protonix b.i.d. GI examined the patient and scheduled him for a EGD. Patient continued to be on IV fluid. 03/18/2025: He appeared in excruciating pain so 2 doses of Dilaudid 0.5 mg were given which control the pain. He reports continued vomiting X5 today. EGD done today morning showed esophageal mucosal changes suspicious for eosinophilic esophagitis, erythematous mucosa in the stomach with normal duodenal bulb and 2nd portion of the duodenum. So esophagus and stomach biopsies were taken. 03/19/2025: He was AAO x3. He stated that his nausea and vomiting has improved and was tolerating full liquid diet. Remarkable lab was for creatinine 1.3. EGD revealed the features of eosinophilic esophagitis and gastritis grossly, biopsy taken. He is on Protonix 40 mg b.i.d. and Rocephin 1g daily, DNS 100 mL/hour and PRN medications for vomiting. Pending GI PCR, celiac disease serology. For his raised creatinine and urine positive for protein, we got urine protein creatinine ratio, ultrasound kidney and urine electrolytes. 03/20/2025: He was evaluated at the bedside this morning. He was AAO x3. He complained of pain in right upper quadrant .Remarkable lab is for creatinine 1.2. He is on pantoprazole, Zofran, metoclopramide, thiamine and Rocephin. GI recommended gastric emptying scan which is scheduled today. GI PCR panel was negative. For the abdominal pain, CT abdomen pelvis has been requested. Ultrasound of kidney was unremarkable for abnormal echogenicity and abnormal size. 03/21/2025:Patient was complaining of anxiety for which Diazepam was given. He repeatedly insisted to leave the hospital. patient was advised for inpatient psychiatry consult which he denied. GI cleared the patient for discharge with follow/up with them in 1 week. He also need to follow/up with psychiatry in 1-2 weeks for his anxiety and drug abuse. Patient was discharged on pantoprazole 40 mg bid and sucralfate 1 gm twice a day as needed. He was also advised not to smoke THC on discharge. Third Loader(s): GI CONSULT FOR INTRACTABLE NAUSEA VOMITING. Procedure(s): Upper GI endoscopy : Impression -Esophageal mucosal changes suspicious of eosinophilic esophagitis, biopsied -Erythematous mucosa in the stomach, biopsied -Test normal duodenal bulb and 2nd portion of the duodenum. PATIENT: PORTILLO,CINDY MR#: [id number] : 2000 SEX: M AGE: 24 LOCATION: [facility] ORDER 1043 STATUS: REG ER REPORT#: [id number] SERVICE 1039 REASON: cannabinoid hyperemisis syndrome ORDERING PHYSICIAN: UBALDO BALDWIN MD PROCEDURE: CXR1VW - CHEST 1VW EXAM: CR Chest, 1 View. CLINICAL HISTORY: cannabinoid hyperemisis syndrome COMPARISON: None provided. FINDINGS: LUNGS: The lungs show no infiltrate or other acute finding. PLEURAL SPACES: No evidence of pleural effusion or pneumothorax. MEDIASTINUM: Cardiac size and mediastinal contours within normal limits. BONES: No aggressive appearing osseous lesion seen. IMPRESSION: No acute cardiopulmonary pathology is evident. /[facility] DICTATED BY: GLORIA ELIZABETH Jr., MD DATE: 03/16/25 1236 ELECTRONICALLY SIGNED BY: GLORIA ELIZABETH Jr., MD DATE: 03/16/25 1236 PATIENT: CINDY PORTILLO MR#: [id number] : 2000 SEX: M AGE: 24 LOCATION: [facility] ORDER 1245 STATUS: ADM IN REPORT#: [id number] SERVICE 1233 REASON: abdominal pain, n/v x 3 days, diarrhea, hx of THC use ORDERING PHYSICIAN: GAVIN TREADWELL MD PROCEDURE: ABD PEL WO - CT ABDOMEN/PELVIS W/O CONTRAST CT ABDOMEN/PELVIS W/O CONTRAST REASON: abdominal pain, n/v x 3 days, diarrhea, hx of THC use COMPARISON: None. FINDINGS: Lung bases are clear. There are no focal liver lesions. There is mild grade 1 hepatic steatosis of the liver. There are normal-appearing kidneys.. Spleen and pancreas appear unremarkable. The gallbladder is surgically absent with clips in the gallbladder fossa.. Bowel loops appear unremarkable. This includes normal appearance of the appendix There is no evidence of free fluid or intraperitoneal air. There are no focal fluid collections. Aorta and retroperitoneum appear normal as do pelvic soft tissue structures. The anterior abdominal wall is intact. Osseous structures appear unremarkable. The prostate and several vesicles appears to be normal. The urinary bladder appears to be decompressed. IMPRESSION: 1. No acute process seen in the CT of abdomen and pelvis without intravenous contrast.. CT was performed with one or more following dose reduction techniques: automated exposure control, adjustment of the mA and kv according to patient's size, or use of a iterative reconstruction technique. DICTATED BY: MICHELLE ALBRIGHT MD DATE: 03/16/251435 ELECTRONICALLY SIGNED BY: MICHELLE ALBRIGHT MD DATE: 03/16/25 1623 PATIENT: CINDY PORTILLO MR#: [id number] : 2000 SEX: M AGE: 24 LOCATION: [facility] ORDER 141 STATUS: ADM IN REPORT#: [id number] SERVICE 141 REASON: CKD? ORDERING PHYSICIAN: WILBERT CONCEPCION MD PROCEDURE: RENAL - US RENAL SONOGRAM EXAMINATION: ULTRASOUND OF THE RETROPERITONEUM. CLINICAL HISTORY: CKD. COMPARISON: CT abdomen and pelvis without contrast dated 03/16/2025. TECHNIQUE: Real-time grayscale ultrasound images of the kidneys. FINDINGS: The kidneys are normal in caliber, the right kidney measures 10.8 x 5.1 x 6.0 cm and the left kidney measures 10.8 x 5.5 x 5.3 cm in its craniocaudal, AP, and transverse dimensions respectively. There is normal renal cortical thickness, and cortical echogenicity. There is no renal calculus or hydronephrosis. The urinary bladder is partially distended with normal wall thickness (0.26 cm). There are no calculi in the urinary bladder. Pre-void volume is 55 cc and post-void volume is not assessed. Incidentally, there is fatty liver. IMPRESSION: No significant abnormality in the retroperitoneum. Incidentally noted, hepatic steatosis. /[facility] DICTATED BY: MEJIA GODOY MD DATE: 03/20/2542 ELECTRONICALLY SIGNED BY: MEJIA GODOY MD DATE: 03/20/25741 PATIENT: CINDY PORTILLO MR#: [id number] : 2000 SEX: M AGE: 24 LOCATION: [facility] ORDER 1352 STATUS: ADM IN REPORT#: [id number] SERVICE 1352 REASON: severe abdominal pain ORDERING PHYSICIAN: JOSE VERGARA MD PROCEDURE: ABD PEL WO - CT ABDOMEN/PELVIS W/O CONTRAST EXAM: CT Abdomen and Pelvis without Intravenous Contrast CLINICAL HISTORY: 24-year-old male with severe abdominal pain. TECHNIQUE: Axial computed tomography images of the abdomen and pelvis without intravenous contrast. Dose reduction technique was used including one or more of the following: automated exposure control, adjustment of mA and kV according to patient size, and/or iterative reconstruction. CONTRAST: Without. COMPARISON: CT abdomen pelvis 03/16/2025. FINDINGS: LUNG BASES: No basilar airspace consolidation or pleural effusion. LIVER: Unremarkable. GALLBLADDER AND BILE DUCTS: Cholecystectomy clips present. No ductal dilation. PANCREAS: Unremarkable. SPLEEN: Unremarkable. ADRENAL GLANDS: Unremarkable. KIDNEYS, URETERS, AND BLADDER: No hydronephrosis or nephrolithiasis. No ureteral or bladder calculi. STOMACH AND BOWEL: No obstruction. No wall thickening. No CT evidence of colitis or acute diverticulitis. APPENDIX: Normal appendix. No CT evidence for appendicitis. PERITONEUM: No free fluid. No free air. LYMPH NODES: No lymphadenopathy. REPRODUCTIVE: Unremarkable as visualized. VASCULATURE: No aortic aneurysm. ABDOMINAL WALL AND SOFT TISSUES: Unremarkable hernia. Unremarkable metastatic fat. BONES: No fracture or suspicious osseous abnormality. IMPRESSION: 1. No acute intra-abdominal or pelvic abnormality related to the clinical history of severe abdominal pain. /[facility] DICTATED BY: ANNETTE ROBERTO MD DATE: 03/20/251857 ELECTRONICALLY SIGNED BY: ANNETTE ROBERTO MD DATE: 03/20/251857 Assessment/Plan: ASSESSMENT: Intractable nausea and vomiting, POA Suspected Infectious gastroenteritis, POA PANCHO versus CKD, POA Gastritis, POA Significant dehydration, POA Starvation ketosis, POA Hypokalemia, POA Hypovolemic hyponatremia, POA 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, POA History of THC use disorder, POA Obesity, POA History of cholecystectomy, POA PLAN: Suspected Infectious gastroenteritis, POA Intractable nausea vomiting * Patient started on soft GI diet * stool GI PCR panel is negative * Continue patient on Rocephin and also on Dilaudid 0.5 mg for the abdominal pain * Metoclopramide added to the Zofran for nausea and vomiting * EGD showed esophageal mucosal changes suspicious for eosinophilic esophagitis - biopsied, erythematous mucosa in the stomach-biopsied, normal duodenal bulb and 2nd portion of the duodenum * We will get celiac disease serology * GI recommended gastric emptying scan today. We will repeat CT scan abdomen pelvis. PANCHO versus CKD, POA * Presented with creatinine 1.3, prior records shows creatinine in the range of 1.1-1.5. Creatinine this morning 1.3>1.2 * Urine positive for protein 50 mg/dL * We will get urine protein creatinine ratio, and urine electrolytes * You has a kidney revealed normal kidney size with normal echogenicity * We will consider consulting nephrology for the recommendations Starvation ketosis, POA(resolved) * Patient's blood ketone level is at 1.0 and urine ketones at 100 * Patient is advanced to full liquid diet and also getting thiamine * Concern of eosinophilic esophagitis Gastritis, POA * Patient will be continued on pantoprazole 40 mg IV b.i.d. * Patient is seen by Gastroenterology who advised patient to avoid spicy foods fried foods, acidic juices, caffeine, carbonated drinks, chocolate and foods that contain tomato and tomato sauces * EGD showed esophageal mucosal changes suspicious for eosinophilic esophagitis - biopsied, erythematous mucosa in the stomach-biopsied, normal duodenal bulb and 2nd portion of the duodenum * We will wait for biopsy report. 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 Patient on GI prophylaxis on pantoprazole 40 mg IV b.i.d. We will request labs in am Further orders to follow depending on above results Discharge Instructions: -You are prescribed omeprazole 40 mg twice a day. Please continue as recommended. -You are prescribed sucralfate 1 g twice a day. Please continue as needed -Please avoid the use of THC -Continue soft GI diet -FOLLOW UP WITH GI [phone] ZIMMER MARCH 29, 2025 AT 2:15 P.M. [address], [place] -FOLLOW UP WITH PCP IN 3-5 DAYS -FOLLOW UP WITH PSYCHIATRY IN 2 WEEKS FOR YOUR ANXIETY. -IN CASE OF AN EMERGENCY CALL 911 OR GO TO YOUR NEAREST ER. Home Medications: Active Scripts Sucralfate (Sucralfate) 1 Gram Tablet, 1 GM PO ACHS for 30 Days, #60 TAB Prov:JOSE VERGARA MD 03/21/25 Esomeprazole Magnesium (Esomeprazole Magnesium) 40 Mg Capsule., 40 MG PO BIDAC for 30 Days, #60 CAP Prov:JOSE VERGARA MD 03/21/25 Discontinued Scripts Ondansetron (Ondansetron Odt) 4 Mg Tab.rapdis, 4 MG PO Q6HPRN PRN for nausea, #16 TAB 0 Refills Prov:VIC HANSON MD 03/14/25 Ondansetron HCl (Ondansetron HCl) 4 Mg Tablet, 4 MG PO TIDP PRN for VOMITING, #20 TAB Prov:ALBERTO KOWALSKI MD 11/17/22 Mag Hydrox/Al Hydrox/Simeth (Maalox Maximum Strength Susp) 355 Ml Oral.susp, 355 ML PO QIDP PRN for PAIN, #300 ML Prov:ALBERTO KOWALSKI MD 11/17/22 Omeprazole (Omeprazole) 40 Mg Capsule., 40 MG PO DAILY, #30 CAP Prov:ALBERTO KOWALSKI MD 11/17/22 New Medications: Esomeprazole Magnesium (Esomeprazole Magnesium) 40 Mg Capsule. 40 MG PO BIDAC for 30 Days, #60 CAP Sucralfate (Sucralfate) 1 Gram Tablet 1 GM PO ACHS for 30 Days, #60 TAB Time spent arranging discharge: 1-30 minutes ATTESTATION BY PHYSICIAN I have seen and examined the patient. I reviewed the documentation, medical decision making, and treatment plan as noted by the resident provider above. I agree with the findings and plan of care. Travis Stock IV, MD, SUNIL MD Mar 21, 2025 17:15
--- NOTE | 2025-03-22 21:13 | HMCIMG ---
EXAM: Nuclear Medicine Gastric Emptying Scan. INDICATION: Abdominal pain, nausea, and vomiting. REFERENCE EXAMINATION: None. TECHNIQUE: 2.1 mCi of Tc99 m sulfur colloid with egg whites, 2 slices of bread/jam, and 4 ounces of water. FINDINGS: Transit of radiopharmaceutical is seen from the stomach into the small bowel. 50% gastric emptying achieved in 57 minutes. IMPRESSION: Scintigraphic findings suggest gastroparesis. /[facility]
== END 2025-03-21 18:00 | disposition home or self-care (01) | DRG 392 ==
LOC: EDH 08:39 → EDHIP 08:40 → 3AH 22:29
PROVIDERS: ADMIT Internal Medicine; ATTEND Internal Medicine
PROC: 0DB58ZX Excision of Esophagus, Via Natural or Artificial Opening Endoscopic, Diagnostic (ICD-10-PCS; principal; 2025-03-18)
PROC: 0DB68ZX Excision of Stomach, Via Natural or Artificial Opening Endoscopic, Diagnostic (ICD-10-PCS; 2025-03-18)
DX: A09 Infectious gastroenteritis and colitis, unspecified (principal); E87.1 Hypo-osmolality and hyponatremia; K20.0 Eosinophilic esophagitis; E86.1 Hypovolemia; E86.0 Dehydration; E87.6 Hypokalemia; K29.70 Gastritis, unspecified, without bleeding; E88.89 Other specified metabolic disorders; K22.89 Other specified disease of esophagus; F12.90 Cannabis use, unspecified, uncomplicated; K31.89 Other diseases of stomach and duodenum; E66.9 Obesity, unspecified; F41.9 Anxiety disorder, unspecified; K21.9 Gastro-esophageal reflux disease without esophagitis; N18.9 Chronic kidney disease, unspecified; Z90.49 Acquired absence of other specified parts of digestive tract; Z91.013 Allergy to seafood; Z79.899 Other long term (current) drug therapy; Z68.36 Body mass index [BMI] 36.0-36.9, adult
CPT/HCPCS: 36415; 43239; 71045; 74176; 76770; 78264; 80048; 80053; 80076; 80305; 81001; 82010; 82784; 82948; 83036; 83516; 83690; 83735; 84132; 84145; 84443; 84484; 85025; 85027; 85651; 86140; 86231; 86364; 87507; 93005; 96361; 96372; 96374; 96375; 99285; A4606; A9541; G0378; J0696; J1171; J1630; J1885; J2003; J2270; J2405; J2470; J2550; J2704; J2765; J3360; J3411; J3480; J7030; J7042; A4215; A4222; A4223; A4620; J3490

== ENCOUNTER 2025-03-24 16:18 | Emergency (ER) | payer SELFPAY ==
[~2025-03-24] VITALS: Ht 180.3 cm; Wt 120.2 kg
[~2025-03-24 16:18] MED LIST changes: +ESOM40CA66 PO; -MAG-55 PO; -OMEP40CA21 PO; -ONDA-104 PO; -ONDA-243 PO; +SUCR1TAB2 PO
--- NOTE | 2025-03-24 16:33 | ERN ---
ED Note History of Present Illness Stated Complaint: abdominal pain Chief Complaint: Suicidal Ideation Time Seen by MD: 16:24 Time Seen by Midlevel: 16:30 Dictation: Mr Gloria is a 24 year old male with history of anxiety, obesity, chronic marijuana use, and esophagitis/gastritis who transported via EMS to the emergency department this afternoon for evaluation of abdominal pain. Reports worsening upper abdominal/epigastric pain for the past week. He states that he is unable to keep any of his medications down and that he is unable to keep down his promethazine liquid to prevent nausea. He was discharged from the hospital on 03/21 following a lengthy hospitalization for persistent nausea and vomiting, anxiety, and abdominal pain. He underwent EGD which revealed eosinophilic esophagitis. It also revealed normal duodenal bulb and 2nd portion of duodenum. Biopsy was obtained. He was supposed to have inpatient psychiatric consult but he declined. He was cleared by GI for discharge and was instructed to follow up in 1-2 weeks for results. He was also instructed to take twice daily Protonix. When he arrived to the hospital he states that he has had increased anxiety and that he wants to . He denies history of previous suicidal ideation. He glo es intent to harm others. He denies auditory or visual hallucinations. He denies use of alcohol or recreational drugs. He denies fever, chills, shortness of breath, cough, chest pain, palpitations, edema,hematemesis, constipation, diarrhea, melena, hematochezia, dysuria, headache, dizziness, or focal weakness/paresthesia Allergies: Coded Allergies: shellfish derived (Unverified Allergy, Unknown, HIVES, 06/02/22) Home Meds Active Scripts Sucralfate (Sucralfate) 1 Gram Tablet, 1 GM PO ACHS for 30 Days, #60 TAB Prov:JOSE VERGARA MD 03/21/25 Esomeprazole Magnesium (Esomeprazole Magnesium) 40 Mg Capsule.dr, 40 MG PO BIDAC for 30 Days, #60 CAP Prov:JOSE VERGARA MD 03/21/25 Discontinued Scripts Ondansetron (Ondansetron Odt) 4 Mg Tab.rapdis, 4 MG PO Q6HPRN PRN for nausea, #16 TAB 0 Refills Prov:VIC HANSON MD 03/14/25 Ondansetron HCl (Ondansetron HCl) 4 Mg Tablet, 4 MG PO TIDP PRN for VOMITING, #20 TAB Prov:ALBERTO KOWALSKI MD 11/17/22 Mag Hydrox/Al Hydrox/Simeth (Maalox Maximum Strength Susp) 355 Ml Oral.susp, 355 ML PO QIDP PRN for PAIN, #300 ML Prov:ALBERTO KOWALSKI MD 11/17/22 Omeprazole (Omeprazole) 40 Mg Capsule.dr, 40 MG PO DAILY, #30 CAP Prov:ALBERTO KOWALSKI MD 11/17/22 Past Medical History Past Medical History: Anxiety Additional Past Medical Hx: Gallbladder disease Surgical History: Cholecystectomy Family History: Negative Social History: Smokers, Other Initial Vital Sign VS Vital Signs Date Time Temp Pulse Resp B/P (MAP) Pulse Ox O2 Delivery O2 Flow Rate FiO2 03/24/25 16:23 64 18 132/86 98 Room Air 0 03/24/25 16:45 98.2 21 Physical Exam Dictation Vital signs: Reviewed. Afebrile Constitutional: No acute distress. Non-toxic appearing. Head/Face: Normocephalic, atraumatic. Eyes: Periorbital areas with no swelling, redness, or edema. Lids and lashes are normal. Conjunctival injection is absent. Sclera anicteric. Pupils equal, round, reactive to light. ENT: Pinnas intact and no signs of trauma or erythema. Ear canals clear and no discharge. TMs no erythema. No nasal discharge or bleeding noted. Oropharynx wit h no exudate, redness, swelling, masses, exudates, or evidence of obstruction. Uvula midline. Mucous membranes slightly dry. Neck: Trachea midline, no masses palpated, and no cervical lymphadenopathy. No swelling. Supple, full range of motion. Chest/Axilla: No tenderness, no crepitus, no paradoxical movement, no retractions. Cardiovascular: Regular rate, regular rhythm, no murmur, no gallops. Symmetric pulses. No peripheral edema. Twelve lead EKG reflects a sinus bradycardia witho ut ST elevation or depression. BP 132/86. Respiratory: Respirations even and unlabored. Lung sounds clear; no wheezes, rales or rhonchi. Room air SpO2 98% Gastrointestinal: Inspection is normal. No distention is appreciated. Bowel sounds are normal. No mass or organomegaly pain upon palpation over the epigastrium. No rebound. No rigidity. No voluntary or involuntary guarding. No Britt's sign. Neurological: Normal speech, gross motor function intact, gross sensory function intact. No focal weakness/Paresthesia. Musculoskeletal/Extremities: All extremities have full range of motion, no pain or tenderness on palpation. Symmetric pulses. Integumentary: Intact. Skin is normal color, warm and dry. Cap refill less than 2 seconds. Results (Laboratory/Radiology) Laboratory/Radiology Laboratory Tests Test 03/24/25 17:06 White Blood Count 10.5 K/uL (4.8-10.8) Red Blood Count 5.09 MIL/uL (4.50-6.20) Hemoglobin 15.5 g/dL (14.0-18.0) Hematocrit 42.9 % (42-54) Mean Corpuscular Volume 84.3 fL (79-99) Mean Corpuscular Hemoglobin 30.5 pg (27.0-33.0) Mean Corpuscular Hemoglobin Concent 36.1 g/dL (32.0-36.0) H Red Cell Distribution Width 12.3 % (11.0-15.5) Platelet Count 291 K/uL (130-400) Mean Platelet Volume 10.1 fL (7.5-10.5) Immature Granulocyte % (Auto) 0.3 % (0-1) Neutrophils (%) (Auto) 70.8 % (40.0-77.0) Lymphocytes (%) (Auto) 19.3 % (21.0-51.0) L Monocytes (%) (Auto) 9.0 % (3.0-13.0) Eosinophils (%) (Auto) 0.2 % (0.0-8.0) Basophils (%) (Auto) 0.4 % (0.0-5.0) Neutrophils # (Auto) 7.4 K/uL (1.8-7.7) Lymphocytes # (Auto) 2.0 K/uL (1.0-4.8) Monocytes # (Auto) 0.9 K/uL (0.1-1.0) Eosinophils # (Auto) 0.02 K/uL (0.00-0.70) Basophils # (Auto) 0.04 K/uL (0.00-0.20) Absolute Immature Granulocyte (auto 0.03 K/uL (0-1) Nucleated Red Blood Cells 0.0 % (0.0-0.19) Red Blood Cell Morphology See comments Sodium Level 141 mmol/L (136-145) Potassium Level 3.7 mmol/L (3.5-5.1) Chloride Level 105 mmol/L (101-111) Carbon Dioxide Level 24 mmol/L (21-32) Blood Urea Nitrogen 12 mg/dL (7-18) Creatinine 1.3 mg/dL (0.5-1.3) Glomerular Filtration Rate Calc 78 mL/min (>90) Random Glucose 88 mg/dL (70-105) Lactic Acid Level 1.6 mmol/L (0.8-2.5) Total Calcium 9.0 mg/dL (8.5-10.1) Magnesium Level 2.30 mg/dL (1.80-2.40) Total Bilirubin 0.7 mg/dL (0.2-1.0) Direct Bilirubin 0.2 mg/dL (0.0-0.3) Aspartate Amino Transf (AST/SGOT) 35 U/L (10-37) Alanine Aminotransferase (ALT/SGPT) 100 U/L (12-78) H Alkaline Phosphatase 62 U/L (50-136) Troponin I High Sensitivity 5 ng/L (4-75) Total Protein 7.5 g/dL (6.0-8.3) Albumin 4.5 g/dL (3.5-5.0) Lipase 34 U/L (16-77) Salicylates Level < 2.8 mg/dL (2.8-20.0) L Acetaminophen Level < 1 mcg/mL (10-29) L Labs Reviewed?: Yes EKG Comment: EKG Interpretation: Time Reviewed: 1743 Ventricular rate: 55 bpm ME Interval: 165 ms QRS duration: [address] segment elevation or depression. Clinical impression: Sinus bradycardia EKG Reviewed and interpreted by Dr. Casey ED Course ED Course Orders Procedure Category Date Status Time Cbc With Differential LAB 03/24/25 Complete 16:45 Basic Metabolic Panel LAB 03/24/25 Complete 16:45 Hepatic Function Panel LAB 03/24/25 Complete 16:45 Lipase LAB 03/24/25 Complete 16:45 Urinalysis Profile LAB 03/24/25 Logged 16:45 Drug Screen Urine LAB 03/24/25 Logged 16:45 Ondansetron 4mg Inj PHA 03/24/25 Complete (Zofran 4mg Inj) 17:00 Hydromorphone 0.5mg PHA 03/24/25 Complete Syg (Dilaudid 0.5mg 17:00 0.9%Nacl 1000ml (Ns PHA 03/24/25 Complete 1000ml) 17:00 Magnesium LAB 03/24/25 Complete 16:45 Lactic Acid LAB 03/24/25 Complete 16:45 Troponin I High LAB 03/24/25 Complete Sensitivity 16:45 12 Lead Ekg Tracing- EKG 03/24/25 Complete Technical 16:45 Acetaminophen LAB 03/24/25 Complete 16:45 Salicylate LAB 03/24/25 Complete 16:45 Pantoprazole 40mg Inj PHA 03/24/25 Complete (Protonix 40mg Inj 17:00 Current Medications Medications (Trade) Dose Ordered Sig/Rissa Route PRN Reason Start Time Stop Time Status Last Admin Dose Admin Hydromorphone HCl (DiLAUDid 0.5MG INJ) 0.5 mg ONCE ONCE IVP 03/24/25 17:00 03/24/25 17:01 DC Ondansetron HCl (zoFRAN 4MG INJ) 4 mg ONCE ONCE IVP 03/24/25 17:00 03/24/25 17:01 DC 03/24/25 17:16 Pantoprazole Sodium (PROTonix 40MG INJ) 40 mg ONCE ONCE IVP 03/24/25 17:00 03/24/25 17:01 DC 03/24/25 17:16 Sodium Chloride 1,000 ml @ 0 mls/hr ONCE ONCE IV 03/24/25 17:00 03/24/25 17:01 DC 03/24/25 17:16 Vital Signs Date Time Temp Pulse Resp B/P (MAP) Pulse Ox O2 Delivery O2 Flow Rate FiO2 03/24/25 16:45 98.2 92 18 128/69 98 Room Air* 0 21 03/24/25 16:23 64 18 132/86 98 Room Air 0 Medical Decision Making MDM MDM: Differential diagnosis: Gastritis/exacerbation of esophagitis, acute dehydration, electrolyte derangement, anxiety, depression/suicidal ideation Rationale: Tests considered and ordered secondary to shared decision making include: Lab, psych screening Previous outside records reviewed: Old ER visits. Risk of complication and/or morbidity or mortality of patient management: None Medications-Per medication reconciliation Need for hospitalization: Patient does not meet criteria for hospitalization. Need for emergency major/minor surgery: No There are no social concerns with this patient. Prescription drug management Prescriptions will include symptomatic care Patient's prior external medical records from other ER visits were reviewed by me as indicated. Prior testing and results from previous visits were reviewed. Prior tests were taken into account with medical decision making and resource utilization, independent historian/historians were used to obtain complete medical history. I independently interpreted the test that were performed, results were reviewed by me and considered findings on radiology if ordered. Medical management and examination interpretation discussions were had by me with other qualified healthcare professionals as indicated for the patient's care. DX & DISP Departure Condition: Stable Referrals: SELF,REFERRAL (PCP) ELIE SHELDON NP Mar 24, 2025 16:33
[2025-03-24] MEDS: 0.9%NACL 1000ML 1,000 ML IV ONE ×2 (17:16→18:42)
[2025-03-24 17:38] LABS: IMMATURE GRANULOCYTE ABSOLUTE 0.03 K/uL (0-1); NUCLEATED RED BLOOD CELLS 0.0 % (0.0-0.19); PLATELET COUNT (AUTO) 291 K/uL (130-400); RED BLOOD CELL COUNT(AUTO) 5.09 MIL/uL (4.50-6.20); RED CELL DISTRIBUTION WIDTH 12.3 % (11.0-15.5); WHITE BLOOD COUNT (AUTO) 10.5 K/uL (4.8-10.8)
[2025-03-24 17:50] LABS: CREATININE 1.3 mg/dL (0.5-1.3); GLOMERULAR FILTR. RATE CALC 78 mL/min (>90); GLUCOSE,RANDOM 88 mg/dL (70-105); SODIUM SERUM 141 mmol/L (136-145); UREA NITROGEN, BLOOD 12 mg/dL (7-18)
--- NOTE | 2025-03-24 17:50 | EKG ---
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
[2025-03-24 17:54] LABS: ASPARTATE AMINOTRANSFERASE 35 U/L (10-37); TOTAL PROTEIN, SERUM 7.5 g/dL (6.0-8.3)
--- NOTE | 2025-03-24 18:19 | NUR ---
DC PATIENT WAS DC'D BY DR ISHMAEL Fairchild DC'D PATIENTS IV WITH CATH STILL INTACT AND APPLIED 2X2 GAUZE WITH COBAN I EXPLAINED TO PATIENTR TO FOLLOW UP WITH PCP, PROVIDED INFO BASED ON DIAGNOSIS, PRESCRIPTIONS, AND ANSWERED ANY FOLLOW UP QUESTIONS I WHEELCHAIRED PATIENT OUT OF ED, NO COMPLICATIONS Addendum: 03/24/25 at 1907 by YUE DISREGARD PAST NOTE, CHARTED ON WRONG PATIENT
[2025-03-24 18:50] LABS: APPEARANCE,URINE CLEAR (CLEAR); GLUCOSE, URINE (UA) NEGATIVE (NEGATIVE); LEUKOCYTE ESTERASE ,URINE NEGATIVE Leu/uL (NEGATIVE); NITRATE,URINE NEGATIVE (NEGATIVE); OCCULT BLOOD,URINE NEGATIVE (NEGATIVE)
[2025-03-24 18:51] LABS: ADD UA MICROSCOPIC NO
[2025-03-24 18:53] LABS: SQUAMOUS EPITHELIAL CELL,UR RARE /HPF (0-2)
[2025-03-24 18:56] LABS: AMPHET/METH SCREEN,URINE NEGATIVE (NEGATIVE); BARBITURATE SCREEN, URINE NEGATIVE (NEGATIVE); CANNABINOID SCREEN,URINE POSITIVE (NEGATIVE); COCAINE SCREEN,URINE NEGATIVE (NEGATIVE)
--- NOTE | 2025-03-24 19:04 | NUR ---
[facility] called and made aware of patient. [facility] customer service representative teller will be coming to assess patient. case#[id number]
--- NOTE | 2025-03-24 19:21 | NUR ---
TROPICAL SCREENER ARRIVED AT THIS TIME.
--- NOTE | 2025-03-24 20:44 | NUR ---
PER TROPICAL SCREENER, PT MEETS CRITERIA FOR ADMISSION. WILL NEED TO BE TRANSFERRED TO ANOTHER FACILITY
--- NOTE | 2025-03-24 23:00 | NUR ---
PATIENT HAS BEEN ACCEPTED AT [facility], DR TONEY IS THE ACCEPTING PHYSICIAN, REPORT [phone], [facility] HAS BEEN CONTACTED AND WILL ARRIVE IN 1-1.5 HOURS FOR TRANSPORT
--- NOTE | 2025-03-24 23:48 | NUR ---
REPORT GIVEN TO JONO FLETCHER AT [facility]. PT HAS A BED RESERVED BUT WILL NOT BE TRANSFERRED UNTIL 7AM
--- NOTE | 2025-03-25 02:39 | NUR ---
[facility] CALLED AT THIS TIME, PT WILL BE PICKED UP AND TRANSFERRED TO [place] IN APPROX 45 MIN.
--- NOTE | 2025-03-25 03:23 | NUR ---
DYLAN COLLIER [phone] ARRIVED TO ER
[2025-03-25 03:29] VITALS: BP 119/64; PULSE 80; RESP 16; TEMP 97.9; O2SAT 98
== END 2025-03-25 03:31 ==
LOC: EDH 16:18
DX: R10.13 Epigastric pain (principal); R10.10 Upper abdominal pain, unspecified; F17.200 Nicotine dependence, unspecified, uncomplicated; Z79.899 Other long term (current) drug therapy; Z90.49 Acquired absence of other specified parts of digestive tract; Z91.013 Allergy to seafood
CPT/HCPCS: 99285; 96374; 96361; 96375; 80076; 83735; 84484; 80048; 80305; 83690; 85025; 83605; 36415; 96376; 93005; 81003; G0481; J7030 ×2; J2405 ×2; J2470

== ENCOUNTER 2025-03-30 11:12 | Inpatient (IN) | payer SELFPAY ==
[~2025-03-30] VITALS: Ht 177.8 cm; Wt 112.9 kg
--- NOTE | 2025-03-30 11:35 | ERN ---
ED Note History of Present Illness Stated Complaint: N/V LOSS OF APPETITE Chief Complaint: Multiple Complaints Time Seen by MD: 11:18 Dictation: PATIENT IS A 24-YEAR-OLD MALE COMING IN TODAY WITH COMPLAINTS OF GENERALIZED ABDOMINAL CRAMPING WITH NAUSEA VOMITING FOR THE LAST TWO DAYS. HE STATES HE HAS LOST SEVERAL LB OVER THE LAST WEEK DUE TO VOMITING. STATES HE IS CURRENTLY AT THE PSYCHIATRIC FACILITY DUE TO DEPRESSION. HE LIFT [facility] FOR AN APPOINTMENT HE HAD THIS MORNING AND WAS TOLD TO COME TO THE EMERGENCY ROOM FOR ADMISSION FOR INTRACTABLE NAUSEA VOMITING. I ASKED HIM ABOUT THE MARIJUANA USE SINCE HE HAS SEVERAL VISITS WITH CANNABINOID SYNDROME AND HE SAID HIS LAST INTAKE OF MARIJUANA WAS 17 DAYS AGO. Allergies: Coded Allergies: shellfish derived (Unverified Allergy, Unknown, HIVES, 06/02/22) Home Meds Active Scripts Potassium Bicarbonate/Cit AC (Klor-Con-Ef 25 Meq Tab Eff) 25 Meq Tablet.eff, 1 TAB PO DAILY for 2 Days, #2 TAB 0 Refills Prov:MOE OLSEN FUR CLEANER 03/30/25 Promethazine HCl (Promethazine HCl) 25 Mg Supp.rect, 1-2 SUPP MO QID for 3 Days, #20 SUPP 0 Refills Prov:MOE OLSENP 03/30/25 Sucralfate (Sucralfate) 1 Gram Tablet, 1 GM PO ACHS for 30 Days, #60 TAB Prov:JOSE VERGARA MD 03/21/25 Esomeprazole Magnesium (Esomeprazole Magnesium) 40 Mg Capsule.dr, 40 MG PO BIDAC for 30 Days, #60 CAP Prov:JOSE VERGARA MD 03/21/25 Past Medical History Past Medical History: No Pertinent History Additional Past Medical Hx: Gallbladder disease Surgical History: Cholecystectomy Family History: Negative Social History: Smokers, Drugs, Other RN Note Reviewed/Agreed w/PFSH: Yes Review of System Dictation CONSTITUTIONAL: NEGATIVE EXCEPT FOR HPI HEAD/FACE: NEGATIVE EXCEPT FOR HPI EENT: NEGATIVE EXCEPT FOR HPI RESPIRATORY: NEGATIVE EXCEPT FOR HPI GASTROINTESTINAL/ABDOMINAL: NEGATIVE EXCEPT FOR HPI ABDOMINAL CRAMPING WITH NA USEA VOMITING GENITOURINARY: NEGATIVE EXCEPT FOR HPI MUSCULOSKELETAL: NEGATIVE EXCEPT FOR HPI INTEGUMENTARY: NEGATIVE EXCEPT FOR HPI NEUROLOGICAL/PSYCH: NEGATIVE EXCEPT FOR HPI HEMATOLOGIC/LYMPHATIC: NEGATIVE EXCEPT FOR HPI ALL SYSTEMS NEGATIVE, EXCEPT NOTED ABOVE. 13 POINT REVIEW OF SYSTEMS ASSESSED AND ALL NEGATIVE EXCEPT FOR ABOVE. Initial Vital Sign VS Vital Signs Date Time Temp Pulse Resp B/P (MAP) Pulse Ox O2 Delivery O2 Flow Rate FiO2 03/30/25 11:14 98.2 96 16 142/83 99 Room Air 03/30/25 11:44 0 21 Physical Exam Dictation VITAL SIGNS REVIEWED GENERAL APPEARANCE: ALERT, ORIENTED X 3, MILD ACUTE DISTRESS, WELL DEVELOPED, NOURISHED. HEAD AND FACE: NON-TRAUMATIC. EYES: PERRL, PINK CONJUNCTIVAS, EYELID NO TRAUMA, ANTERIOR CHAMBER WITH ARCUS SENILIS. EARS: PINNAS INTACT AND NO SIGNS OF TRAUMA OR ERYTHEMA EAR CANALS CLEAR AND NO DISCHARGE TM NO ERYTHEMA NOSE: NO DISCHARGE, NO BLEEDING. OROPHARYNX: MOUTH NORMAL, TONGUE PINK, PHARYNX CLEAR,NO ERYTHEMA, TONSILS NO EXUDATES, NO ABSCESSES NOTED, MUCOUS MEMBRANE MOIST NECK: SUPPLE, NON-TENDER, NO THYROMEGALY, NO MASSES, NO JVD, NO BRUITS BREAST:DEFERRED CHEST:NO TENDERNESS, NO CREPITUS, NO PARADOXICAL MOVEMENT, NO RETRACTIONS LUNGS:CLEAR, WELL-VENTILATED, SYMMETRIC, NO RALES, NO WHEEZING, NO RHONCHI, NO STRIDOR, GOOD BREATH SOUNDS BILATERALLY HEART: REGULAR RATE, REGULAR RHYTHM, NO MURMUR, NO GALLOPS VASCULAR: NO PERIPHERAL EDEMA, ABDOMEN: SOFT, POSITIVE BOWEL SOUNDS, NONDISTENDED, NO GUARDING, NONTENDER, NO REBOUND, NO MASSES NO HEPATOMEGALY, NO SPLENOMEGALY, NO MCGRAW'S SIGN, NO HERNIAS. NO FOCAL TENDERNESS RECTAL: DEFERRED GENITAL: DEFERRED NEUROLOGICAL: NORMAL SPEECH, MOTOR FUNCTION INTACT, SENSORY FUNCTION INTACT MUSCULOSKELETAL: NECK NONTENDER, FULL RANGE OF MOTION, BACK NONTENDER, FULL RANGE OF MOTION, EXTREMITIES: NONTENDER, FULL RANGE OF MOTION SKIN: COLOR PINK, DRY, NO TURGOR, NO RASH, NO LACERATIONS, NO ABRASIONS, NO CONTUSIONS. LYMPHATIC: DEFERRED Results (Laboratory/Radiology) Laboratory/Radiology Laboratory Tests Test 03/30/25 11:20 03/30/25 11:39 Urine Color YELLOW (YELLOW) Urine Appearance CLEAR (CLEAR) Urine pH 6.0 (5.0-8.0) Urine Specific [place] 1.019 (1.001-1.031) Urine Protein NEGATIVE mg/dL (NEGATIVE) Urine Glucose (UA) NEGATIVE mg/dL (NEGATIVE) Urine Ketones 40 mg/dL (NEGATIVE) H Urine Occult Blood NEGATIVE (NEGATIVE) Urine Nitrate NEGATIVE (NEGATIVE) Urine Bilirubin NEGATIVE mg/dL (NEGATIVE) Urine Urobilinogen 0.2 mg/dL (0.2-1.0) Urine Leukocyte Esterase NEGATIVE Shankar/uL Urine RBC 0-1 /HPF (0-1) Urine WBC 2-5 /HPF (0-1) H Urine Bacteria None Seen /HPF (None Seen) Urine Opiates Screen NEGATIVE (NEGATIVE) Urine Barbiturates Screen NEGATIVE (NEGATIVE) Urine Phencyclidine Screen NEGATIVE (NEGATIVE) Urine Amphetamines Screen NEGATIVE (NEGATIVE) Urine Benzodiazepines Screen NEGATIVE (NEGATIVE) Urine Cocaine Screen NEGATIVE (NEGATIVE) Urine Marijuana (THC) Screen POSITIVE (NEGATIVE) H White Blood Count 9.6 K/uL (4.8-10.8) Red Blood Count 5.70 MIL/uL (4.50-6.20) Hemoglobin 17.2 g/dL (14.0-18.0) Hematocrit 46.6 % (42-54) Mean Corpuscular Volume 81.8 fL (79-99) Mean Corpuscular Hemoglobin 30.2 pg (27.0-33.0) Mean Corpuscular Hemoglobin Concent 36.9 g/dL (32.0-36.0) H Red Cell Distribution Width 12.0 % (11.0-15.5) Platelet Count 297 K/uL (130-400) Mean Platelet Volume 9.4 fL (7.5-10.5) Immature Granulocyte % (Auto) 0.3 % (0-1) Neutrophils (%) (Auto) 74.9 % (40.0-77.0) Lymphocytes (%) (Auto) 15.5 % (21.0-51.0) L Monocytes (%) (Auto) 8.6 % (3.0-13.0) Eosinophils (%) (Auto) 0.2 % (0.0-8.0) Basophils (%) (Auto) 0.5 % (0.0-5.0) Neutrophils # (Auto) 7.2 K/uL (1.8-7.7) Lymphocytes # (Auto) 1.5 K/uL (1.0-4.8) Monocytes # (Auto) 0.8 K/uL (0.1-1.0) Eosinophils # (Auto) 0.02 K/uL (0.00-0.70) Basophils # (Auto) 0.05 K/uL (0.00-0.20) Absolute Immature Granulocyte (auto 0.03 K/uL (0-1) Nucleated Red Blood Cells 0.0 % (0.0-0.19) Sodium Level 138 mmol/L (136-145) Potassium Level 3.3 mmol/L (3.5-5.1) L Chloride Level 99 mmol/L (101-111) L Carbon Dioxide Level 22 mmol/L (21-32) Blood Urea Nitrogen 13 mg/dL (7-18) Creatinine 1.2 mg/dL (0.5-1.3) Glomerular Filtration Rate Calc 86 mL/min (>90) Random Glucose 109 mg/dL (70-105) H Total Calcium 9.2 mg/dL (8.5-10.1) Lipase 40 U/L (16-77) Labs Reviewed?: Yes ED Course ED Course Orders Procedure Category Date Status Time Cbc With Differential LAB 03/30/25 Complete 11:32 Urinalysis Profile LAB 03/30/25 Complete 11:32 0.9%Nacl 1000ml (Ns PHA 03/30/25 Complete 1000ml) 12:00 Ondansetron 4mg Inj PHA 03/30/25 Complete (Zofran 4mg Inj) 12:00 Dicyclomine Hcl PHA 03/30/25 Complete (Bentyl 20mg Inj) 12:00 Famotidine 20mg Vial PHA 03/30/25 Complete (Pepcid 20mg Vial) 12:00 Lipase LAB 03/30/25 Complete 11:32 Basic Metabolic Panel LAB 03/30/25 Complete 11:32 Drug Screen Urine LAB 03/30/25 Complete 11:42 Potassium Bicarb/Cit PHA 03/30/25 Complete Ac 25meq (K-Lyte Ta 14:00 Metoclopramide 10 PHA 03/30/25 Complete Mg/2 Ml Vial (Reglan 1 14:00 Gastroenterology CONPHYSVC 03/30/25 Transmitted Consult 15:05 Edm Admit Bridge Order ADM 03/30/25 Transmitted 15:05 Current Medications Medications (Trade) Dose Ordered Sig/Rissa Route PRN Reason Start Time Stop Time Status Last Admin Dose Admin Dicyclomine HCl (Bentyl 20mg Inj) 20 mg ONCE ONCE IM 03/30/25 12:00 03/30/25 12:01 DC 03/30/25 11:57 Famotidine (Pepcid 20mg Vial) 20 mg ONCE ONCE IV 03/30/25 12:00 03/30/25 12:01 DC 03/30/25 11:56 Metoclopramide HCl (regLAN 10MG IV) 10 mg ONCE ONCE IVP 03/30/25 14:00 03/30/25 14:01 DC Ondansetron HCl (zoFRAN 4MG INJ) 4 mg ONCE ONCE IVP 03/30/25 12:00 03/30/25 12:01 DC 03/30/25 11:56 Potassium Bicarbonate (K-Lyte Tablet Eff 25 Meq Tablet.eff) 25 meq ONCE ONCE PO 03/30/25 14:00 03/30/25 13:54 DC Sodium Chloride 1,000 ml @ 0 mls/hr ONCE ONCE IV 03/30/25 12:00 03/30/25 12:01 DC 03/30/25 11:57 Vital Signs Date Time Temp Pulse Resp B/P (MAP) Pulse Ox O2 Delivery O2 Flow Rate FiO2 03/30/25 11:44 85 20 153/105 99 Room Air* 0 21 03/30/25 11:14 98.2 96 16 142/83 99 Room Air 1350/SPOKE WITH MOTHER AND PATIENT AT LENGTH. HE SAID HE DOES BETTER WITH PHENERGAN. I ADVISED HIM CONTINUE CLEAR LIQUIDS AFTER TOMORROW AND I WOULD SEND HIM HOME WITH PHENERGAN SUPPOSITORIES AND HE COULD WAIT 30-40 MINUTES BEFORE ATTEMPTING ANY FLUIDS PILL A ADDITIONALLY I TOLD HIM TO STOP MARIJUANA USE. HE IN HIS MOTHER ARE BOTH AWARE THAT HIT CONTINUES TO HAVE MARIJUANA IN HIS URINE OVER THE LAST SEVERAL WEEKS. 1505/J SPOKE WITH DR.UAN GARCIA/CV RN AND HE SAID HE WOULD LIKE PATIENT ADMITTED FOR GASTROPARESIS INTRACTABLE NAUSEA VOMITING AND HAVE PATIENT RECEIVED IV FLUIDS PPIS AND REGLAN. SPOKE WITH DR. SANFORD AND HE WOULD AGREED TO ADMIT PATIENT. AFTER Medical Decision Making MDM MDM: DIFFERENTIAL DIAGNOSIS: CANNABIS ABUSE SYNDROME/ELECTROLYTE IMBALANCE/DEHYDRATION/UTI/MARIJUANA USER RATIONALE: TESTS CONSIDERED AND ORDERED SECONDARY TO SHARED DECISION MAKING INCLUDE: LABS PREVIOUS OUTSIDE RECORDS REVIEWED: OLD ER VISITS. RISK OF COMPLICATION AND/OR MORBIDITY OR MORTALITY OF PATIENT MANAGEMENT: NONE MEDICATIONS-PER MEDICATION RECONCILIATION NEED FOR HOSPITALIZATION: PATIENT DOES NOT MEET CRITERIA FOR HOSPITALIZATION. NO NEED FOR EMERGENCY MAJOR/MINOR SURGERY: NO THERE ARE NO SOCIAL CONCERNS WITH THIS PATIENT. PRESCRIPTION DRUG MANAGEMENT PHENERGAN SUPPOSITORIES PRESCRIPTIONS WILL INCLUDE SYMPTOMATIC CARE PATIENT'S PRIOR EXTERNAL MEDICAL RECORDS FROM OTHER ER VISITS WERE REVIEWED BY ME INDICATED. PRIOR TESTING AND RESULTS FROM PREVIOUS VISITS WERE REVIEWED. PRIOR TESTS WERE TAKEN INTO ACCOUNT WITH MEDICAL DECISION MAKING AND RESOURCE UTILIZATION, INDEPENDENT HISTORIAN/HISTORIANS WERE USED TO OBTAIN COMPLETE MEDICAL HISTORY. I INDEPENDENTLY INTERPRETED THE TEST THAT WERE PERFORMED, RESULTS WERE REVIEWED BY ME AND CONSIDERED FINDINGS ON RADIOLOGY IF ORDERED. MEDICAL MANAGEMENT AND EXAMINATION INTERPRETATION DISCUSSIONS WERE HAD BY ME WITH OTHER QUALIFIED HEALTHCARE PROFESSIONALS INDICATED FOR THE PATIENT'S CARE. DX & DISP Disposition: Inpatient Decision to Admit Time: 15:10 Departure Impression: Primary Impression: Cannabinoid hyperemesis syndrome Additional Impressions: Dehydration, Hypochloremia, Hypokalemia, Marijuana smoker Condition: Stable Scripts Potassium Bicarbonate/Cit AC (Klor-Con-Ef 25 Meq Tab Eff) 25 Meq Tablet.eff 1 TAB PO DAILY for 2 Days, #2 TAB 0 Refills Prov: MOE OLSEN FUR CLEANER 03/30/25 Promethazine HCl (Promethazine HCl) 25 Mg Supp.rect 1-2 SUPP MO QID for 3 Days, #20 SUPP 0 Refills Prov: MOE OLSEN FUR CLEANER 03/30/25 Additional Instructions: FOLLOW-UP WITH PRIMARY CARE PROVIDER IN 1 TO 2 DAYS. TAKE MEDICATIONS DIRECTED HERE IN THE EMERGENCY ROOM. OKAY TO CONTINUE HOME MEDICATIONS UNLESS OTHERWISE DISCUSSED DURING YOUR VISIT IN THE EMERGENCY ROOM TODAY. RETURN TO YOUR NEAREST EMERGENCY ROOM IF SYMPTOMS WORSEN OR IF THERE IS NO IMPROVEMENT. CALL 911 IF YOU NEED IMMEDIATE ASSISTANCE. TAKE TYLENOL OR MOTRIN [id number] NEEDED AND IF NO CONTRAINDICATIONS ARE PRESENT. INCREASE ORAL HYDRATION. A WOUND CULTURE OR URINE CULTURE WAS ORDERED HERE IN THE EMERGENCY ROOM DEPARTMENT PLEASE FOLLOW-UP WITH PRIMARY CARE PROVIDER AND ADVISE THEM TO GET REPEAT PORTS FROM OUR FACILITY. IF YOU HAD ANY JENNIFFER WRAP/SPLINTS THAT WERE APPLIED HERE, PLEASE DO NOT REMOVE THEM UNTIL YOU SEE YOUR PRIMARY CARE OR SPECIALTY. STOP MARIJUANA USE. STOP ALL ORAL MEDICATIONS AND USE PHENERGAN SUPPOSITORIES ONE TWO TO RECTALLY EVERY 6 HOURS NEEDED FOR VOMITING. BEGIN CLEAR LIQUID DIET TONIGHT AND WAIT 30-40 MINUTES AFTER PHENERGAN BEFORE ATTEMPTING ANY FLUIDS OR FOOD. Referrals: SELF,REFERRAL (PCP) Time of Disposition: 13:56 I have reviewed the case, and I agree with, Diagnosis and Plan MOE OLSENP Mar 30, 2025 11:35
[2025-03-30 11:49] LABS: IMMATURE GRANULOCYTE ABSOLUTE 0.03 K/uL (0-1); NUCLEATED RED BLOOD CELLS 0.0 % (0.0-0.19); PLATELET COUNT (AUTO) 297 K/uL (130-400); RED BLOOD CELL COUNT(AUTO) 5.70 MIL/uL (4.50-6.20); RED CELL DISTRIBUTION WIDTH 12.0 % (11.0-15.5); WHITE BLOOD COUNT (AUTO) 9.6 K/uL (4.8-10.8)
[2025-03-30 11:51] LABS: APPEARANCE,URINE CLEAR (CLEAR); GLUCOSE, URINE (UA) NEGATIVE (NEGATIVE); LEUKOCYTE ESTERASE ,URINE NEGATIVE Leu/uL (NEGATIVE); NITRATE,URINE NEGATIVE (NEGATIVE); OCCULT BLOOD,URINE NEGATIVE (NEGATIVE)
[2025-03-30] MEDS: FAMOTIDINE 20MG VIAL IV ONE (11:56)
[2025-03-30] MEDS: DICYCLOMINE 20MG (10MG/ML) AMP IM ONE (11:57)
[2025-03-30] MEDS: 0.9%NACL 1000ML 1,000 ML IV ONE (11:57)
[2025-03-30 11:58] LABS: CREATININE 1.2 mg/dL (0.5-1.3); GLOMERULAR FILTR. RATE CALC 86.0 mL/min (>90); GLUCOSE,RANDOM 109.0 mg/dL (70-105); SODIUM SERUM 138.0 mmol/L (136-145); UREA NITROGEN, BLOOD 13.0 mg/dL (7-18)
[2025-03-30 12:01] LABS: ADD UA MICROSCOPIC YES
[2025-03-30 13:38] LABS: AMPHET/METH SCREEN,URINE NEGATIVE (NEGATIVE); BARBITURATE SCREEN, URINE NEGATIVE (NEGATIVE); CANNABINOID SCREEN,URINE POSITIVE (NEGATIVE); COCAINE SCREEN,URINE NEGATIVE (NEGATIVE)
[2025-03-30] MEDS ORDERED: PROM25SU58 PR (13:57)
[2025-03-30] MEDS ORDERED: POTA25TA41 PO (13:58)
[2025-03-30] MEDS ORDERED: MAGNESIUM 2GM PREMIX 50ML 50 ML IV PRN (15:30)
[2025-03-30] MEDS: 0.9%NACL 1000ML 1,000 ML IV SCH (16:22)
--- NOTE | 2025-03-30 16:47 | NUR ---
REPORT GIVEN TO NURSE DE JESUS. PT IS TO [phone]
[2025-03-30 18:08] VITALS: BP 137/90; PULSE 99; RESP 20; TEMP 98.3
[2025-03-30 19:15] VITALS: O2SAT 97
[2025-03-30 19:45] VITALS: BP 136/76; PULSE 91; RESP 19; TEMP 98.5
[2025-03-30 23:34] VITALS: BP 124/77; PULSE 69; RESP 18; TEMP 97.8
[2025-03-31] MEDS: PoTASSium chloRIDE 20MEQ ER 20 MEQ ERTAB PO PRN (00:18)
--- NOTE | 2025-03-31 01:58 | NUR ---
CALL PLACED TO DUE TO PATIENT WITH NAUSEA,VOMITING AND ANXIETY, NEW TELEPHONE ORDER /READ BACK OBTAINED.
[2025-03-31] MEDS ORDERED: PROMETHAZINE HCL 25 MG/ML 1ML AMPULE IM PRN (02:00)
[2025-03-31] MEDS: PROMETHAZINE HCL 25 MG/ML 1ML AMPULE IM PRN (03:05)
[2025-03-31 04:00] VITALS: BP 154/88; PULSE 90; RESP 18; TEMP 97.7
[2025-03-31 05:33] LABS: IMMATURE GRANULOCYTE ABSOLUTE 0.05 K/uL (0-1); NUCLEATED RED BLOOD CELLS 0.0 % (0.0-0.19); PLATELET COUNT (AUTO) 275 K/uL (130-400); RED BLOOD CELL COUNT(AUTO) 5.15 MIL/uL (4.50-6.20); RED CELL DISTRIBUTION WIDTH 12.2 % (11.0-15.5); WHITE BLOOD COUNT (AUTO) 9.3 K/uL (4.8-10.8)
[2025-03-31 05:49] LABS: ASPARTATE AMINOTRANSFERASE 28.0 U/L (10-37); CREATININE 1.2 mg/dL (0.5-1.3); GLOMERULAR FILTR. RATE CALC 86.0 mL/min (>90); GLUCOSE,RANDOM 88.0 mg/dL (70-105); SODIUM SERUM 141.0 mmol/L (136-145); TOTAL PROTEIN, SERUM 7.1 g/dL (6.0-8.3); UREA NITROGEN, BLOOD 9.0 mg/dL (7-18)
[2025-03-31] MEDS: PoTASSium chl 10% ELIXIR 20MEQ 20 MEQ/15 ML UDCUP PO PRN (06:02)
[2025-03-31 08:00] VITALS: O2SAT 98
[2025-03-31 08:07] VITALS: BP 174/98; PULSE 70; RESP 18; TEMP 98
--- NOTE | 2025-03-31 10:00 | HP ---
DATE OF SERVICE: 03/30/2025 PRESENTING COMPLAINT: Nausea and vomiting and epigastric discomfort. HISTORY OF PRESENT ILLNESS: A 24-year-old male with history of gastroparesis, chronic marijuana abuse, and cholelithiasis. Presented to the hospital with above complaint. The patient was seen in the Gastroenterology Clinic today, was sent to the Emergency Room for further evaluation. The patient was given results of gastric emptying study, which came back positive. The patient at ER found with dehydration and hypokalemia. No fever or chest pain. No diarrhea. The patient claims he stopped using marijuana about 17 days ago, but urine toxicology was still positive. PAST MEDICAL HISTORY: 1. Gastroparesis. 2. Marijuana abuse. 3. Cholelithiasis. 4. Depression. PAST SURGICAL HISTORY: Cholecystectomy. ALLERGIES: No known drug allergies. HOME MEDICATIONS: Reviewed. SOCIAL HISTORY: Uses marijuana, denied tobacco and alcohol use. FAMILY HISTORY: Noncontributory. REVIEW OF SYSTEMS: Greater than 10-systems were reviewed and negative except as documented above. PHYSICAL EXAMINATION: GENERAL: A young male. VITAL SIGNS: Temperature 98.2, pulse 99, respiratory rate 20, blood pressure 137/90. EYES: No icterus. Pupils equal and reactive. HENT: No oral thrush seen. Moist oral mucosa. NECK: Supple. No JVD or thyromegaly. LUNGS: Good air entry. No rales. No rhonchi. CARDIOVASCULAR: S1 and S2 regular. No murmur or gallop. ABDOMEN: Full, soft, nontender. Bowel sounds present. CENTRAL NERVOUS SYSTEM: Awake, alert, and oriented x3. No focal deficits. SKIN: No rashes, itchness. LYMPHATIC: No peripheral lymphadenopathy. BACK: No deformity, no pressure ulcer. LABORATORY DATA: Sodium 138, potassium 3.3, BUN 13, creatinine 1.2. WBC 9.7, hemoglobin 13.2, platelets 297. Urine toxicology positive for marijuana. ASSESSMENT: A 24-year-old male, who presents with nausea and vomiting. Current problems include: 1. Dehydration. 2. Nausea and vomiting. 3. Gastroparesis. 4. Chronic marijuana use. PLAN: 1. Admit the patient to medical floor. 2. The patient will be placed on . 3. Given IV Reglan. 4. Clear liquid diet. 5. Gastroenterology consult. 6. Tylenol as needed for pain. 7. Home medication will be reconciled. TID: [id number] RECEIPT: [id number]
[2025-03-31 11:47] VITALS: BP 136/72; PULSE 64; RESP 18; TEMP 98.1
--- NOTE | 2025-03-31 13:45 | NUR ---
PATIENT WAS DISCHARGED. IV REMOVED INTACT. PATIENT ASKED TO RECEIVE LAST DOSE OF REGLAN IV PRIOR TO LEAVING AFTER IV HAD ALREADY BEEN REMOVED. CONTACTED PHARMACY TO VERIFY IF REGLAN COULD BE ADMINISTERED VIA IM RATHER THAN IVP. PHARMACY CONFIRMED, SAME DOSAGE JUST ROUTE TO BE CHANGED. ORDER CHANGED. PATIENT EDUCATED ON FOLLOW UP WITH PCP IN 2-3 DAYS AND TO CONTINUE WITH PO REGLAN UPON DISCHARGE. ALL QUESTIONS AND CONCERNS ANSWERED. PATIENT TAKEN DOWN VIA WHEELCHAIR ALERT AND ORIENTED X 4.
--- NOTE | 2025-03-31 19:00 | DS ---
Discharge Summary Hospital Course This is a 24-year-old male with history of gastroparesis, chronic marijuana abuse, and cholelithiasis. Presented to the hospital with chief complaint of nausea vomiting and epigastric discomfort. The patient was seen in the Gastroenterology Clinic today, was sent to the Emergency Room for further evaluation. Patient had a gastric emptying study done on 03/20/2025 which was read on 03/22/2025 with findings of suggestive for gastroparesis. Patient was updated with these findings. The patient at ER found with dehydration and hypokalemia. No fever or chest pain. No diarrhea. The patient claims he stopped using marijuana about 17 days ago, however the urine toxicology was still positive. 03/31/2025: Today patient was seen at bedside in room 313. Denying nausea or vomiting. No abdominal pain. Patient aware to continue on the metoclopramide for the gastroparesis. Patient is afebrile, temperature is 98.1. Patient will be discharged to home today. FINAL DISCHARGE DIAGNOSIS: Gastroparesis newly diagnosed. Nausea or vomiting. Dehydration. Chronic marijuana use. PLAN: Discharge patient to home today. Continue home medications and patient is to follow up on prescription for Reglan. Follow up with PCP in 3-5 days. Follow up with GI. This case was reviewed and discussed with my supervising physician Dr. Mcdowell and the above assessment and plan was formulated and agreed upon. JAZZY NIELSON Mar 31, 2025 19:00
== END 2025-03-31 13:45 | disposition home or self-care (01) | DRG 392 ==
LOC: EDH 11:12 → EDHIP 11:13 → EDH 14:29 → 3CH 17:15
PROVIDERS: ADMIT Internal Medicine Infectious Disease; ATTEND Internal Medicine Infectious Disease
DX: K31.84 Gastroparesis (principal); E86.0 Dehydration; E87.6 Hypokalemia; R11.16 Cannabis hyperemesis syndrome; F12.90 Cannabis use, unspecified, uncomplicated; E87.8 Other disorders of electrolyte and fluid balance, not elsewhere classified; F32.A Depression, unspecified
CPT/HCPCS: 36415; 80048; 80053; 80305; 81001; 83690; 83735; 85025; 96361; 96372; 96374; 96375; 99285; G0378; J0500; J2405; J2470; J2550; J2765; J7030; J1308